=== PATIENT | female | born 1980 | race Caucasian/White ===

== ENCOUNTER 2017-07-17 17:55 | Inpatient (IN) | payer MEDICAID ==
--- NOTE | 2017-07-17 18:50 | EDM.PDOC ---
ED HPI GENERAL MEDICAL PROBLEM - General Chief Complaint: Upper Extremity Injury/Pain Stated Complaint: Swollen hand Time Seen by Provider: 07/17/17 18:35 Source of Information: Reports: Patient, RN Notes Reviewed History Limitations: Reports: No Limitations - History of Present Illness INITIAL COMMENTS - FREE TEXT/NARRATIVE: 37 year old female presents to the ED today with complaints of 1 week history of left arm swelling and pain. The symptoms started in the left antecubital and began to radiate up to her axilla and down to her wrist. She then developed swelling and pain to her wrist. She noticed streaking on the volar aspect of her inner forearm. She has checked her temp several times but denies fever. She denies injury or open skin lesions to the arm. She reports a bump on her axilla. She has a history of cellulitis to the arm. She had Bactrim DS left over at home and started this 4 days ago with no improvement. Left Hand Pain Score (Numeric/FACES): 7 - Related Data Allergies Allergy/AdvReac Type Severity Reaction Status Date / Time acetaminophen Allergy Redness Verified 07/17/17 18:07 amoxicillin Allergy Redness Verified 07/17/17 18:07 Penicillins Allergy Redness Verified 07/17/17 18:07 Home Meds: Home Meds . 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: Musculoskeletal History: Reports: Osteoarthritis Neurological History: Reports: Migraines Psychiatric History: Reports: Anxiety Endocrine/Metabolic History: Reports: Diabetes, Type I, Hypothyroidism Oncologic (Cancer) History: Reports: Cervix - Infectious Disease History Infectious Disease History: Reports: Chicken Pox - Past Surgical History HEENT Surgical History: Reports: Tonsillectomy Cardiovascular Surgical History: Reports: None Respiratory Surgical History: Reports: None Female Surgical History: Reports: Section Endocrine Surgical History: Reports: None Neurological Surgical History: Reports: None Musculoskeletal Surgical History: Reports: None Oncologic Surgical History: Reports: Other (See Below) Other Oncologic Surgeries/Procedures: LEEP Social & Family History - Tobacco Use Smoking Status *Q: Current Every Day Smoker Years of Tobacco use: 15 Packs/Tins Daily: 0.5 Used Tobacco, but Quit: No Second Hand Smoke Exposure: No - Caffeine Use Caffeine Use: Reports: Coffee, Energy Drinks, Soda, Tea - Recreational Drug Use Drug Use in Last 12 Months: Yes Recreational Drug Type: Reports: Marijuana/Hashish Other Recreational Drug Type: claims to have medicinal marijuana Review of Systems - Review of Systems Review Of Systems: See Below Respiratory: Reports: No Symptoms. Denies: Shortness of Breath Cardiovascular: Reports: No Symptoms. Denies: Chest Pain Musculoskeletal: Reports: Arm Pain Skin: Reports: Other (increased warmth and swelling left arm). Denies: Wound Neurological: Denies: Numbness, Tingling, Weakness ED EXAM, GENERAL - Physical Exam Exam: See Below Exam Limited By: No Limitations General Appearance: Alert, WD/WN, No Apparent Distress Respiratory/Chest: No Respiratory Distress, Lungs Clear, Normal Breath Sounds Cardiovascular: Regular Rate, Rhythm Extremities: Normal Capillary Refill, Joint Swelling (left wrist and hand ), Arm Pain, Increased Warmth (left forearm, wrist and hand ), Other ( lymphadenopathy to left axilla ). No: Redness Neurological: Alert, Normal Cognition, No Motor/Sensory Deficits Skin Exam: Warm, Dry, Ecchymosis (left arm ), Increased Warmth (left arm ) Course - Vital Signs Last Recorded V/S: Last Vital Signs Temp 98.2 F 07/17/17 18:03 Pulse 97 07/17/17 18:03 Resp 18 07/17/17 18:03 BP 155/84 H 07/17/17 18:03 Pulse Ox 100 07/17/17 18:03 - Orders/Labs/Meds Orders: Active Orders 24 hr Category Date Time Status CULTURE ANAEROBIC + SMEAR [RM] Stat Lab 07/17/17 21:31 Uncollected Labs: Laboratory Tests 07/17/17 07/17/17 07/17/17 Range/Units 19:15 19:15 19:15 WBC 7.54 (3.98-10.04) K/mm3 RBC 4.90 (3.98-5.22) M/mm3 Hgb 13.5 (11.2-15.7) gm/L Hct 39.1 (34.1-44.9) % MCV 79.8 (79.4-94.8) fl MCH 27.6 (25.6-32.2) pg MCHC 34.5 (32.2-35.5) g/dl RDW Std Deviation 40.7 (36.4-46.3) fL Plt Count 226 (182-369) K/mm3 MPV 10.6 (9.4-12.3) fl Neutrophils % (Manual) 48 (40-60) % Band Neutrophils % 0 (0-10) % Lymphocytes % (Manual) 42 H (20-40) % Atypical Lymphs % 0 % Monocytes % (Manual) 6 (2-10) % Eosinophils % (Manual) 4 (0.7-5.8) % Basophils % (Manual) 0 L (0.1-1.2) Platelet Estimate Adequate RBC Morph Comment Normal ESR 35 H (0-20) mm/hr Sodium 134 L (136-145) mEq/L Potassium 3.9 (3.5-5.1) mEq/L Chloride 98 (98-107) mEq/L Carbon Dioxide 30 (21-32) mEq/L Anion Gap 9.9 (5-15) BUN 7 (7-18) mg/dL Creatinine 0.8 (0.55-1.02) mg/dL Est Cr Clr Drug Dosing 77.63 mL/min Estimated GFR (MDRD) > 60 (>60) mL/min BUN/Creatinine Ratio 8.8 L (14-18) Glucose 224 H (74-106) mg/dL Calcium 9.0 (8.5-10.1) mg/dL Total Bilirubin 0.2 (0.2-1.0) mg/dL AST 19 (15-37) U/L ALT 19 (14-59) U/L Alkaline Phosphatase 83 (46-116) U/L C-Reactive Protein 5.8 H* (<1.0) mg/dL Total Protein 7.5 (6.4-8.2) g/dl Albumin 3.5 (3.4-5.0) g/dl Globulin 4.0 gm/dL Albumin/Globulin Ratio 0.9 L (1-2) Urine HCG, Qual (NEGATIVE) 07/17/17 Range/Units 20:00 WBC (3.98-10.04) K/mm3 RBC (3.98-5.22) M/mm3 Hgb (11.2-15.7) gm/L Hct (34.1-44.9) % MCV (79.4-94.8) fl MCH (25.6-32.2) pg MCHC (32.2-35.5) g/dl RDW Std Deviation (36.4-46.3) fL Plt Count (182-369) K/mm3 MPV (9.4-12.3) fl Neutrophils % (Manual) (40-60) % Band Neutrophils % (0-10) % Lymphocytes % (Manual) (20-40) % Atypical Lymphs % % Monocytes % (Manual) (2-10) % Eosinophils % (Manual) (0.7-5.8) % Basophils % (Manual) (0.1-1.2) Platelet Estimate RBC Morph Comment ESR (0-20) mm/hr Sodium (136-145) mEq/L Potassium (3.5-5.1) mEq/L Chloride (98-107) mEq/L Carbon Dioxide (21-32) mEq/L Anion Gap (5-15) BUN (7-18) mg/dL Creatinine (0.55-1.02) mg/dL Est Cr Clr Drug Dosing mL/min Estimated GFR (MDRD) (>60) mL/min BUN/Creatinine Ratio (14-18) Glucose (74-106) mg/dL Calcium (8.5-10.1) mg/dL Total Bilirubin (0.2-1.0) mg/dL AST (15-37) U/L ALT (14-59) U/L Alkaline Phosphatase (46-116) U/L C-Reactive Protein (<1.0) mg/dL Total Protein (6.4-8.2) g/dl Albumin (3.4-5.0) g/dl Globulin gm/dL Albumin/Globulin Ratio (1-2) Urine HCG, Qual Negative (NEGATIVE) Meds: Medications Discontinued Medications Generic Name Dose Route Start Last Admin Trade Name Freq PRN Reason Stop Dose Admin Hydromorphone HCl 1 mg 07/17/17 20:06 07/17/17 20:10 Dilaudid IM 07/17/17 20:07 1 mg ONETIME ONE Administration Ketorolac Tromethamine 60 mg 07/17/17 20:06 07/17/17 20:10 Toradol IM 07/17/17 20:07 60 mg ONETIME ONE Administration - Re-Assessments/Exams Free Text/Narrative Re-Assessment/Exam: CBC reveals normal WBC and differential. CRP is elevated at 5.8. ESR elevated at 35. CMP normal except for elevated glucose. Hcg negative. Venous doppler of left arm read by Dr. Hernandez. Report as follows "Normal compression is seen. Phasic flow and augmentation is seen within the subcutaneous vein and more distal veins. No intraluminal thrombus is identified. Heterogeneous area is seen within the posterior hand near the wrist measuring approximately 3.9 x 1.5 x 1.1 cm. Please correlate if patient has any infectious symptoms for this to represent phlegmon and early abscess. Findings could also represent liquefying hematoma. Impression: 1. No venous thrombosis is seen within the left upper extremity. 2. Abnormality within the posterior hand near the wrist as described above. 07/17/17 20:[address] Melgar. He will come in and aspirate the joint due to concern for septic joint. 07/17/17 21:33 Dr. Melgar aspirated the joint. Fluid sent for culture. Plan is that Dr. Melgar will admit the patient and consult Hospitalist. Departure - Departure Time of Disposition: 21:34 Disposition: Admitted As Inpatient 68 Condition: Fair Clinical Impression: Abscess, Ecchymosis of wrist - Discharge Information Forms: ED Department Discharge - My Orders Last 24 Hours: My Active Orders 07/17/17 21:31 CULTURE ANAEROBIC + SMEAR [RM] Stat - Assessment/Plan Last 24 Hours: My Active Orders 07/17/17 21:31 CULTURE ANAEROBIC + SMEAR [RM] Stat
[2017-07-17] MEDS ORDERED: HYDROmorphone 1 MG/ML Syringe IM ONE (20:06)
[2017-07-17] MEDS ORDERED: Ketorolac 60 MG/2 ML SDV IM ONE (20:06)
--- NOTE | 2017-07-17 20:30 | US ---
Left upper extremity venous ultrasound: Duplex and color flow imaging was obtained of the left internal jugular, subclavian, axillary, brachial, cephalic, radial, ulnar and basilic veins. Normal compression is seen. Phasic flow and augmentation is seen within the subcutaneous vein and more distal veins. No intraluminal thrombus is identified. Heterogeneous area is seen within the posterior hand near the wrist measuring approximately 3.9 x 1.5 x 1.1 cm. Please correlate if patient has any infectious symptoms for this to represent phlegmon and early abscess. Findings could also represent liquefying hematoma. Impression: 1. No venous thrombosis is seen within the left upper extremity. 2. Abnormality within the posterior hand near the wrist as described above. Diagnostic code #3
[2017-07-17] MEDS ORDERED: oxyCODONE 5 MG Tab PO PRN (21:46)
[2017-07-17] MEDS ORDERED: Ondansetron 4 MG Tab.DIS PO ONE (21:46)
[2017-07-17] MEDS ORDERED: Morphine 10 MG/ML Syringe IVPUSH PRN (21:46)
--- NOTE | 2017-07-17 21:48 | PCM.CONS ---
H&P History of Present Illness - General Date of Service: 07/17/17 Admit Problem/Dx: Upper Distal Extremity Cellulitis with Abscess Source of Information: Patient, Old Records, Provider, RN Notes Reviewed, Significant Other History Limitations: Reports: Physical Impairment - History of Present Illness Initial Comments - Free Text/Narative: This is a 37-year-old white female with past medical history of hypothyroidism, migraines, anxiety, hx/o substance abuse and osteoarthritis, who presents to the emergency department with complaint of one-week history of left arm swelling and pain. Her symptoms started on her elbow and it began to radiate to her axilla and then down to her wrist. Patient noticed a streaking on the underside of her inner forearm. Patient denies any fever or chills. No recent injury or trauma or skin breaks noted on her arm. Patient carries a hx/o type I diabetic currently on Tresiba for insulin regimen. She has had cellulitis in the past. Patient has been treated with Bactrim DS but without any improvements. Her last A1c according to her was 11 a couple of months ago. She doesn't normally check her sugar but reports she runs in the upper 200 range. She has taken her insulin dose (80 units) today. Her initial workup in emergency department shows a fairly unremarkable CBC. ESR is 35 and CRP is 5.8. Her chemistry is remarkable for sodium 134, and glucose of 224. screening is negative. Patient is being admitted for distal upper extremity soft tissue skin infection. Hospital medicine is being consulted for medical management of her diabetes. Left Hand Pain Score (Numeric/FACES): 7 - Related Data Allergies/Adverse Reactions: Allergies Allergy/AdvReac Type Severity Reaction Status Date / Time acetaminophen Allergy Redness Verified 07/17/17 18:07 amoxicillin Allergy Redness Verified 07/17/17 18:07 Penicillins Allergy Redness Verified 07/17/17 18:07 Home Medications: Home Meds Levothyroxine [Synthroid] 100 mcg PO ACBREAKFAST 07/17/17 [History] oxyCODONE HCl [Oxycodone HCl] 20 mg PO QID 07/17/17 [History] ALPRAZolam [Xanax] 0.5 mg PO BID 07/18/17 [History] Tresiba 85 units SQ DAILY 07/18/17 [History] Past Medical History Cardiovascular History: Reports: Heart Murmur Respiratory History: Reports: Bronchitis, Recurrent Genitourinary History: Reports: Other (See Below) Other Genitourinary History: kidney infection in February 2017 [employer]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: Musculoskeletal History: Reports: Osteoarthritis Neurological History: Reports: Migraines Psychiatric History: Reports: Anxiety Endocrine/Metabolic History: Reports: Diabetes, Type I, Hypothyroidism Oncologic (Cancer) History: Reports: Cervix - Infectious Disease History Infectious Disease History: Reports: Chicken Pox - Past Surgical History HEENT Surgical History: Reports: Tonsillectomy Cardiovascular Surgical History: Reports: None Respiratory Surgical History: Reports: None Female Surgical History: Reports: Section Endocrine Surgical History: Reports: None Neurological Surgical History: Reports: None Musculoskeletal Surgical History: Reports: None Oncologic Surgical History: Reports: Other (See Below) Other Oncologic Surgeries/Procedures: LEEP Social & Family History - Tobacco Use Smoking Status *Q: Current Every Day Smoker Years of Tobacco use: 15 Packs/Tins Daily: 0.5 Used Tobacco, but Quit: No Second Hand Smoke Exposure: No - Caffeine Use Caffeine Use: Reports: Coffee, Energy Drinks, Soda, Tea - Recreational Drug Use Drug Use in Last 12 Months: Yes Recreational Drug Type: Reports: Marijuana/Hashish Other Recreational Drug Type: claims to have medicinal marijuana H&P Review of Systems - Review of Systems: Review Of Systems: See Below General: Denies: Fever, Chills, Malaise, Weakness, Fatigue HEENT: Reports: No Symptoms Pulmonary: Denies: Shortness of Breath Cardiovascular: Denies: Chest Pain Gastrointestinal: Denies: Abdominal Pain, Nausea, Vomiting Genitourinary: Reports: No Symptoms Musculoskeletal: Reports: Arm Pain Skin: Reports: Erythema, Other (edema of left wirst) Psychiatric: Denies: Depression, Anxiety, Hallucinations, Hallucinations ( Auditory) Neurological: Denies: Confusion, Difficulty Walking, Weakness, Gait Disturbance Hematologic/Lymphatic: Reports: No Symptoms Immunologic: Reports: No Symptoms Exam - Exam Exam: See Below - Vital Signs Vital Signs: Last Vital Signs Temp 36.8 C 07/17/17 18:03 Pulse 97 07/17/17 18:03 Resp 18 07/17/17 18:03 BP 155/84 H 07/17/17 18:03 Pulse Ox 100 07/17/17 18:03 Weight: 61.235 kg - Exam General: Alert, Oriented, Cooperative. No: Mild Distress HEENT: Conjunctiva Clear, EACs Clear, EOMI, Hearing Intact, Mucosa Moist & [place] , Nares Patent, Normal Nasal Septum, Posterior Pharynx Clear, Pupils Equal, Pupils Reactive Neck: Supple, Trachea Midline, +2 Carotid Pulse wo Bruit, Full Range of Motion Lungs: Clear to Auscultation, Normal Respiratory Effort Cardiovascular: Regular Rate, Regular Rhythm GI/Abdominal Exam: Normal Bowel Sounds, Soft, Non-Tender, No Organomegaly, No Distention, No Abnormal Bruit, No Mass (Female) Exam: Deferred Rectal (Female) Exam: Deferred Back Exam: Normal Inspection, Full Range of Motion Extremities: Normal Inspection, Normal Range of Motion, Non-Tender, No Pedal Edema, Normal Capillary Refill, Arm Pain Peripheral Pulses: 3+: Posterior Tibial (L), Posterior Tibial (R), Dorsalis Pedis (L), Dorsalis Pedis (R) Skin: Warm, Dry, Intact Skin Alteration Location (Drawings Not To Scale): 1 - Infected left foream and wrist; red and warm to the touch; motor skills and sentation are intact Neuro Extensive - Mental Status: Oriented x3, Normal Cognition, Memory Intact Neuro Extensive - Motor, Sensory, Reflexes: CN II-XII Intact, Normal Gait Psychiatric: Alert, Normal Affect, Normal Mood - Patient Data Lab Results Last 24 hrs: Laboratory Results - last 24 hr 07/17/17 07/17/17 07/17/17 Range/Units 19:15 19:15 19:15 WBC 7.54 (3.98-10.04) K/mm3 RBC 4.90 (3.98-5.22) M/mm3 Hgb 13.5 (11.2-15.7) gm/L Hct 39.1 (34.1-44.9) % MCV 79.8 (79.4-94.8) fl MCH 27.6 (25.6-32.2) pg MCHC 34.5 (32.2-35.5) g/dl RDW Std Deviation 40.7 (36.4-46.3) fL Plt Count 226 (182-369) K/mm3 MPV 10.6 (9.4-12.3) fl Neutrophils % (Manual) 48 (40-60) % Band Neutrophils % 0 (0-10) % Lymphocytes % (Manual) 42 H (20-40) % Atypical Lymphs % 0 % Monocytes % (Manual) 6 (2-10) % Eosinophils % (Manual) 4 (0.7-5.8) % Basophils % (Manual) 0 L (0.1-1.2) Platelet Estimate Adequate RBC Morph Comment Normal ESR 35 H (0-20) mm/hr Sodium 134 L (136-145) mEq/L Potassium 3.9 (3.5-5.1) mEq/L Chloride 98 (98-107) mEq/L Carbon Dioxide 30 (21-32) mEq/L Anion Gap 9.9 (5-15) BUN 7 (7-18) mg/dL Creatinine 0.8 (0.55-1.02) mg/dL Est Cr Clr Drug Dosing 77.63 mL/min Estimated GFR (MDRD) > 60 (>60) mL/min BUN/Creatinine Ratio 8.8 L (14-18) Glucose 224 H (74-106) mg/dL Calcium 9.0 (8.5-10.1) mg/dL Total Bilirubin 0.2 (0.2-1.0) mg/dL AST 19 (15-37) U/L ALT 19 (14-59) U/L Alkaline Phosphatase 83 (46-116) U/L C-Reactive Protein 5.8 H* (<1.0) mg/dL Total Protein 7.5 (6.4-8.2) g/dl Albumin 3.5 (3.4-5.0) g/dl Globulin 4.0 gm/dL Albumin/Globulin Ratio 0.9 L (1-2) Urine HCG, Qual (NEGATIVE) 07/17/17 Range/Units 20:00 WBC (3.98-10.04) K/mm3 RBC (3.98-5.22) M/mm3 Hgb (11.2-15.7) gm/L Hct (34.1-44.9) % MCV (79.4-94.8) fl MCH (25.6-32.2) pg MCHC (32.2-35.5) g/dl RDW Std Deviation (36.4-46.3) fL Plt Count (182-369) K/mm3 MPV (9.4-12.3) fl Neutrophils % (Manual) (40-60) % Band Neutrophils % (0-10) % Lymphocytes % (Manual) (20-40) % Atypical Lymphs % % Monocytes % (Manual) (2-10) % Eosinophils % (Manual) (0.7-5.8) % Basophils % (Manual) (0.1-1.2) Platelet Estimate RBC Morph Comment ESR (0-20) mm/hr Sodium (136-145) mEq/L Potassium (3.5-5.1) mEq/L Chloride (98-107) mEq/L Carbon Dioxide (21-32) mEq/L Anion Gap (5-15) BUN (7-18) mg/dL Creatinine (0.55-1.02) mg/dL Est Cr Clr Drug Dosing mL/min Estimated GFR (MDRD) (>60) mL/min BUN/Creatinine Ratio (14-18) Glucose (74-106) mg/dL Calcium (8.5-10.1) mg/dL Total Bilirubin (0.2-1.0) mg/dL AST (15-37) U/L ALT (14-59) U/L Alkaline Phosphatase (46-116) U/L C-Reactive Protein (<1.0) mg/dL Total Protein (6.4-8.2) g/dl Albumin (3.4-5.0) g/dl Globulin gm/dL Albumin/Globulin Ratio (1-2) Urine HCG, Qual Negative (NEGATIVE) Result Diagrams: 07/18/17 06:04 07/18/17 06:04 Consult PN Assessment/Plan POD#: 0 Problem List Initiated/Reviewed/Updated: Yes Plan: Assessment/Plan: Acute: Distal Upper Extremity Cellulitis/SSTI with Abscess - S/p Aspiration by Dr. Melgar - Management per primary team Hyperglycemia with DM - Likely medically non-compliant - Check for A1C, Lipid Panel, UA and Urine Microalbumin - Lantus 13 units SubQ HS and ISS medium dose QIDandHS - Diabetic consult - Lisinopril 10 mg po daily for renal protection - ADA diet once po per primary team Chronic: OA Migraines Hypothyroidism Anxiety Hx/o Substance Abuse Nicotine Dependence, Nicotine Patch daily Plan: She is clinically stable Routine AM labs Start low dose ASA after ID if planned in AM Recommend ADA diet Continue home meds PT/OT consult IS q2 awake Additional order as above Thank you for the opportunity to participate in the management of this patient Requesting Provider: Dr. Melgar Date Consult Requested: 07/17/17 Reason for Consult: Medical Management of Diabetes Patient History Reviewed: Yes Admission H&P Reviewed: Yes Consult Result/Summary:: Uncontrolled Glucose Notified Requestor: Yes
[2017-07-17] MEDS ORDERED: Temazepam 15 MG Cap PO PRN (21:52)
[2017-07-17] MEDS ORDERED: hydrALAZINE 20 MG/ML SDV IVPUSH PRN (21:52)
[2017-07-17] MEDS ORDERED: Polyethylene Glycol 3350 Powder 17 GM Packet PO PRN (21:52)
[2017-07-17] MEDS ORDERED: Docusate Sodium 100 MG Cap PO PRN (21:52)
[2017-07-17] MEDS ORDERED: Bisacodyl 5 MG Tab PO PRN (21:52)
[2017-07-17] MEDS ORDERED: Albuterol/Ipratropium 3.0-0.5 MG/3 ML Neb Soln NEB PRN (21:52)
[2017-07-17] MEDS ORDERED: LORazepam 2 MG/ML MDV IVPUSH PRN (21:52)
[2017-07-17] MEDS ORDERED: Ondansetron 4 MG/2 ML SDV IV PRN (21:52)
[2017-07-17] MEDS ORDERED: Metoprolol Tartrate 5 MG/5 ML SDV IVPUSH PRN (21:52)
[2017-07-17] MEDS ORDERED: Promethazine 12.5 MG in Sodium Chloride 0.9% 50 ML IV PRN (21:52)
[2017-07-17] MEDS ORDERED: 50% Dextrose in Water 50 ML Syringe IVPUSH PRN (21:54)
[2017-07-17] MEDS ORDERED: Insulin Detemir 100 Units/ML 3 ML Pen SUBCUT ONE (21:56)
--- NOTE | 2017-07-17 23:09 | PCM.SN ---
- Free Text/Narrative Note: 07/17/17 [id number] IV started 22 guage right inner wrist times 1 attempt. [email or web address]
[2017-07-17] MEDS ORDERED: HYDROmorphone 0.5 MG/0.5 ML Syringe ONE (23:37)
[2017-07-17] MEDS: HYDROmorphone 0.5 MG/0.5 ML Syringe IVPUSH PRN (23:42)
[2017-07-17] MEDS: LORazepam 2 MG/ML MDV IV PRN (23:57)
[2017-07-18] MEDS: Insulin Aspart 100 Units/ML 3 ML Pen SUBCUT SCH ×5 (00:05→22:02)
[2017-07-18] MEDS: oxyCODONE 5 MG Tab PO PRN ×4 (00:20→23:16)
[2017-07-18] MEDS ORDERED: Insulin Detemir 100 Units/ML 3 ML Pen SUBCUT ONE (00:30)
[2017-07-18] MEDS ORDERED: Pneumococcal Polyvalent-23 Vaccine 0.5 ML SDV IM ONE (03:00)
[2017-07-18] MEDS: HYDROmorphone 0.5 MG/0.5 ML Syringe IVPUSH PRN ×9 (03:57→23:16)
[2017-07-18] MEDS ORDERED: Dextrose 5% in Water 1,000 ML ONE (06:04)
[2017-07-18] MEDS ORDERED: Dextrose 5% in Water 1,000 ML IV SCH (06:15)
[2017-07-18] MEDS ORDERED: Levothyroxine 100 MCG Tab PO SCH (09:15)
--- NOTE | 2017-07-18 09:17 | PCM.CONSN ---
- General Info Date of Service: 07/18/17 Admission Dx/Problem (Free Text): Upper Distal Extremity Cellulitis with Abscess Patient was seen just prior to going to surgery for I&D of left hand. Functional Status: Reports: Ambulating, Urinating. Denies: Tolerating Diet ( NPO since [place]) - Review of Systems General: Denies: Fever HEENT: Reports: No Symptoms Pulmonary: Reports: No Symptoms Cardiovascular: Reports: No Symptoms Gastrointestinal: Denies: Abdominal Pain, Diarrhea, Nausea, Vomiting Genitourinary: Reports: No Symptoms Musculoskeletal: Reports: Arm Pain, Hand Pain Neurological: Reports: No Symptoms Psychiatric: Reports: No Symptoms - Patient Data Vitals - Most Recent: Last Vital Signs Temp 97.2 F 07/18/17 08:28 Pulse 63 07/18/17 08:28 Resp 12 07/18/17 08:28 BP 116/68 07/18/17 08:28 Pulse Ox 100 07/18/17 08:28 Weight - Most Recent: 135 lb 8 oz I&O - Last 24 Hours: Intake & Output 07/17/17 07/18/17 07/18/17 22:59 06:59 14:59 Intake Total 360 Output Total 300 Balance 60 Lab Results Last 24 Hours: Laboratory Results - last 24 hr 07/18/17 07/18/17 07/18/17 Range/Units 00:03 00:30 00:30 WBC (3.98-10.04) K/mm3 RBC (3.98-5.22) M/mm3 Hgb (11.2-15.7) gm/L Hct (34.1-44.9) % MCV (79.4-94.8) fl MCH (25.6-32.2) pg MCHC (32.2-35.5) g/dl RDW Std Deviation (36.4-46.3) fL Plt Count (182-369) K/mm3 MPV (9.4-12.3) fl Neut % (Auto) (34.0-71.1) % Lymph % (Auto) (19.3-51.7) % [place] % (Auto) (4.7-12.5) % Eos % (Auto) (0.7-5.8) Baso % (Auto) (0.1-1.2) % Neut # (Auto) (1.56-6.13) K/mm3 Lymph # (Auto) (1.18-3.74) K/mm3 [place] # (Auto) (0.24-0.36) K/mm3 Eos # (Auto) (0.04-0.36) K/mm3 Baso # (Auto) (0.01-0.08) K/mm3 Sodium (136-145) mEq/L Potassium (3.5-5.1) mEq/L Chloride (98-107) mEq/L Carbon Dioxide (21-32) mEq/L Anion Gap (5-15) BUN (7-18) mg/dL Creatinine (0.55-1.02) mg/dL Est Cr Clr Drug Dosing mL/min Estimated GFR (MDRD) (>60) mL/min BUN/Creatinine Ratio (14-18) Glucose (74-106) mg/dL POC Glucose 112 H (70-105) mg/dL Calcium (8.5-10.1) mg/dL Magnesium (1.8-2.4) mg/dl Triglycerides (<150) mg/dL Cholesterol (<200) mg/dL LDL Cholesterol Direct (<100) mg/dL HDL Cholesterol (40-59) mg/dL Ur Random Creatinine 79.6 (30.0-125.0) mg/dL Ur Random Microalbumin 4.7 5.2 (1.3-20.0) mg/L Microalb/Creat Ratio 6.5 (0-30) mg/g 07/18/17 07/18/17 07/18/17 Range/Units 05:18 06:04 06:04 WBC 6.89 (3.98-10.04) K/mm3 RBC 4.83 (3.98-5.22) M/mm3 Hgb 13.5 (11.2-15.7) gm/L Hct 39.1 (34.1-44.9) % MCV 81.0 (79.4-94.8) fl MCH 28.0 (25.6-32.2) pg MCHC 34.5 (32.2-35.5) g/dl RDW Std Deviation 41.4 (36.4-46.3) fL Plt Count 257 (182-369) K/mm3 MPV 11.1 (9.4-12.3) fl Neut % (Auto) 43.9 (34.0-71.1) % Lymph % (Auto) 38.2 (19.3-51.7) % [place] % (Auto) 12.9 H (4.7-12.5) % Eos % (Auto) 4.6 (0.7-5.8) Baso % (Auto) 0.3 (0.1-1.2) % Neut # (Auto) 3.02 (1.56-6.13) K/mm3 Lymph # (Auto) 2.63 (1.18-3.74) K/mm3 [place] # (Auto) 0.89 H (0.24-0.36) K/mm3 Eos # (Auto) 0.32 (0.04-0.36) K/mm3 Baso # (Auto) 0.02 (0.01-0.08) K/mm3 Sodium (136-145) mEq/L Potassium (3.5-5.1) mEq/L Chloride (98-107) mEq/L Carbon Dioxide (21-32) mEq/L Anion Gap (5-15) BUN (7-18) mg/dL Creatinine (0.55-1.02) mg/dL Est Cr Clr Drug Dosing mL/min Estimated GFR (MDRD) (>60) mL/min BUN/Creatinine Ratio (14-18) Glucose (74-106) mg/dL POC Glucose 65 L (70-105) mg/dL Calcium (8.5-10.1) mg/dL Magnesium (1.8-2.4) mg/dl Triglycerides 95 (<150) mg/dL Cholesterol 157 (<200) mg/dL LDL Cholesterol Direct 95 (<100) mg/dL HDL Cholesterol 53.0 (40-59) mg/dL Ur Random Creatinine (30.0-125.0) mg/dL Ur Random Microalbumin (1.3-20.0) mg/L Microalb/Creat Ratio (0-30) mg/g 07/18/17 07/18/17 07/18/17 Range/Units 06:04 06:41 07:55 WBC (3.98-10.04) K/mm3 RBC (3.98-5.22) M/mm3 Hgb (11.2-15.7) gm/L Hct (34.1-44.9) % MCV (79.4-94.8) fl MCH (25.6-32.2) pg MCHC (32.2-35.5) g/dl RDW Std Deviation (36.4-46.3) fL Plt Count (182-369) K/mm3 MPV (9.4-12.3) fl Neut % (Auto) (34.0-71.1) % Lymph % (Auto) (19.3-51.7) % [place] % (Auto) (4.7-12.5) % Eos % (Auto) (0.7-5.8) Baso % (Auto) (0.1-1.2) % Neut # (Auto) (1.56-6.13) K/mm3 Lymph # (Auto) (1.18-3.74) K/mm3 [place] # (Auto) (0.24-0.36) K/mm3 Eos # (Auto) (0.04-0.36) K/mm3 Baso # (Auto) (0.01-0.08) K/mm3 Sodium 139 (136-145) mEq/L Potassium 3.8 (3.5-5.1) mEq/L Chloride 102 (98-107) mEq/L Carbon Dioxide 27 (21-32) mEq/L Anion Gap 13.8 (5-15) BUN 12 (7-18) mg/dL Creatinine 0.8 (0.55-1.02) mg/dL Est Cr Clr Drug Dosing 77.63 mL/min Estimated GFR (MDRD) > 60 (>60) mL/min BUN/Creatinine Ratio 15.0 (14-18) Glucose 64 L (74-106) mg/dL POC Glucose 82 98 (70-105) mg/dL Calcium 9.2 (8.5-10.1) mg/dL Magnesium 2.0 (1.8-2.4) mg/dl Triglycerides (<150) mg/dL Cholesterol (<200) mg/dL LDL Cholesterol Direct (<100) mg/dL HDL Cholesterol (40-59) mg/dL Ur Random Creatinine (30.0-125.0) mg/dL Ur Random Microalbumin (1.3-20.0) mg/L Microalb/Creat Ratio (0-30) mg/g Med Orders - Current: Current Medications Albuterol/Ipratropium (Duoneb 3.0-0.5 Mg/3 Ml) 3 ml NEB Q4H PRN PRN Reason: Shortness Of Breath/wheezing Bisacodyl (Dulcolax) 5 mg PO DAILY PRN PRN Reason: Constipation Dextrose/Water (Dextrose 50% In Water) 50 ml IVPUSH ASDIRECTED PRN PRN Reason: Hypoglycemia Docusate Sodium (Colace) 100 mg PO BID PRN PRN Reason: Constipation Hydralazine HCl (Apresoline) 20 mg IVPUSH Q4H PRN PRN Reason: Hypertension Hydromorphone HCl (Dilaudid) 0.5 mg IVPUSH Q2H PRN PRN Reason: Pain Last Admin: 07/18/17 06:17 Dose: 0.5 mg Promethazine HCl 12.5 mg/ (Sodium Chloride) 50.5 mls @ 100 mls/hr IV Q6H PRN PRN Reason: Nausea/Vomiting Dextrose/Water (Dextrose 5% In Water) 1,000 mls @ 100 mls/hr IV ASDIRECTED SB Last Admin: 07/18/17 06:11 Dose: 100 mls/hr Insulin Aspart (Novolog) 0 unit SUBCUT QIDACANDBED [facility] PRN Reason: Protocol Last Admin: 07/18/17 08:03 Dose: Not Given Insulin Detemir (Levemir) 13 unit SUBCUT BEDTIME [facility] Levothyroxine Sodium (Levothyroxine) 112 mcg PO ACBREAKFAST [facility] Lisinopril (Prinivil) 10 mg PO DAILY [facility] Lorazepam (Ativan) 2 mg IVPUSH Q4H PRN PRN Reason: Seizures Lorazepam (Ativan) 1 mg IV Q6H PRN PRN Reason: Anxiety Last Admin: 07/17/17 23:57 Dose: 1 mg Magnesium Sulfate (Pharmacy To Dose - Magnesium Replacement) 0 dose .XX ASDIRECTED PRN PRN Reason: RX TO WATCH MAG LEVELS Metoprolol Tartrate (Lopressor) 5 mg IVPUSH Q4H PRN PRN Reason: Tachycardia Ondansetron HCl (Zofran) 4 mg IV Q6H PRN PRN Reason: Nausea/Vomiting Oxycodone HCl (Oxycodone) 5 - 10 mg PO Q4H PRN PRN Reason: Pain Last Admin: 07/18/17 00:20 Dose: 10 mg Polyethylene Glycol (Miralax) 17 gm PO DAILY PRN PRN Reason: Constipation Potassium Chloride (Pharmacy To Dose - Potassium Replacement) 0 dose .XX ASDIRECTED PRN PRN Reason: RX TO WATCH K LEVELS Senna/Docusate Sodium (Senna Plus) 1 tab PO BID PRN PRN Reason: Constipation Temazepam (Restoril) 15 mg PO BEDTIME PRN PRN Reason: Sleep Discontinued Medications Hydromorphone HCl (Dilaudid) 1 mg IM ONETIME ONE Stop: 07/17/17 20:07 Last Admin: 07/17/17 20:10 Dose: 1 mg Hydromorphone HCl (Dilaudid) Confirm Administered Dose 0.5 mg .ROUTE .STK-MED ONE Stop: 07/17/17 23:38 Last Admin: 07/17/17 23:56 Dose: Not Given Vancomycin HCl 1 gm/ Sodium (Chloride) 250 mls @ 100 mls/hr IV BID ONE Stop: 07/18/17 00:15 Last Admin: 07/17/17 23:49 Dose: 100 mls/hr Dextrose/Water (Dextrose 5% In Water) Confirm Administered Dose 1,000 mls @ as directed .ROUTE .STK-MED ONE Stop: 07/18/17 06:05 Last Admin: 07/18/17 08:03 Dose: Not Given Insulin Detemir (Levemir) 15 unit SUBCUT ONETIME ONE Stop: 07/17/17 21:57 Last Admin: 07/18/17 02:54 Dose: Not Given Insulin Detemir (Levemir) 15 unit SUBCUT ONETIME ONE Stop: 07/18/17 00:31 Last Admin: 07/18/17 00:24 Dose: Not Given Ketorolac Tromethamine (Toradol) 60 mg IM ONETIME ONE Stop: 07/17/17 20:07 Last Admin: 07/17/17 20:10 Dose: 60 mg Levothyroxine Sodium (Synthroid) 100 mcg PO ACBREAKFAST [facility] Morphine Sulfate (Morphine) 2 mg IVPUSH Q2H PRN PRN Reason: Pain (moderate 4-6) Ondansetron HCl (Zofran Odt) 4 mg PO Q6H ONE Stop: 07/17/17 21:47 Last Admin: 07/17/17 23:51 Dose: Not Given Oxycodone HCl (Oxycodone) 5 mg PO Q4H PRN PRN Reason: Pain Pneumococcal Polyvalent Vaccine (Pneumovax 23) 0.5 ml IM .ONCE ONE Stop: 07/18/17 03:01 - Exam Quality Assessment: DVT Prophylaxis General: Alert, Oriented, No Acute Distress HEENT: Pupils Equal, EOMI, Mucous Membr. Moist/[place] Neck: Supple Lungs: Clear to Auscultation, Normal Respiratory Effort Cardiovascular: Regular Rate, Regular Rhythm Extremities: Normal Capillary Refill, Other (left hand, dorsal aspect with swelling, erythema and pain to palpation) Peripheral Pulses: 2+: Radial (L), Radial (R) Neurological: No New Focal Deficit Psy/Mental Status: Alert, Normal Affect, Normal Mood Consult PN Assessment/Plan (1) Diabetes SNOMED Code(s): 98899804 Code(s): E11.9 - TYPE 2 DIABETES MELLITUS WITHOUT COMPLICATIONS Priority: High Current Visit: Yes Qualifiers: Diabetes mellitus type: type 2 Diabetes mellitus complication status: with skin complications Diabetes mellitus complication detail: with other skin complication (2) Abscess SNOMED Code(s): 449751464 Code(s): L02.91 - CUTANEOUS ABSCESS, UNSPECIFIED Priority: High Current Visit: Yes (3) Ecchymosis of wrist SNOMED Code(s): 50547526 Code(s): S60.219A - CONTUSION OF UNSPECIFIED WRIST, INITIAL ENCOUNTER Priority: High Current Visit: Yes Problem List Initiated/Reviewed/Updated: Yes My Orders Last 24 Hours: My Active Orders 07/18/17 06:15 Dextrose 5% in Water 1,000 ml IV ASDIRECTED 07/18/17 09:09 DRUG SCREEN, URINE [URCHEM] Stat UA W/MICROSCOPIC [URIN] Stat 07/18/17 09:15 Levothyroxine 112 mcg PO ACBREAKFAST Plan: I/P: Cellulitis with abscess to left hand/wrist -Orthopedics following- I&D today -Cultures pending, cont Vanco BID via PICC-- to be placed today -Pain controlled Diabetes -AC/HS accuchecks with SSI -Lantus -A1C 10.8; noncompliant with medical care/follow up, no PCP that she can identify locally in [place] where she resides -CDE -Maintenance Trainer consult -Lisinopril for renal protection -Lipid panel -Urine microalbumin -Recommend eye exam Hypothyroidism -TSH elevated >30 -Noncompliance with taking medication- admits to this -Levothyroxine daily Medical noncompliance- as above with DM and thyroid disease Other: GI/DVT prophylax CM/SW for assist with DC plan, may need Vibra for bed bug exterminator abx therapy and wound care, pending cultures and need for wound care pending Ortho/primary attending recommendations. Patient is Full Code status.
[2017-07-18] MEDS: Levothyroxine 112 MCG Tab PO SCH (09:29)
[2017-07-18] MEDS: Lisinopril 10 MG Tab PO SCH (09:29)
--- NOTE | 2017-07-18 11:08 | PCM.PREANE ---
Preanesthetic Assessment - Anesthesia/Transfusion/Family Hx Anesthesia History: Prior Anesthesia Without Reaction Family History of Anesthesia Reaction: No Transfusion History: No Prior Transfusion(s) - Review of Systems General: No Symptoms Pulmonary: No Symptoms Cardiovascular: No Symptoms Gastrointestinal: No Symptoms Neurological: Numbness (fingers) Other: Reports: Diabetes, Thyroid Problems (hypo) - Physical Assessment NPO Status Date: 07/18/17 NPO Status Time: 11:00 Pulse: 63 O2 Sat by Pulse Oximetry: 100 Respiratory Rate: 12 Blood Pressure: 121/68 Temperature: 36.2 C Vital Signs: Last Vital Signs Temp 36.2 C 07/18/17 08:28 Pulse 63 07/18/17 08:28 Resp 12 07/18/17 08:28 BP 121/68 07/18/17 09:29 Pulse Ox 100 07/18/17 08:28 Height: 1.57 m Weight: 61.462 kg ASA Class: 2 Airway Class: Mallampati = 1 Dentition: Reports: Normal Dentition, Caries Thyro-Mental Finger Breadths: 3 Mouth Opening Finger Breadths: 3 ROM/Head Extension: Full Lungs: Clear to Auscultation, Normal Respiratory Effort Cardiovascular: Regular Rate, Regular Rhythm - Lab Values: Laboratory Last Values WBC 6.89 K/mm3 (3.98-10.04) 07/18/17 06:04 RBC 4.83 M/mm3 (3.98-5.22) 07/18/17 06:04 Hgb 13.5 gm/L (11.2-15.7) 07/18/17 06:04 Hct 39.1 % (34.1-44.9) 07/18/17 06:04 MCV 81.0 fl (79.4-94.8) 07/18/17 06:04 MCH 28.0 pg (25.6-32.2) 07/18/17 06:04 MCHC 34.5 g/dl (32.2-35.5) 07/18/17 06:04 RDW Std Deviation 41.4 fL (36.4-46.3) 07/18/17 06:04 Plt Count 257 K/mm3 (182-369) 07/18/17 06:04 MPV 11.1 fl (9.4-12.3) 07/18/17 06:04 Neut % (Auto) 43.9 % (34.0-71.1) 07/18/17 06:04 Lymph % (Auto) 38.2 % (19.3-51.7) 07/18/17 06:04 [place] % (Auto) 12.9 % (4.7-12.5) H 07/18/17 06:04 Eos % (Auto) 4.6 (0.7-5.8) 07/18/17 06:04 Baso % (Auto) 0.3 % (0.1-1.2) 07/18/17 06:04 Neut # (Auto) 3.02 K/mm3 (1.56-6.13) 07/18/17 06:04 Lymph # (Auto) 2.63 K/mm3 (1.18-3.74) 07/18/17 06:04 [place] # (Auto) 0.89 K/mm3 (0.24-0.36) H 07/18/17 06:04 Eos # (Auto) 0.32 K/mm3 (0.04-0.36) 07/18/17 06:04 Baso # (Auto) 0.02 K/mm3 (0.01-0.08) 07/18/17 06:04 Neutrophils % (Manual) 48 % (40-60) 07/17/17 19:15 Band Neutrophils % 0 % (0-10) 07/17/17 19:15 Lymphocytes % (Manual) 42 % (20-40) H 07/17/17 19:15 Atypical Lymphs % 0 % 07/17/17 19:15 Monocytes % (Manual) 6 % (2-10) 07/17/17 19:15 Eosinophils % (Manual) 4 % (0.7-5.8) 07/17/17 19:15 Basophils % (Manual) 0 (0.1-1.2) L 07/17/17 19:15 Platelet Estimate Adequate 07/17/17 19:15 RBC Morph Comment Normal 07/17/17 19:15 ESR 35 mm/hr (0-20) H 07/17/17 19:15 Sodium 139 mEq/L (136-145) 07/18/17 06:04 Potassium 3.8 mEq/L (3.5-5.1) 07/18/17 06:04 Chloride 102 mEq/L (98-107) 07/18/17 06:04 Carbon Dioxide 27 mEq/L (21-32) 07/18/17 06:04 Anion Gap 13.8 (5-15) 07/18/17 06:04 BUN 12 mg/dL (7-18) 07/18/17 06:04 Creatinine 0.8 mg/dL (0.55-1.02) 07/18/17 06:04 Est Cr Clr Drug Dosing 77.63 mL/min 07/18/17 06:04 Estimated GFR (MDRD) > 60 mL/min (>60) 07/18/17 06:04 BUN/Creatinine Ratio 15.0 (14-18) 07/18/17 06:04 Glucose 64 mg/dL (74-106) L 07/18/17 06:04 POC Glucose 111 mg/dL (70-105) H 07/18/17 09:33 Hemoglobin A1c 10.80 % (4.50-6.20) H 07/17/17 17:15 Calcium 9.2 mg/dL (8.5-10.1) 07/18/17 06:04 Magnesium 2.0 mg/dl (1.8-2.4) 07/18/17 06:04 Total Bilirubin 0.2 mg/dL (0.2-1.0) 07/17/17 19:15 AST 19 U/L (15-37) 07/17/17 19:15 ALT 19 U/L (14-59) 07/17/17 19:15 Alkaline Phosphatase 83 U/L (46-116) 07/17/17 19:15 C-Reactive Protein 5.8 mg/dL (<1.0) H* 07/17/17 19:15 Total Protein 7.5 g/dl (6.4-8.2) 07/17/17 19:15 Albumin 3.5 g/dl (3.4-5.0) 07/17/17 19:15 Globulin 4.0 gm/dL 07/17/17 19:15 Albumin/Globulin Ratio 0.9 (1-2) L 07/17/17 19:15 Triglycerides 95 mg/dL (<150) 07/18/17 06:04 Cholesterol 157 mg/dL (<200) 07/18/17 06:04 LDL Cholesterol Direct 95 mg/dL (<100) 07/18/17 06:04 HDL Cholesterol 53.0 mg/dL (40-59) 07/18/17 06:04 Free T4 0.69 ng/dL (0.76-1.46) L 07/17/17 17:15 TSH 3rd Generation 39.073 uIU/mL (0.358-3.74) H 07/17/17 17:15 Urine Color Yellow (Yellow) 07/18/17 08:30 Urine Appearance Clear (Clear) 07/18/17 08:30 Urine pH 8.0 (5.0-8.0) 07/18/17 08:30 Ur Specific [place] 1.020 (1.005-1.030) 07/18/17 08:30 Urine Protein Negative (Negative) 07/18/17 08:30 Urine Glucose (UA) Trace (Negative) H 07/18/17 08:30 Urine Ketones Negative (Negative) 07/18/17 08:30 Urine Occult Blood Negative (Negative) 07/18/17 08:30 Urine Nitrite Negative (Negative) 07/18/17 08:30 Urine Bilirubin Negative (Negative) 07/18/17 08:30 Urine Urobilinogen 0.2 (0.2-1.0) 07/18/17 08:30 Ur Leukocyte Esterase Negative (Negative) 07/18/17 08:30 Urine RBC 0-5 /hpf (0-5) 07/18/17 08:30 Urine WBC 0-5 /hpf (0-5) 07/18/17 08:30 Ur Epithelial Cells 0-5 /hpf (0-5) 07/18/17 08:30 Urine Bacteria Few /hpf (FEW) 07/18/17 08:30 Urine Mucus Not seen /hpf (FEW) 07/18/17 08:30 Ur Random Creatinine 79.6 mg/dL (30.0-125.0) 07/18/17 00:30 Ur Random Microalbumin 5.2 mg/L (1.3-20.0) 07/18/17 00:30 Microalb/Creat Ratio 6.5 mg/g (0-30) 07/18/17 00:30 Urine HCG, Qual Negative (NEGATIVE) 07/17/17 20:00 - Allergies Allergies/Adverse Reactions: Allergies Allergy/AdvReac Type Severity Reaction Status Date / Time acetaminophen Allergy Redness Verified 07/17/17 18:07 amoxicillin Allergy Redness Verified 07/17/17 18:07 Penicillins Allergy Redness Verified 07/17/17 18:07 - Anesthesia Plan Pre-Op Medication Ordered: None - Acknowledgements Anesthesia Type Planned: General Anesthesia Pt an Appropriate Candidate for the Planned Anesthesia: Yes Alternatives and Risks of Anesthesia Discussed w Pt/Guardian: Yes Pt/Guardian Understands and Agrees with Anesthesia Plan: Yes PreAnesthesia Questionnaire Cardiovascular History: Reports: Heart Murmur Respiratory History: Reports: Bronchitis, Recurrent Other Respiratory History: chronic bronchitis Genitourinary History: Reports: UTI, Recurrent, Other (See Below) Other Genitourinary History: kidney infection in February 2017 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 Musculoskeletal History: Reports: Osteoarthritis Other Musculoskeletal History: Scoliosis Neurological History: Reports: Migraines Psychiatric History: Reports: Anxiety Endocrine/Metabolic History: Reports: Diabetes, Type I, Hypothyroidism Oncologic (Cancer) History: Reports: Cervix - Infectious Disease History Infectious Disease History: Reports: Chicken Pox - Past Surgical History HEENT Surgical History: Reports: Tonsillectomy Other HEENT Surgeries/Procedures: [place] teeth removal Cardiovascular Surgical History: Reports: None Respiratory Surgical History: Reports: None Female Surgical History: Reports: Section Endocrine Surgical History: Reports: None Neurological Surgical History: Reports: None Musculoskeletal Surgical History: Reports: Other (See Below) Other Musculoskeletal Surgeries/Procedures:: Back surgery - [place] Rods in back to correct scoliosis Oncologic Surgical History: Reports: Other (See Below) Other Oncologic Surgeries/Procedures: LEEP - SUBSTANCE USE Smoking Status *Q: Current Every Day Smoker Tobacco Use Within Last Twelve Months: Cigarettes Second Hand Smoke Exposure: Yes Recreational Drug Use History: Yes Recreational Drug Type: Reports: Marijuana/Hashish - HOME MEDS Home Medications: Home Meds Levothyroxine [Synthroid] 100 mcg PO ACBREAKFAST 07/17/17 [History] oxyCODONE HCl [Oxycodone HCl] 20 mg PO QID 07/17/17 [History] ALPRAZolam [Xanax] 0.5 mg PO BID 07/18/17 [History] Tresiba 85 units SQ DAILY 07/18/17 [History] - CURRENT (IN HOUSE) MEDS Current Meds: Current Medications Albuterol/Ipratropium (Duoneb 3.0-0.5 Mg/3 Ml) 3 ml NEB Q4H PRN PRN Reason: Shortness Of Breath/wheezing Bisacodyl (Dulcolax) 5 mg PO DAILY PRN PRN Reason: Constipation Dextrose/Water (Dextrose 50% In Water) 50 ml IVPUSH ASDIRECTED PRN PRN Reason: Hypoglycemia Docusate Sodium (Colace) 100 mg PO BID PRN PRN Reason: Constipation Hydralazine HCl (Apresoline) 20 mg IVPUSH Q4H PRN PRN Reason: Hypertension Hydromorphone HCl (Dilaudid) 0.5 mg IVPUSH Q2H PRN PRN Reason: Pain Last Admin: 07/18/17 10:03 Dose: 0.5 mg Promethazine HCl 12.5 mg/ (Sodium Chloride) 50.5 mls @ 100 mls/hr IV Q6H PRN PRN Reason: Nausea/Vomiting Dextrose/Water (Dextrose 5% In Water) 1,000 mls @ 100 mls/hr IV ASDIRECTED [facility] Last Admin: 07/18/17 06:11 Dose: 100 mls/hr Vancomycin HCl 1 gm/ Sodium (Chloride) 250 mls @ 250 mls/hr IV Q12H [facility] Last Admin: 07/18/17 10:12 Dose: 250 mls/hr Insulin Aspart (Novolog) 0 unit SUBCUT QIDACANDBED [facility] PRN Reason: Protocol Last Admin: 07/18/17 08:03 Dose: Not Given Insulin Detemir (Levemir) 13 unit SUBCUT BEDTIME [facility] Levothyroxine Sodium (Levothyroxine) 112 mcg PO ACBREAKFAST [facility] Last Admin: 07/18/17 09:29 Dose: 112 mcg Lisinopril (Prinivil) 10 mg PO DAILY [facility] Last Admin: 07/18/17 09:29 Dose: 10 mg Lorazepam (Ativan) 2 mg IVPUSH Q4H PRN PRN Reason: Seizures Lorazepam (Ativan) 1 mg IV Q6H PRN PRN Reason: Anxiety Last Admin: 07/17/17 23:57 Dose: 1 mg Magnesium Sulfate (Pharmacy To Dose - Magnesium Replacement) 0 dose .XX ASDIRECTED PRN PRN Reason: RX TO WATCH MAG LEVELS Metoprolol Tartrate (Lopressor) 5 mg IVPUSH Q4H PRN PRN Reason: Tachycardia Ondansetron HCl (Zofran) 4 mg IV Q6H PRN PRN Reason: Nausea/Vomiting Oxycodone HCl (Oxycodone) 5 - 10 mg PO Q4H PRN PRN Reason: Pain Last Admin: 07/18/17 09:34 Dose: 10 mg Polyethylene Glycol (Miralax) 17 gm PO DAILY PRN PRN Reason: Constipation Potassium Chloride (Pharmacy To Dose - Potassium Replacement) 0 dose .XX ASDIRECTED PRN PRN Reason: RX TO WATCH K LEVELS Senna/Docusate Sodium (Senna Plus) 1 tab PO BID PRN PRN Reason: Constipation Temazepam (Restoril) 15 mg PO BEDTIME PRN PRN Reason: Sleep Discontinued Medications Hydromorphone HCl (Dilaudid) 1 mg IM ONETIME ONE Stop: 07/17/17 20:07 Last Admin: 07/17/17 20:10 Dose: 1 mg Hydromorphone HCl (Dilaudid) Confirm Administered Dose 0.5 mg .ROUTE .STK-MED ONE Stop: 07/17/17 23:38 Last Admin: 07/17/17 23:56 Dose: Not Given Vancomycin HCl 1 gm/ Sodium (Chloride) 250 mls @ 100 mls/hr IV BID ONE Stop: 07/18/17 00:15 Last Admin: 07/17/17 23:49 Dose: 100 mls/hr Dextrose/Water (Dextrose 5% In Water) Confirm Administered Dose 1,000 mls @ as directed .ROUTE .STK-MED ONE Stop: 07/18/17 06:05 Last Admin: 07/18/17 08:03 Dose: Not Given Insulin Detemir (Levemir) 15 unit SUBCUT ONETIME ONE Stop: 07/17/17 21:57 Last Admin: 07/18/17 02:54 Dose: Not Given Insulin Detemir (Levemir) 15 unit SUBCUT ONETIME ONE Stop: 07/18/17 00:31 Last Admin: 07/18/17 00:24 Dose: Not Given Ketorolac Tromethamine (Toradol) 60 mg IM ONETIME ONE Stop: 07/17/17 20:07 Last Admin: 07/17/17 20:10 Dose: 60 mg Levothyroxine Sodium (Synthroid) 100 mcg PO ACBREAKFAST SB Morphine Sulfate (Morphine) 2 mg IVPUSH Q2H PRN PRN Reason: Pain (moderate 4-6) Ondansetron HCl (Zofran Odt) 4 mg PO Q6H ONE Stop: 07/17/17 21:47 Last Admin: 07/17/17 23:51 Dose: Not Given Oxycodone HCl (Oxycodone) 5 mg PO Q4H PRN PRN Reason: Pain Pneumococcal Polyvalent Vaccine (Pneumovax 23) 0.5 ml IM .ONCE ONE Stop: 07/18/17 03:01
[2017-07-18] MEDS ORDERED: Midazolam 1 MG/ML 2 ML SDV ONE (11:54)
[2017-07-18] MEDS ORDERED: fentaNYL 250 MCG/5 ML SDV ONE (11:54)
[2017-07-18] MEDS ORDERED: Propofol 200 MG/20 ML SDV ONE (11:54)
[2017-07-18] MEDS ORDERED: Lidocaine 1% 4 ML ONE (11:55)
[2017-07-18] MEDS ORDERED: Ondansetron 4 MG/2 ML SDV ONE (11:55)
--- NOTE | 2017-07-18 11:57 | PCM.HP ---
H&P History of Present Illness - General Date of Service: 07/17/17 Admit Problem/Dx: Upper Distal Extremity Cellulitis with Abscess Source of Information: Patient, Family - History of Present Illness Initial Comments - Free Text/Narative: This is a 37 year old female who comes in with a one week history of left upper extremity pain and swelling. She states the pain started in her elbow and she has a history of cellulitis and abscess in that elbow but the pain quickly moved to her hand and left wrist. She noticed increasing swelling and pain to the left wrist. She was seen and placed on Bactrim DS and given a rocephin injection and she does state that after that the swelling in her fingers has decreased. She went to the ER and was found to have an abscess near the left wrist as well as an elevated CRP and ESR. Patient denies any puncture wounds or IV drug use. Denies fevers or chills. Painful to move left fingers or wrist. Left Hand Pain Score (Numeric/FACES): 6 - Related Data Allergies/Adverse Reactions: Allergies Allergy/AdvReac Type Severity Reaction Status Date / Time acetaminophen Allergy Redness Verified 07/17/17 18:07 amoxicillin Allergy Redness Verified 07/17/17 18:07 Penicillins Allergy Redness Verified 07/17/17 18:07 Home Medications: Home Meds Levothyroxine [Synthroid] 100 mcg PO ACBREAKFAST 07/17/17 [History] oxyCODONE HCl [Oxycodone HCl] 20 mg PO QID 07/17/17 [History] ALPRAZolam [Xanax] 0.5 mg PO BID 07/18/17 [History] Tresiba 85 units SQ DAILY 07/18/17 [History] Past Medical History Cardiovascular History: Reports: Heart Murmur Respiratory History: Reports: Bronchitis, Recurrent Other Respiratory History: chronic bronchitis Genitourinary History: Reports: UTI, Recurrent, Other (See Below) Other Genitourinary History: kidney infection in February 2017 [employer] IN[employer] History: Reports: Other OB/BYN History: 7 pregnancies, 4 live children. Musculoskeletal History: Reports: Osteoarthritis Other Musculoskeletal History: Scoliosis Neurological History: Reports: Migraines Psychiatric History: Reports: Anxiety Endocrine/Metabolic History: Reports: Diabetes, Type I, Hypothyroidism Oncologic (Cancer) History: Reports: Cervix - Infectious Disease History Infectious Disease History: Reports: Chicken Pox - Past Surgical History HEENT Surgical History: Reports: Tonsillectomy Other HEENT Surgeries/Procedures: Monument teeth removal Cardiovascular Surgical History: Reports: None Respiratory Surgical History: Reports: None Female Surgical History: Reports: Section Endocrine Surgical History: Reports: None Neurological Surgical History: Reports: None Musculoskeletal Surgical History: Reports: Other (See Below) Other Musculoskeletal Surgeries/Procedures:: Back surgery - [place] Rods in back to correct scoliosis Oncologic Surgical History: Reports: Other (See Below) Other Oncologic Surgeries/Procedures: LEEP Social & Family History - Tobacco Use Smoking Status *Q: Current Every Day Smoker Years of Tobacco use: 15 Packs/Tins Daily: 0.5 Used Tobacco, but Quit: No Second Hand Smoke Exposure: Yes - Caffeine Use Caffeine Use: Reports: Coffee, Energy Drinks, Soda, Tea - Recreational Drug Use Recreational Drug Use: Yes Drug Use in Last 12 Months: Yes Recreational Drug Type: Reports: Marijuana/Hashish Other Recreational Drug Type: states it is medicinal marijuana. H&P Review of Systems - Review of Systems: Review Of Systems: ROS reveals no pertinent complaints other than HPI. Exam - Exam Exam: See Below - Vital Signs Vital Signs: Last Vital Signs Temp 36.2 C 07/18/17 11:11 Pulse 63 07/18/17 11:11 Resp 12 07/18/17 11:11 BP 121/68 07/18/17 11:11 Pulse Ox 100 07/18/17 11:11 Weight: 61.462 kg - Exam General: Alert, Oriented, Cooperative Physical Exam Comments:: LUE: palpable lymph nodes in the axilla, streaking noted from left wrist up to the arm, swelling and redness noted to the left wrist and fingers, pain with palpable abscess to the ulnar side of the left wrist with significant pain, can extend the wrist 10 degrees with minimal pain, tender to palpation throughout the left wrist, able to move all fingers, neurovascularly intact. - Patient Data Lab Results Last 24 hrs: Laboratory Results - last 24 hr 07/18/17 07/18/17 07/18/17 Range/Units 00:03 00:30 00:30 WBC (3.98-10.04) K/mm3 RBC (3.98-5.22) M/mm3 Hgb (11.2-15.7) gm/L Hct (34.1-44.9) % MCV (79.4-94.8) fl MCH (25.6-32.2) pg MCHC (32.2-35.5) g/dl RDW Std Deviation (36.4-46.3) fL Plt Count (182-369) K/mm3 MPV (9.4-12.3) fl Neut % (Auto) (34.0-71.1) % Lymph % (Auto) (19.3-51.7) % [place] % (Auto) (4.7-12.5) % Eos % (Auto) (0.7-5.8) Baso % (Auto) (0.1-1.2) % Neut # (Auto) (1.56-6.13) K/mm3 Lymph # (Auto) (1.18-3.74) K/mm3 [place] # (Auto) (0.24-0.36) K/mm3 Eos # (Auto) (0.04-0.36) K/mm3 Baso # (Auto) (0.01-0.08) K/mm3 Sodium (136-145) mEq/L Potassium (3.5-5.1) mEq/L Chloride (98-107) mEq/L Carbon Dioxide (21-32) mEq/L Anion Gap (5-15) BUN (7-18) mg/dL Creatinine (0.55-1.02) mg/dL Est Cr Clr Drug Dosing mL/min Estimated GFR (MDRD) (>60) mL/min BUN/Creatinine Ratio (14-18) Glucose (74-106) mg/dL POC Glucose 112 H (70-105) mg/dL Calcium (8.5-10.1) mg/dL Magnesium (1.8-2.4) mg/dl Triglycerides (<150) mg/dL Cholesterol (<200) mg/dL LDL Cholesterol Direct (<100) mg/dL HDL Cholesterol (40-59) mg/dL Urine Color (Yellow) Urine Appearance (Clear) Urine pH (5.0-8.0) Ur Specific [place] (1.005-1.030) Urine Protein (Negative) Urine Glucose (UA) (Negative) Urine Ketones (Negative) Urine Occult Blood (Negative) Urine Nitrite (Negative) Urine Bilirubin (Negative) Urine Urobilinogen (0.2-1.0) Ur Leukocyte Esterase (Negative) Urine RBC (0-5) /hpf Urine WBC (0-5) /hpf Ur Epithelial Cells (0-5) /hpf Urine Bacteria (FEW) /hpf Urine Mucus (FEW) /hpf Ur Random Creatinine 79.6 (30.0-125.0) mg/dL Ur Random Microalbumin 4.7 5.2 (1.3-20.0) mg/L Microalb/Creat Ratio 6.5 (0-30) mg/g Urine Opiates Screen (NEGATIVE) Ur Buprenorphine Scrn (NEGATIVE) Ur Oxycodone Screen (NEGATIVE) Urine Methadone Screen (NEGATIVE) Ur Propoxyphene Screen (NEGATIVE) Ur Barbiturates Screen (NEGATIVE) Ur Tricyclics Screen (NEGATIVE) Ur Phencyclidine Scrn (NEGATIVE) Ur Amphetamine Screen (NEGATIVE) U Methamphetamines Scrn (NEGATIVE) U Benzodiazepines Scrn (NEGATIVE) U Cocaine Metab Screen (NEGATIVE) U Marijuana (THC) Screen (NEGATIVE) 07/18/17 07/18/17 07/18/17 Range/Units 05:18 06:04 06:04 WBC 6.89 (3.98-10.04) K/mm3 RBC 4.83 (3.98-5.22) M/mm3 Hgb 13.5 (11.2-15.7) gm/L Hct 39.1 (34.1-44.9) % MCV 81.0 (79.4-94.8) fl MCH 28.0 (25.6-32.2) pg MCHC 34.5 (32.2-35.5) g/dl RDW Std Deviation 41.4 (36.4-46.3) fL Plt Count 257 (182-369) K/mm3 MPV 11.1 (9.4-12.3) fl Neut % (Auto) 43.9 (34.0-71.1) % Lymph % (Auto) 38.2 (19.3-51.7) % [place] % (Auto) 12.9 H (4.7-12.5) % Eos % (Auto) 4.6 (0.7-5.8) Baso % (Auto) 0.3 (0.1-1.2) % Neut # (Auto) 3.02 (1.56-6.13) K/mm3 Lymph # (Auto) 2.63 (1.18-3.74) K/mm3 [place] # (Auto) 0.89 H (0.24-0.36) K/mm3 Eos # (Auto) 0.32 (0.04-0.36) K/mm3 Baso # (Auto) 0.02 (0.01-0.08) K/mm3 Sodium (136-145) mEq/L Potassium (3.5-5.1) mEq/L Chloride (98-107) mEq/L Carbon Dioxide (21-32) mEq/L Anion Gap (5-15) BUN (7-18) mg/dL Creatinine (0.55-1.02) mg/dL Est Cr Clr Drug Dosing mL/min Estimated GFR (MDRD) (>60) mL/min BUN/Creatinine Ratio (14-18) Glucose (74-106) mg/dL POC Glucose 65 L (70-105) mg/dL Calcium (8.5-10.1) mg/dL Magnesium (1.8-2.4) mg/dl Triglycerides 95 (<150) mg/dL Cholesterol 157 (<200) mg/dL LDL Cholesterol Direct 95 (<100) mg/dL HDL Cholesterol 53.0 (40-59) mg/dL Urine Color (Yellow) Urine Appearance (Clear) Urine pH (5.0-8.0) Ur Specific [place] (1.005-1.030) Urine Protein (Negative) Urine Glucose (UA) (Negative) Urine Ketones (Negative) Urine Occult Blood (Negative) Urine Nitrite (Negative) Urine Bilirubin (Negative) Urine Urobilinogen (0.2-1.0) Ur Leukocyte Esterase (Negative) Urine RBC (0-5) /hpf Urine WBC (0-5) /hpf Ur Epithelial Cells (0-5) /hpf Urine Bacteria (FEW) /hpf Urine Mucus (FEW) /hpf Ur Random Creatinine (30.0-125.0) mg/dL Ur Random Microalbumin (1.3-20.0) mg/L Microalb/Creat Ratio (0-30) mg/g Urine Opiates Screen (NEGATIVE) Ur Buprenorphine Scrn (NEGATIVE) Ur Oxycodone Screen (NEGATIVE) Urine Methadone Screen (NEGATIVE) Ur Propoxyphene Screen (NEGATIVE) Ur Barbiturates Screen (NEGATIVE) Ur Tricyclics Screen (NEGATIVE) Ur Phencyclidine Scrn (NEGATIVE) Ur Amphetamine Screen (NEGATIVE) U Methamphetamines Scrn (NEGATIVE) U Benzodiazepines Scrn (NEGATIVE) U Cocaine Metab Screen (NEGATIVE) U Marijuana (THC) Screen (NEGATIVE) 07/18/17 07/18/17 07/18/17 Range/Units 06:04 06:41 07:55 WBC (3.98-10.04) K/mm3 RBC (3.98-5.22) M/mm3 Hgb (11.2-15.7) gm/L Hct (34.1-44.9) % MCV (79.4-94.8) fl MCH (25.6-32.2) pg MCHC (32.2-35.5) g/dl RDW Std Deviation (36.4-46.3) fL Plt Count (182-369) K/mm3 MPV (9.4-12.3) fl Neut % (Auto) (34.0-71.1) % Lymph % (Auto) (19.3-51.7) % [place] % (Auto) (4.7-12.5) % Eos % (Auto) (0.7-5.8) Baso % (Auto) (0.1-1.2) % Neut # (Auto) (1.56-6.13) K/mm3 Lymph # (Auto) (1.18-3.74) K/mm3 [place] # (Auto) (0.24-0.36) K/mm3 Eos # (Auto) (0.04-0.36) K/mm3 Baso # (Auto) (0.01-0.08) K/mm3 Sodium 139 (136-145) mEq/L Potassium 3.8 (3.5-5.1) mEq/L Chloride 102 (98-107) mEq/L Carbon Dioxide 27 (21-32) mEq/L Anion Gap 13.8 (5-15) BUN 12 (7-18) mg/dL Creatinine 0.8 (0.55-1.02) mg/dL Est Cr Clr Drug Dosing 77.63 mL/min Estimated GFR (MDRD) > 60 (>60) mL/min BUN/Creatinine Ratio 15.0 (14-18) Glucose 64 L (74-106) mg/dL POC Glucose 82 98 (70-105) mg/dL Calcium 9.2 (8.5-10.1) mg/dL Magnesium 2.0 (1.8-2.4) mg/dl Triglycerides (<150) mg/dL Cholesterol (<200) mg/dL LDL Cholesterol Direct (<100) mg/dL HDL Cholesterol (40-59) mg/dL Urine Color (Yellow) Urine Appearance (Clear) Urine pH (5.0-8.0) Ur Specific [place] (1.005-1.030) Urine Protein (Negative) Urine Glucose (UA) (Negative) Urine Ketones (Negative) Urine Occult Blood (Negative) Urine Nitrite (Negative) Urine Bilirubin (Negative) Urine Urobilinogen (0.2-1.0) Ur Leukocyte Esterase (Negative) Urine RBC (0-5) /hpf Urine WBC (0-5) /hpf Ur Epithelial Cells (0-5) /hpf Urine Bacteria (FEW) /hpf Urine Mucus (FEW) /hpf Ur Random Creatinine (30.0-125.0) mg/dL Ur Random Microalbumin (1.3-20.0) mg/L Microalb/Creat Ratio (0-30) mg/g Urine Opiates Screen (NEGATIVE) Ur Buprenorphine Scrn (NEGATIVE) Ur Oxycodone Screen (NEGATIVE) Urine Methadone Screen (NEGATIVE) Ur Propoxyphene Screen (NEGATIVE) Ur Barbiturates Screen (NEGATIVE) Ur Tricyclics Screen (NEGATIVE) Ur Phencyclidine Scrn (NEGATIVE) Ur Amphetamine Screen (NEGATIVE) U Methamphetamines Scrn (NEGATIVE) U Benzodiazepines Scrn (NEGATIVE) U Cocaine Metab Screen (NEGATIVE) U Marijuana (THC) Screen (NEGATIVE) 07/18/17 07/18/17 07/18/17 Range/Units 08:30 09:33 11:03 WBC (3.98-10.04) K/mm3 RBC (3.98-5.22) M/mm3 Hgb (11.2-15.7) gm/L Hct (34.1-44.9) % MCV (79.4-94.8) fl MCH (25.6-32.2) pg MCHC (32.2-35.5) g/dl RDW Std Deviation (36.4-46.3) fL Plt Count (182-369) K/mm3 MPV (9.4-12.3) fl Neut % (Auto) (34.0-71.1) % Lymph % (Auto) (19.3-51.7) % [place] % (Auto) (4.7-12.5) % Eos % (Auto) (0.7-5.8) Baso % (Auto) (0.1-1.2) % Neut # (Auto) (1.56-6.13) K/mm3 Lymph # (Auto) (1.18-3.74) K/mm3 [place] # (Auto) (0.24-0.36) K/mm3 Eos # (Auto) (0.04-0.36) K/mm3 Baso # (Auto) (0.01-0.08) K/mm3 Sodium (136-145) mEq/L Potassium (3.5-5.1) mEq/L Chloride (98-107) mEq/L Carbon Dioxide (21-32) mEq/L Anion Gap (5-15) BUN (7-18) mg/dL Creatinine (0.55-1.02) mg/dL Est Cr Clr Drug Dosing mL/min Estimated GFR (MDRD) (>60) mL/min BUN/Creatinine Ratio (14-18) Glucose (74-106) mg/dL POC Glucose 111 H (70-105) mg/dL Calcium (8.5-10.1) mg/dL Magnesium (1.8-2.4) mg/dl Triglycerides (<150) mg/dL Cholesterol (<200) mg/dL LDL Cholesterol Direct (<100) mg/dL HDL Cholesterol (40-59) mg/dL Urine Color Yellow (Yellow) Urine Appearance Clear (Clear) Urine pH 8.0 (5.0-8.0) Ur Specific [place] 1.020 (1.005-1.030) Urine Protein Negative (Negative) Urine Glucose (UA) Trace H (Negative) Urine Ketones Negative (Negative) Urine Occult Blood Negative (Negative) Urine Nitrite Negative (Negative) Urine Bilirubin Negative (Negative) Urine Urobilinogen 0.2 (0.2-1.0) Ur Leukocyte Esterase Negative (Negative) Urine RBC 0-5 (0-5) /hpf Urine WBC 0-5 (0-5) /hpf Ur Epithelial Cells 0-5 (0-5) /hpf Urine Bacteria Few (FEW) /hpf Urine Mucus Not seen (FEW) /hpf Ur Random Creatinine (30.0-125.0) mg/dL Ur Random Microalbumin (1.3-20.0) mg/L Microalb/Creat Ratio (0-30) mg/g Urine Opiates Screen Presumptive positive H (NEGATIVE) Ur Buprenorphine Scrn Negative (NEGATIVE) Ur Oxycodone Screen Negative (NEGATIVE) Urine Methadone Screen Negative (NEGATIVE) Ur Propoxyphene Screen Negative (NEGATIVE) Ur Barbiturates Screen Presumptive positive H (NEGATIVE) Ur Tricyclics Screen Negative (NEGATIVE) Ur Phencyclidine Scrn Negative (NEGATIVE) Ur Amphetamine Screen Negative (NEGATIVE) U Methamphetamines Scrn Negative (NEGATIVE) U Benzodiazepines Scrn Presumptive positive H (NEGATIVE) U Cocaine Metab Screen Negative (NEGATIVE) U Marijuana (THC) Screen Presumptive positive H (NEGATIVE) Result Diagrams: 07/18/17 06:04 07/18/17 06:04 *Q Meaningful Use (ADM) - VTE *Q VTE Criteria *Q: - Stroke *Q Stroke Criteria *Q: - AMI *Q AMI Criteria *Q: Problem List Initiated/Reviewed/Updated: Yes Orders Last 24hrs: Active Orders 24 hr Category Date Time Status Accu Check [Blood Glucose Check, Bedside] [RC] Q2HR Care 07/18/17 11:00 Active Antiembolic Devices [RC] PER UNIT ROUTINE Care 07/18/17 09:14 Active Communication Order [RC] ASDIRECTED Care 07/18/17 09:54 Active Up ad Kae [RC] ASDIRECTED Care 07/18/17 09:18 Active Verify Patient Consent Obtain [RC] ASDIRECTED Care 07/18/17 09:53 Active Clear Liquid Diet [DIET] Diet 07/18/17 Breakfast Active OR PCXR-No Charge-PICC/Central [CR] Routine Exams 07/18/17 09:54 Ordered METH-RESIST S.AUR,MRSA BY PCR [MOLEC] Routine Lab 07/18/17 09:52 Uncollected Dextrose 5% in Water 1,000 ml Med 07/18/17 06:15 Active IV ASDIRECTED HYDROmorphone [Dilaudid] Med 07/17/17 23:18 Active 0.5 mg IVPUSH Q2H PRN Levothyroxine Med 07/18/17 09:15 Active 112 mcg PO ACBREAKFAST Vancomycin [Vancocin] 1 gm Med 07/18/17 09:00 Active Sodium Chloride 0.9% [Normal Saline] 250 ml IV Q12H oxyCODONE Med 07/17/17 23:23 Active 5 - 10 mg PO Q4H PRN SCD [Sequential Compression Device] [OM.PC] Routine Oth 07/18/17 09:13 Ordered Medication Orders Albuterol/Ipratropium (Duoneb 3.0-0.5 Mg/3 Ml) 3 ml NEB Q4H PRN PRN Reason: Shortness Of Breath/wheezing Bisacodyl (Dulcolax) 5 mg PO DAILY PRN PRN Reason: Constipation Dextrose/Water (Dextrose 50% In Water) 50 ml IVPUSH ASDIRECTED PRN PRN Reason: Hypoglycemia Docusate Sodium (Colace) 100 mg PO BID PRN PRN Reason: Constipation Hydralazine HCl (Apresoline) 20 mg IVPUSH Q4H PRN PRN Reason: Hypertension Hydromorphone HCl (Dilaudid) 0.5 mg IVPUSH Q2H PRN PRN Reason: Pain Last Admin: 07/18/17 10:03 Dose: 0.5 mg Admin: 07/18/17 06:17 Dose: 0.5 mg Admin: 07/18/17 03:57 Dose: 0.5 mg Admin: 07/17/17 23:42 Dose: 0.5 mg Promethazine HCl 12.5 mg/ (Sodium Chloride) 50.5 mls @ 100 mls/hr IV Q6H PRN PRN Reason: Nausea/Vomiting Dextrose/Water (Dextrose 5% In Water) 1,000 mls @ 100 mls/hr IV ASDIRECTED [facility] Last Admin: 07/18/17 06:11 Dose: 100 mls/hr Vancomycin HCl 1 gm/ Sodium (Chloride) 250 mls @ 250 mls/hr IV Q12H [facility] Last Admin: 07/18/17 10:12 Dose: 250 mls/hr Insulin Aspart (Novolog) 0 unit SUBCUT QIDACANDBED [facility] PRN Reason: Protocol Last Admin: 07/18/17 08:03 Dose: Not Given Admin: 07/18/17 00:05 Dose: Not Given Insulin Detemir (Levemir) 13 unit SUBCUT BEDTIME [facility] Levothyroxine Sodium (Levothyroxine) 112 mcg PO ACBREAKFAST [facility] Last Admin: 07/18/17 09:29 Dose: 112 mcg Lisinopril (Prinivil) 10 mg PO DAILY SB Last Admin: 07/18/17 09:29 Dose: 10 mg Lorazepam (Ativan) 2 mg IVPUSH Q4H PRN PRN Reason: Seizures Lorazepam (Ativan) 1 mg IV Q6H PRN PRN Reason: Anxiety Last Admin: 07/17/17 23:57 Dose: 1 mg Magnesium Sulfate (Pharmacy To Dose - Magnesium Replacement) 0 dose .XX ASDIRECTED PRN PRN Reason: RX TO WATCH MAG LEVELS Metoprolol Tartrate (Lopressor) 5 mg IVPUSH Q4H PRN PRN Reason: Tachycardia Ondansetron HCl (Zofran) 4 mg IV Q6H PRN PRN Reason: Nausea/Vomiting Oxycodone HCl (Oxycodone) 5 - 10 mg PO Q4H PRN PRN Reason: Pain Last Admin: 07/18/17 09:34 Dose: 10 mg Admin: 07/18/17 00:20 Dose: 10 mg Polyethylene Glycol (Miralax) 17 gm PO DAILY PRN PRN Reason: Constipation Potassium Chloride (Pharmacy To Dose - Potassium Replacement) 0 dose .XX ASDIRECTED PRN PRN Reason: RX TO WATCH K LEVELS Senna/Docusate Sodium (Senna Plus) 1 tab PO BID PRN PRN Reason: Constipation Temazepam (Restoril) 15 mg PO BEDTIME PRN PRN Reason: Sleep Assessment/Plan Comment:: A: left wrist abscess with cellulitis P: AT this time I discussed that we should try to drain the abscess and get a culture and make sure its superficial only. risks, benefits, complications, and alternatives were discussed and this was performed. The patient will be admitted and begin IV vancomycin at this time. We will reevaluate in the morning and will see if it improves but will plan on a formal irrigation and debridement if no significant improvement. Medicine will be consulted for all medical management.
[2017-07-18] MEDS ORDERED: Succinylcholine 200 MG/10 ML MDV ONE (12:17)
[2017-07-18] MEDS ORDERED: ceFAZolin 1 GM Vial ONE (13:10)
[2017-07-18] MEDS ORDERED: Lactated Ringers 1,000 ML ONE (14:02)
--- NOTE | 2017-07-18 14:15 | PCM.POSTAN ---
POST ANESTHESIA ASSESSMENT - MENTAL STATUS Mental Status: Alert, Oriented - VITAL SIGNS Pulse Rate: 92 SaO2: 99 Resp Rate: 20 Blood Pressure: 128/80 Temperature: 36.8 C - RESPIRATORY Respiratory Status: Respiratory Rate WNL, Airway Patent, O2 Saturation Stable, Supplemental Oxygen - CARDIOVASCULAR CV Status: Pulse Rate WNL, Blood Pressure Stable - GASTROINTESTINAL GI Status: No Symptoms - PAIN Pain Score: 0 - POST OP HYDRATION Hydration Status: Adequate & Stable
[2017-07-18] MEDS ORDERED: Meperidine PF 50 MG/ML Syringe IVPUSH PRN (14:22)
[2017-07-18] MEDS ORDERED: Ondansetron 4 MG/2 ML SDV IVPUSH PRN (14:22)
[2017-07-18] MEDS: fentaNYL 100 MCG/2 ML SDV IVPUSH PRN ×2 (14:33→14:51)
--- NOTE | 2017-07-18 15:33 | CR ---
Chest: Frontal view of the chest was obtained centered to the left side. Study obtained at time 1:38 PM Comparison: No previous study. Right-sided PICC line is seen which is ascending off the superior edge of the film into the jugular vein. Scoliosis rods are seen. Endotracheal tube is seen with tip lying at the level of the clavicles. Visualized lungs are clear. Impression: 1. Right-sided PICC line ascending into the right jugular vein. 2. Other incidental findings. Diagnostic code #3
--- NOTE | 2017-07-18 15:35 | CR ---
Chest: Frontal view of the chest was obtained at time 1:41 PM Comparison: Previous study performed on the same day (1:38 PM) Right-sided PICC line is seen. Tip has been repositioned and now lies within the brachiocephalic vein. Lung are clear. Tip of endotracheal tube is stable at the clavicle level. Spinal fixation rods are seen. Impression: 1. Repositioning of PICC line from prior exam. Tip lies within the brachiocephalic vein on the right side. 2. Stable position of endotracheal tube. Diagnostic code #2
--- NOTE | 2017-07-18 15:36 | CR ---
Chest: Frontal view of the chest was obtained at time 1:42 PM Comparison: Previous chest x-ray performed on the same day (1:41 PM) PICC line has been advanced and now lies within the right atrium. Lungs are clear. Scoliosis rods are noted. Endotracheal tube is stable in position at the level of the clavicles. Impression: 1. Tip of PICC line advanced into the right atria. 2. Other portions of the chest are stable. Diagnostic code #3
--- NOTE | 2017-07-18 15:48 | CR ---
Chest: Frontal view of the chest was obtained at time 1:45 PM Comparison: Previous chest x-ray performed on the same day (1:44 PM) Tip of PICC line continues to be withdrawn. Tip now lies within the right brachiocephalic and superior vena cava junction. Lungs are clear. Scoliosis rods are noted. Tip of endotracheal tube remains at the level of the clavicles. Impression: 1. Tip of PICC line now lies at the right brachiocephalic and superior vena cava junction. 2. Other portions of the chest are stable. Diagnostic code #2
--- NOTE | 2017-07-18 15:48 | CR ---
Chest: Frontal view of the chest was obtained at time 1:44 PM Comparison: Previous chest x-ray performed earlier on the same day (1:42 PM) Tip of PICC line as been withdrawn. Tip now lies at the right atrial and superior vena cava junction. Endotracheal tube remains stable with tip at the level of the clavicles. Heart size and mediastinum are normal. Scoliosis rods are again seen. Impression: 1. Tip of PICC line now at the right atrium and superior vena cava junction. 2. Other portions of the chest remain stable. Diagnostic code #2
--- NOTE | 2017-07-18 15:48 | CR ---
Addendum: The description of location of PICC line has the word radial which occurs within the body of the report and is a voice recognition error. This should be replaced by the word "right". --- Addendum1 above dictated on [08/20/2017 12:46] by [Chevy Hernandez Hilton J.] --- --- Addendum1 above signed on [08/20/2017 12:47] by [Chevy Hernandez Hilton J.] --- --- Original report below dictated on [07/18/2017 15:46] by [Chevy Hernandez Hilton J.] --- --- Original report below signed on [07/18/2017 15:46] by [Chevy Hernandez, Ascencion Martinez] --- Chest: Frontal view of the chest was obtained. Study obtained at time 1:46 PM Comparison: Previous study performed earlier on same day (1:45 PM) Tip of PICC line is been advanced. Tip now lies at the radial atrial and superior vena cava junction. Lungs are clear. Heart size and mediastinum are stable. Tip of endotracheal tube remains at the level of the clavicles. Scoliosis rods are stable. Impression: 1. Tip of PICC line at the right atrial and superior vena cava junction. 2. Other stable findings as described above. Diagnostic code #2 --- Addendum1 signed ---
[2017-07-18] MEDS: LORazepam 2 MG/ML MDV IV PRN ×2 (18:00→23:59)
[2017-07-18] MEDS: Insulin Detemir 100 Units/ML 3 ML Pen SUBCUT SCH (21:30)
[2017-07-19] MEDS: HYDROmorphone 0.5 MG/0.5 ML Syringe IVPUSH PRN ×9 (02:02→22:03)
[2017-07-19] MEDS: oxyCODONE 5 MG Tab PO PRN ×4 (03:04→19:38)
[2017-07-19] MEDS: Ibuprofen 600 MG Tab PO PRN (03:05)
[2017-07-19] MEDS: Levothyroxine 112 MCG Tab PO SCH (05:28)
[2017-07-19] MEDS: Insulin Aspart 100 Units/ML 3 ML Pen SUBCUT SCH ×4 (06:54→22:05)
--- NOTE | 2017-07-19 08:57 | CR ---
Left wrist: Two views of the left wrist were obtained. Soft tissue swelling is identified. No fracture, dislocation or other bony abnormality is seen. Impression: 1. Diffuse soft tissue swelling. 2. No bony abnormality is identified on two-view left wrist exam. Diagnostic code #2
[2017-07-19] MEDS: Lisinopril 10 MG Tab PO SCH (09:35)
--- NOTE | 2017-07-19 09:53 | PCM.PN ---
- General Info Date of Service: 07/19/17 Admission Dx/Problem (Free Text): Upper Distal Extremity Cellulitis with Abscess S/P I&D of Lt hand yesterday with Dr. Melgar. States that pain is not under good control and in fact is "out of control", however during our discussion today she is lethargic, unable to keep her eyes open for our discussion. Continuous pulse ox monitor is on with sats 99-98% on RA. She tells team today on rounding she is "with pain management" and she is "getting less here than I am with pain management, isn't there something else or more I can get", Hospitalist team was not aware she was with pain management. When asked who she is seeing for pain management she states "Ana Cristina someone in [place], I don't know her last name", whom "I only saw her once". When asked if she also follows with Ana Cristina for her diabetes and thyroid disease she states she did not see her for that and that her "other doctor retired" who was previously "Dr. Toro in [place]". She was found in the bathroom last night per nursing taking pills from her purse , reportedly stated they were "xanax" and "vagifem". Stated her is in prison. Other family members are not supportive as "they all use drugs". Children are with her mother and safe. Glucose improved today, sugars 100-200, labs stable. VSS. Cultures pending. She does admit today that she has not taken her thyroid medication regularly x 1 month. Functional Status: Reports: Pain Controlled, Tolerating Diet, Ambulating, Urinating - Review of Systems General: Reports: Fever (low grade this am) HEENT: Reports: No Symptoms Pulmonary: Reports: No Symptoms Cardiovascular: Reports: No Symptoms Gastrointestinal: Reports: No Symptoms Genitourinary: Reports: No Symptoms Musculoskeletal: Reports: Arm Pain, Hand Pain Skin: Reports: No Symptoms Neurological: Reports: No Symptoms Psychiatric: Reports: No Symptoms, Anxiety - Patient Data Vitals - Most Recent: Last Vital Signs Temp 99.5 F 07/19/17 07:47 Pulse 95 07/19/17 07:47 Resp 14 07/19/17 07:47 BP 125/67 07/19/17 09:35 Pulse Ox 96 07/19/17 07:47 Weight - Most Recent: 138 lb 3.2 oz I&O - Last 24 Hours: Intake & Output 07/18/17 07/19/17 07/19/17 22:59 06:59 14:59 Intake Total 1650 850 Output Total 300 600 Balance 1350 250 Lab Results Last 24 Hours: Laboratory Results - last 24 hr 07/18/17 07/18/17 07/18/17 Range/Units 11:03 11:29 11:51 WBC (3.98-10.04) K/mm3 RBC (3.98-5.22) M/mm3 Hgb (11.2-15.7) gm/L Hct (34.1-44.9) % MCV (79.4-94.8) fl MCH (25.6-32.2) pg MCHC (32.2-35.5) g/dl RDW Std Deviation (36.4-46.3) fL Plt Count (182-369) K/mm3 MPV (9.4-12.3) fl Neut % (Auto) (34.0-71.1) % Lymph % (Auto) (19.3-51.7) % Miller % (Auto) (4.7-12.5) % Eos % (Auto) (0.7-5.8) Baso % (Auto) (0.1-1.2) % Neut # (Auto) (1.56-6.13) K/mm3 Lymph # (Auto) (1.18-3.74) K/mm3 Miller # (Auto) (0.24-0.36) K/mm3 Eos # (Auto) (0.04-0.36) K/mm3 Baso # (Auto) (0.01-0.08) K/mm3 Sodium (136-145) mEq/L Potassium (3.5-5.1) mEq/L Chloride (98-107) mEq/L Carbon Dioxide (21-32) mEq/L Anion Gap (5-15) BUN (7-18) mg/dL Creatinine (0.55-1.02) mg/dL Est Cr Clr Drug Dosing mL/min Estimated GFR (MDRD) (>60) mL/min BUN/Creatinine Ratio (14-18) Glucose (74-106) mg/dL POC Glucose 167 H (70-105) mg/dL Calcium (8.5-10.1) mg/dL Magnesium (1.8-2.4) mg/dl C-Reactive Protein (<1.0) mg/dL Urine Opiates Screen Presumptive positive H (NEGATIVE) Ur Buprenorphine Scrn Negative (NEGATIVE) Ur Oxycodone Screen Negative (NEGATIVE) Urine Methadone Screen Negative (NEGATIVE) Ur Propoxyphene Screen Negative (NEGATIVE) Ur Barbiturates Screen Presumptive positive H (NEGATIVE) Ur Tricyclics Screen Negative (NEGATIVE) Ur Phencyclidine Scrn Negative (NEGATIVE) Ur Amphetamine Screen Negative (NEGATIVE) U Methamphetamines Scrn Negative (NEGATIVE) U Benzodiazepines Scrn Presumptive positive H (NEGATIVE) U Cocaine Metab Screen Negative (NEGATIVE) U Marijuana (THC) Screen Presumptive positive H (NEGATIVE) MRSA (PCR) Negative 07/18/17 07/18/17 07/18/17 Range/Units 14:16 18:15 20:37 WBC (3.98-10.04) K/mm3 RBC (3.98-5.22) M/mm3 Hgb (11.2-15.7) gm/L Hct (34.1-44.9) % MCV (79.4-94.8) fl MCH (25.6-32.2) pg MCHC (32.2-35.5) g/dl RDW Std Deviation (36.4-46.3) fL Plt Count (182-369) K/mm3 MPV (9.4-12.3) fl Neut % (Auto) (34.0-71.1) % Lymph % (Auto) (19.3-51.7) % Miller % (Auto) (4.7-12.5) % Eos % (Auto) (0.7-5.8) Baso % (Auto) (0.1-1.2) % Neut # (Auto) (1.56-6.13) K/mm3 Lymph # (Auto) (1.18-3.74) K/mm3 Miller # (Auto) (0.24-0.36) K/mm3 Eos # (Auto) (0.04-0.36) K/mm3 Baso # (Auto) (0.01-0.08) K/mm3 Sodium (136-145) mEq/L Potassium (3.5-5.1) mEq/L Chloride (98-107) mEq/L Carbon Dioxide (21-32) mEq/L Anion Gap (5-15) BUN (7-18) mg/dL Creatinine (0.55-1.02) mg/dL Est Cr Clr Drug Dosing mL/min Estimated GFR (MDRD) (>60) mL/min BUN/Creatinine Ratio (14-18) Glucose (74-106) mg/dL POC Glucose 116 H 152 H 131 H (70-105) mg/dL Calcium (8.5-10.1) mg/dL Magnesium (1.8-2.4) mg/dl C-Reactive Protein (<1.0) mg/dL Urine Opiates Screen (NEGATIVE) Ur Buprenorphine Scrn (NEGATIVE) Ur Oxycodone Screen (NEGATIVE) Urine Methadone Screen (NEGATIVE) Ur Propoxyphene Screen (NEGATIVE) Ur Barbiturates Screen (NEGATIVE) Ur Tricyclics Screen (NEGATIVE) Ur Phencyclidine Scrn (NEGATIVE) Ur Amphetamine Screen (NEGATIVE) U Methamphetamines Scrn (NEGATIVE) U Benzodiazepines Scrn (NEGATIVE) U Cocaine Metab Screen (NEGATIVE) U Marijuana (THC) Screen (NEGATIVE) MRSA (PCR) 07/19/17 07/19/17 07/19/17 Range/Units 05:25 05:25 06:44 WBC 6.48 (3.98-10.04) K/mm3 RBC 4.58 (3.98-5.22) M/mm3 Hgb 12.6 (11.2-15.7) gm/L Hct 37.8 (34.1-44.9) % MCV 82.5 (79.4-94.8) fl MCH 27.5 (25.6-32.2) pg MCHC 33.3 (32.2-35.5) g/dl RDW Std Deviation 41.7 (36.4-46.3) fL Plt Count 252 (182-369) K/mm3 MPV 10.6 (9.4-12.3) fl Neut % (Auto) 54.5 (34.0-71.1) % Lymph % (Auto) 29.0 (19.3-51.7) % Miller % (Auto) 12.5 (4.7-12.5) % Eos % (Auto) 3.5 (0.7-5.8) Baso % (Auto) 0.3 (0.1-1.2) % Neut # (Auto) 3.53 (1.56-6.13) K/mm3 Lymph # (Auto) 1.88 (1.18-3.74) K/mm3 Miller # (Auto) 0.81 H (0.24-0.36) K/mm3 Eos # (Auto) 0.23 (0.04-0.36) K/mm3 Baso # (Auto) 0.02 (0.01-0.08) K/mm3 Sodium 139 (136-145) mEq/L Potassium 3.8 (3.5-5.1) mEq/L Chloride 104 (98-107) mEq/L Carbon Dioxide 29 (21-32) mEq/L Anion Gap 9.8 (5-15) BUN 7 (7-18) mg/dL Creatinine 0.6 (0.55-1.02) mg/dL Est Cr Clr Drug Dosing 103.50 mL/min Estimated GFR (MDRD) > 60 (>60) mL/min BUN/Creatinine Ratio 11.7 L (14-18) Glucose 108 H (74-106) mg/dL POC Glucose 205 H (70-105) mg/dL Calcium 8.3 L (8.5-10.1) mg/dL Magnesium 1.8 (1.8-2.4) mg/dl C-Reactive Protein 4.5 H* (<1.0) mg/dL Urine Opiates Screen (NEGATIVE) Ur Buprenorphine Scrn (NEGATIVE) Ur Oxycodone Screen (NEGATIVE) Urine Methadone Screen (NEGATIVE) Ur Propoxyphene Screen (NEGATIVE) Ur Barbiturates Screen (NEGATIVE) Ur Tricyclics Screen (NEGATIVE) Ur Phencyclidine Scrn (NEGATIVE) Ur Amphetamine Screen (NEGATIVE) U Methamphetamines Scrn (NEGATIVE) U Benzodiazepines Scrn (NEGATIVE) U Cocaine Metab Screen (NEGATIVE) U Marijuana (THC) Screen (NEGATIVE) MRSA (PCR) Vince Results Last 24 Hours: Microbiology 07/18/17 13:00 Gram Stain - Final Wrist, Left Med Orders - Current: Current Medications Albuterol/Ipratropium (Duoneb 3.0-0.5 Mg/3 Ml) 3 ml NEB Q4H PRN PRN Reason: Shortness Of Breath/wheezing Bisacodyl (Dulcolax) 5 mg PO DAILY PRN PRN Reason: Constipation Dextrose/Water (Dextrose 50% In Water) 50 ml IVPUSH ASDIRECTED PRN PRN Reason: Hypoglycemia Diphenhydramine HCl (Benadryl) 25 mg IVPUSH Q6H PRN PRN Reason: Pruritis Docusate Sodium (Colace) 100 mg PO BID PRN PRN Reason: Constipation Hydralazine HCl (Apresoline) 20 mg IVPUSH Q4H PRN PRN Reason: Hypertension Hydromorphone HCl (Dilaudid) 0.5 mg IVPUSH Q2H PRN PRN Reason: Pain Last Admin: 07/19/17 09:40 Dose: 0.5 mg Promethazine HCl 12.5 mg/ (Sodium Chloride) 50.5 mls @ 100 mls/hr IV Q6H PRN PRN Reason: Nausea/Vomiting Vancomycin HCl 1 gm/ Sodium (Chloride) 250 mls @ 250 mls/hr IV Q12H [facility] Last Admin: 07/19/17 09:38 Dose: 250 mls/hr Ibuprofen (Motrin) 600 mg PO Q6H PRN PRN Reason: Pain Last Admin: 07/19/17 03:05 Dose: 600 mg Insulin Aspart (Novolog) 0 unit SUBCUT QIDACANDBED [facility] PRN Reason: Protocol Last Admin: 07/19/17 06:54 Dose: 4 units Insulin Detemir (Levemir) 13 unit SUBCUT BEDTIME [facility] Last Admin: 07/18/17 21:30 Dose: 13 units Levothyroxine Sodium (Levothyroxine) 112 mcg PO ACBREAKFAST [facility] Last Admin: 07/19/17 05:28 Dose: 112 mcg Lisinopril (Prinivil) 10 mg PO DAILY [facility] Last Admin: 07/19/17 09:35 Dose: 10 mg Lorazepam (Ativan) 2 mg IVPUSH Q4H PRN PRN Reason: Seizures Lorazepam (Ativan) 1 mg IV Q6H PRN PRN Reason: Anxiety Last Admin: 07/18/17 23:59 Dose: 1 mg Magnesium Sulfate (Pharmacy To Dose - Magnesium Replacement) 0 dose .XX ASDIRECTED PRN PRN Reason: RX TO WATCH MAG LEVELS Metoprolol Tartrate (Lopressor) 5 mg IVPUSH Q4H PRN PRN Reason: Tachycardia Ondansetron HCl (Zofran) 4 mg IV Q6H PRN PRN Reason: Nausea/Vomiting Oxycodone HCl (Oxycodone) 5 - 10 mg PO Q4H PRN PRN Reason: Pain Last Admin: 07/19/17 07:04 Dose: 10 mg Polyethylene Glycol (Miralax) 17 gm PO DAILY PRN PRN Reason: Constipation Potassium Chloride (Pharmacy To Dose - Potassium Replacement) 0 dose .XX ASDIRECTED PRN PRN Reason: RX TO WATCH K LEVELS Senna/Docusate Sodium (Senna Plus) 1 tab PO BID PRN PRN Reason: Constipation Temazepam (Restoril) 15 mg PO BEDTIME PRN PRN Reason: Sleep Last Admin: 07/19/17 02:02 Dose: 15 mg Discontinued Medications Cefazolin Sodium (Ancef) Confirm Administered Dose 2 gm .ROUTE .STK-MED ONE Stop: 07/18/17 13:11 Fentanyl (Sublimaze) Confirm Administered Dose 250 mcg .ROUTE .STK-MED ONE Stop: 07/18/17 11:55 Fentanyl (Sublimaze) 50 mcg IVPUSH Q5M PRN PRN Reason: Pain Stop: 07/18/17 14:38 Last Admin: 07/18/17 14:51 Dose: 50 mcg Hydromorphone HCl (Dilaudid) 1 mg IM ONETIME ONE Stop: 07/17/17 20:07 Last Admin: 07/17/17 20:10 Dose: 1 mg Hydromorphone HCl (Dilaudid) Confirm Administered Dose 0.5 mg .ROUTE .STK-MED ONE Stop: 07/17/17 23:38 Last Admin: 07/17/17 23:56 Dose: Not Given Hydromorphone HCl (Dilaudid) 0.5 mg IVPUSH Q15M PRN PRN Reason: Pain (severe 7-10) Stop: 07/18/17 14:38 Last Admin: 07/18/17 14:55 Dose: 0.5 mg Vancomycin HCl 1 gm/ Sodium (Chloride) 250 mls @ 100 mls/hr IV BID ONE Stop: 07/18/17 00:15 Last Admin: 07/17/17 23:49 Dose: 100 mls/hr Dextrose/Water (Dextrose 5% In Water) 1,000 mls @ 100 mls/hr IV ASDIRECTED [facility] Last Admin: 07/18/17 06:11 Dose: 100 mls/hr Dextrose/Water (Dextrose 5% In Water) Confirm Administered Dose 1,000 mls @ as directed .ROUTE .STK-MED ONE Stop: 07/18/17 06:05 Last Admin: 07/18/17 08:03 Dose: Not Given Lidocaine HCl (Xylocaine-Mpf 1%) Confirm Administered Dose 4 mls @ as directed .ROUTE .STK-MED ONE Stop: 07/18/17 11:56 Lactated Ringer's (Ringers, Lactated) Confirm Administered Dose 1,000 mls @ as directed .ROUTE .STK-MED ONE Stop: 07/18/17 14:03 Insulin Detemir (Levemir) 15 unit SUBCUT ONETIME ONE Stop: 07/17/17 21:57 Last Admin: 07/18/17 02:54 Dose: Not Given Insulin Detemir (Levemir) 15 unit SUBCUT ONETIME ONE Stop: 07/18/17 00:31 Last Admin: 07/18/17 00:24 Dose: Not Given Ketorolac Tromethamine (Toradol) 60 mg IM ONETIME ONE Stop: 07/17/17 20:07 Last Admin: 07/17/17 20:10 Dose: 60 mg Levothyroxine Sodium (Synthroid) 100 mcg PO ACBREAKFAST [facility] Meperidine HCl (Demerol) 12.5 mg IVPUSH ONETIME PRN PRN Reason: Shivering Stop: 07/18/17 16:00 Midazolam HCl (Versed 1 Mg/Ml) Confirm Administered Dose 2 mg .ROUTE .STK-MED ONE Stop: 07/18/17 11:55 Morphine Sulfate (Morphine) 2 mg IVPUSH Q2H PRN PRN Reason: Pain (moderate 4-6) Ondansetron HCl (Zofran Odt) 4 mg PO Q6H ONE Stop: 07/17/17 21:47 Last Admin: 07/17/17 23:51 Dose: Not Given Ondansetron HCl (Zofran) Confirm Administered Dose 4 mg .ROUTE .STK-MED ONE Stop: 07/18/17 11:56 Ondansetron HCl (Zofran) 4 mg IVPUSH ONETIME PRN PRN Reason: Nausea/Vomiting Stop: 07/18/17 16:00 Oxycodone HCl (Oxycodone) 5 mg PO Q4H PRN PRN Reason: Pain Pneumococcal Polyvalent Vaccine (Pneumovax 23) 0.5 ml IM .ONCE ONE Stop: 07/18/17 03:01 Propofol (Diprivan 20 Ml) Confirm Administered Dose 200 mg .ROUTE .STK-MED ONE Stop: 07/18/17 11:55 Succinylcholine Chloride (Quelicin) Confirm Administered Dose 200 mg .ROUTE .STK -MED ONE Stop: 07/18/17 12:18 - Exam Quality Assessment: DVT Prophylaxis General: Alert, Oriented, No Acute Distress HEENT: Pupils Equal, EOMI, Mucous Membr. Moist/[place] Neck: Supple Lungs: Clear to Auscultation, Normal Respiratory Effort, Decreased Breath Sounds (bases) Cardiovascular: Regular Rate, Regular Rhythm GI/Abdominal Exam: Normal Bowel Sounds, Soft, Non-Tender, Other (round abdomen) (Female) Exam: Deferred Extremities: Normal Capillary Refill, Other (dressing CDI to lt arm/hand; CMS intact distally to lt hand) Wound/Incisions: Dressing Dry and Intact Neurological: No New Focal Deficit Psy/Mental Status: Alert, Normal Affect, Normal Mood, Anxious - Problem List & Annotations (1) Diabetes SNOMED Code(s): 92969459 Code(s): E11.9 - TYPE 2 DIABETES MELLITUS WITHOUT COMPLICATIONS Status: Chronic Priority: High Current Visit: Yes Qualifiers: Diabetes mellitus type: type 2 Diabetes mellitus complication status: with skin complications Diabetes mellitus complication detail: with other skin complication (2) Abscess SNOMED Code(s): 421992735 Code(s): L02.91 - CUTANEOUS ABSCESS, UNSPECIFIED Status: Acute Priority: High Current Visit: Yes (3) Ecchymosis of wrist SNOMED Code(s): 33572795 Code(s): S60.219A - CONTUSION OF UNSPECIFIED WRIST, INITIAL ENCOUNTER Status: Acute Priority: High Current Visit: Yes - Problem List Review Problem List Initiated/Reviewed/Updated: Yes - My Orders Last 24 Hours: My Active Orders 07/18/17 09:15 Levothyroxine 112 mcg PO ACBREAKFAST 07/18/17 11:00 Accu Check [Blood Glucose Check, Bedside] [RC] QIDACANDBED 07/20/17 05:00 BASIC METABOLIC PANEL,BMP [CHEM] DAILY C-REACTIVE PROTEIN [CHEM] DAILY CBC WITH AUTO DIFF [HEME] DAILY 07/21/17 05:00 BASIC METABOLIC PANEL,BMP [CHEM] DAILY C-REACTIVE PROTEIN [CHEM] DAILY CBC WITH AUTO DIFF [HEME] DAILY 07/22/17 05:00 BASIC METABOLIC PANEL,BMP [CHEM] DAILY C-REACTIVE PROTEIN [CHEM] DAILY CBC WITH AUTO DIFF [HEME] DAILY 07/23/17 05:00 BASIC METABOLIC PANEL,BMP [CHEM] DAILY C-REACTIVE PROTEIN [CHEM] DAILY CBC WITH AUTO DIFF [HEME] DAILY - Plan Plan:: I/P: Cellulitis with abscess to left hand/wrist- s/p I&D POD #1 -Orthopedics following -Cultures pending, cont Vanco BID via PICC -Dressing CDI, CMS + distally -Pain controlled Diabetes -Blood sugar is improved -AC/HS accuchecks with SSI -Lantus -A1C 10.8; noncompliant with medical care/follow up, no PCP that she can identify locally in [place] where she resides -CDE to visit with her today -Homogenizer Operator consult -Lisinopril for renal protection -Lipid panel -Urine microalbumin -Recommend eye exam Hypothyroidism -TSH elevated >30 -Noncompliance with taking medication- admits to this -Levothyroxine daily Medical noncompliance- as above with DM and thyroid disease Other: GI/DVT prophylax CM/SW for assist with DC plan, may need Vibra for usp abx therapy and wound care, pending cultures and need for wound care pending Ortho/primary attending recommendations. Patient is Full Code status.
[2017-07-19] MEDS ORDERED: Magnesium Sulfate/Water 2 GM in Premix Bag 1 BAG IV ONE (11:30)
[2017-07-19] MEDS ORDERED: LORazepam 2 MG/ML MDV IVPUSH PRN (19:22)
[2017-07-19] MEDS: Topiramate 25 MG Tab PO SCH (20:39)
--- NOTE | 2017-07-19 21:13 | PCM.SURGPN ---
- General Info Date of Service: 07/19/17 POD#: 1 Functional Status: Reports: Other (The pt's pain has been controlled this afternoon.) - Review of Systems General: Denies: Fever, Chills Musculoskeletal: Reports: Other (The pt states she has noted less finger swelling this afternoon.) - Patient Data Vitals - Most Recent: Last Vital Signs Temp 99.0 F 07/19/17 16:22 Pulse 80 07/19/17 16:22 Resp 16 07/19/17 16:22 BP 144/86 H 07/19/17 16:22 Pulse Ox 95 07/19/17 16:22 Weight - Most Recent: 135 lb 8 oz I&O - Last 24 Hours: Intake & Output 07/19/17 07/19/17 07/19/17 06:59 14:59 22:59 Intake Total 850 240 840 Output Total 600 1800 Balance 250 240 -960 Lab Results Last 24 Hrs: Laboratory Results - last 24 hr 07/19/17 07/19/17 07/19/17 Range/Units 05:25 05:25 06:44 WBC 6.48 (3.98-10.04) K/mm3 RBC 4.58 (3.98-5.22) M/mm3 Hgb 12.6 (11.2-15.7) gm/L Hct 37.8 (34.1-44.9) % MCV 82.5 (79.4-94.8) fl MCH 27.5 (25.6-32.2) pg MCHC 33.3 (32.2-35.5) g/dl RDW Std Deviation 41.7 (36.4-46.3) fL Plt Count 252 (182-369) K/mm3 MPV 10.6 (9.4-12.3) fl Neut % (Auto) 54.5 (34.0-71.1) % Lymph % (Auto) 29.0 (19.3-51.7) % Pine % (Auto) 12.5 (4.7-12.5) % Eos % (Auto) 3.5 (0.7-5.8) Baso % (Auto) 0.3 (0.1-1.2) % Neut # (Auto) 3.53 (1.56-6.13) K/mm3 Lymph # (Auto) 1.88 (1.18-3.74) K/mm3 Pine # (Auto) 0.81 H (0.24-0.36) K/mm3 Eos # (Auto) 0.23 (0.04-0.36) K/mm3 Baso # (Auto) 0.02 (0.01-0.08) K/mm3 Sodium 139 (136-145) mEq/L Potassium 3.8 (3.5-5.1) mEq/L Chloride 104 (98-107) mEq/L Carbon Dioxide 29 (21-32) mEq/L Anion Gap 9.8 (5-15) BUN 7 (7-18) mg/dL Creatinine 0.6 (0.55-1.02) mg/dL Est Cr Clr Drug Dosing 103.50 mL/min Estimated GFR (MDRD) > 60 (>60) mL/min BUN/Creatinine Ratio 11.7 L (14-18) Glucose 108 H (74-106) mg/dL POC Glucose 205 H (70-105) mg/dL Calcium 8.3 L (8.5-10.1) mg/dL Magnesium 1.8 (1.8-2.4) mg/dl C-Reactive Protein 4.5 H* (<1.0) mg/dL 07/19/17 07/19/17 Range/Units 11:51 16:20 WBC (3.98-10.04) K/mm3 RBC (3.98-5.22) M/mm3 Hgb (11.2-15.7) gm/L Hct (34.1-44.9) % MCV (79.4-94.8) fl MCH (25.6-32.2) pg MCHC (32.2-35.5) g/dl RDW Std Deviation (36.4-46.3) fL Plt Count (182-369) K/mm3 MPV (9.4-12.3) fl Neut % (Auto) (34.0-71.1) % Lymph % (Auto) (19.3-51.7) % Pine % (Auto) (4.7-12.5) % Eos % (Auto) (0.7-5.8) Baso % (Auto) (0.1-1.2) % Neut # (Auto) (1.56-6.13) K/mm3 Lymph # (Auto) (1.18-3.74) K/mm3 Pine # (Auto) (0.24-0.36) K/mm3 Eos # (Auto) (0.04-0.36) K/mm3 Baso # (Auto) (0.01-0.08) K/mm3 Sodium (136-145) mEq/L Potassium (3.5-5.1) mEq/L Chloride (98-107) mEq/L Carbon Dioxide (21-32) mEq/L Anion Gap (5-15) BUN (7-18) mg/dL Creatinine (0.55-1.02) mg/dL Est Cr Clr Drug Dosing mL/min Estimated GFR (MDRD) (>60) mL/min BUN/Creatinine Ratio (14-18) Glucose (74-106) mg/dL POC Glucose 173 H 195 H (70-105) mg/dL Calcium (8.5-10.1) mg/dL Magnesium (1.8-2.4) mg/dl C-Reactive Protein (<1.0) mg/dL Vince Results Last 24 Hrs: Microbiology 07/18/17 13:00 Gram Stain - Final Wrist, Left Anaerobic Culture - Preliminary Gram Positive Cocci Med Orders - Current: Current Medications Albuterol/Ipratropium (Duoneb 3.0-0.5 Mg/3 Ml) 3 ml NEB Q4H PRN PRN Reason: Shortness Of Breath/wheezing Bisacodyl (Dulcolax) 5 mg PO DAILY PRN PRN Reason: Constipation Dextrose/Water (Dextrose 50% In Water) 50 ml IVPUSH ASDIRECTED PRN PRN Reason: Hypoglycemia Diphenhydramine HCl (Benadryl) 25 mg IVPUSH Q6H PRN PRN Reason: Pruritis Docusate Sodium (Colace) 100 mg PO BID PRN PRN Reason: Constipation Hydralazine HCl (Apresoline) 20 mg IVPUSH Q4H PRN PRN Reason: Hypertension Hydromorphone HCl (Dilaudid) 0.5 mg IVPUSH Q2H PRN PRN Reason: Pain Last Admin: 07/19/17 19:39 Dose: 0.5 mg Promethazine HCl 12.5 mg/ (Sodium Chloride) 50.5 mls @ 100 mls/hr IV Q6H PRN PRN Reason: Nausea/Vomiting Vancomycin HCl 1 gm/ Sodium (Chloride) 250 mls @ 250 mls/hr IV Q12H [facility] Last Admin: 07/19/17 20:38 Dose: 250 mls/hr Ibuprofen (Motrin) 600 mg PO Q6H PRN PRN Reason: Pain Last Admin: 07/19/17 03:05 Dose: 600 mg Insulin Aspart (Novolog) 0 unit SUBCUT QIDACANDBED [facility] PRN Reason: Protocol Last Admin: 07/19/17 18:10 Dose: 2 units Insulin Detemir (Levemir) 13 unit SUBCUT BEDTIME [facility] Last Admin: 07/18/17 21:30 Dose: 13 units Levothyroxine Sodium (Levothyroxine) 112 mcg PO ACBREAKFAST [facility] Last Admin: 07/19/17 05:28 Dose: 112 mcg Lisinopril (Prinivil) 10 mg PO DAILY [facility] Last Admin: 07/19/17 09:35 Dose: 10 mg Lorazepam (Ativan) 2 mg IVPUSH Q4H PRN PRN Reason: Seizures Lorazepam (Ativan) 1 mg IVPUSH Q12HR PRN PRN Reason: Anxiety Magnesium Sulfate (Pharmacy To Dose - Magnesium Replacement) 0 dose .XX ASDIRECTED PRN PRN Reason: RX TO WATCH MAG LEVELS Metoprolol Tartrate (Lopressor) 5 mg IVPUSH Q4H PRN PRN Reason: Tachycardia Ondansetron HCl (Zofran) 4 mg IV Q6H PRN PRN Reason: Nausea/Vomiting Oxycodone HCl (Oxycodone) 5 - 10 mg PO Q4H PRN PRN Reason: Pain Last Admin: 07/19/17 19:38 Dose: 10 mg Polyethylene Glycol (Miralax) 17 gm PO DAILY PRN PRN Reason: Constipation Potassium Chloride (Pharmacy To Dose - Potassium Replacement) 0 dose .XX ASDIRECTED PRN PRN Reason: RX TO WATCH K LEVELS Senna/Docusate Sodium (Senna Plus) 1 tab PO BID PRN PRN Reason: Constipation Temazepam (Restoril) 15 mg PO BEDTIME PRN PRN Reason: Sleep Last Admin: 07/19/17 02:02 Dose: 15 mg Topiramate (Topamax) 25 mg PO BID [facility] Last Admin: 07/19/17 20:39 Dose: 25 mg Discontinued Medications Cefazolin Sodium (Ancef) Confirm Administered Dose 2 gm .ROUTE .STK-MED ONE Stop: 07/18/17 13:11 Fentanyl (Sublimaze) Confirm Administered Dose 250 mcg .ROUTE .STK-MED ONE Stop: 07/18/17 11:55 Fentanyl (Sublimaze) 50 mcg IVPUSH Q5M PRN PRN Reason: Pain Stop: 07/18/17 14:38 Last Admin: 07/18/17 14:51 Dose: 50 mcg Hydromorphone HCl (Dilaudid) 1 mg IM ONETIME ONE Stop: 07/17/17 20:07 Last Admin: 07/17/17 20:10 Dose: 1 mg Hydromorphone HCl (Dilaudid) Confirm Administered Dose 0.5 mg .ROUTE .STK-MED ONE Stop: 07/17/17 23:38 Last Admin: 07/17/17 23:56 Dose: Not Given Hydromorphone HCl (Dilaudid) 0.5 mg IVPUSH Q15M PRN PRN Reason: Pain (severe 7-10) Stop: 07/18/17 14:38 Last Admin: 07/18/17 14:55 Dose: 0.5 mg Vancomycin HCl 1 gm/ Sodium (Chloride) 250 mls @ 100 mls/hr IV BID ONE Stop: 07/18/17 00:15 Last Admin: 07/17/17 23:49 Dose: 100 mls/hr Dextrose/Water (Dextrose 5% In Water) 1,000 mls @ 100 mls/hr IV ASDIRECTED [facility] Last Admin: 07/18/17 06:11 Dose: 100 mls/hr Dextrose/Water (Dextrose 5% In Water) Confirm Administered Dose 1,000 mls @ as directed .ROUTE .STK-MED ONE Stop: 07/18/17 06:05 Last Admin: 07/18/17 08:03 Dose: Not Given Lidocaine HCl (Xylocaine-Mpf 1%) Confirm Administered Dose 4 mls @ as directed .ROUTE .STK-MED ONE Stop: 07/18/17 11:56 Lactated Ringer's (Ringers, Lactated) Confirm Administered Dose 1,000 mls @ as directed .ROUTE .STK-MED ONE Stop: 07/18/17 14:03 Magnesium Sulfate 2 gm/ Premix 50 mls @ 25 mls/hr IV ONETIME ONE Stop: 07/19/17 13:29 Last Admin: 07/19/17 12:12 Dose: 25 mls/hr Insulin Detemir (Levemir) 15 unit SUBCUT ONETIME ONE Stop: 07/17/17 21:57 Last Admin: 07/18/17 02:54 Dose: Not Given Insulin Detemir (Levemir) 15 unit SUBCUT ONETIME ONE Stop: 07/18/17 00:31 Last Admin: 07/18/17 00:24 Dose: Not Given Ketorolac Tromethamine (Toradol) 60 mg IM ONETIME ONE Stop: 07/17/17 20:07 Last Admin: 07/17/17 20:10 Dose: 60 mg Levothyroxine Sodium (Synthroid) 100 mcg PO ACBREAKFAST [facility] Lorazepam (Ativan) 1 mg IV Q6H PRN PRN Reason: Anxiety Last Admin: 07/18/17 23:59 Dose: 1 mg Meperidine HCl (Demerol) 12.5 mg IVPUSH ONETIME PRN PRN Reason: Shivering Stop: 07/18/17 16:00 Midazolam HCl (Versed 1 Mg/Ml) Confirm Administered Dose 2 mg .ROUTE .STK-MED ONE Stop: 07/18/17 11:55 Morphine Sulfate (Morphine) 2 mg IVPUSH Q2H PRN PRN Reason: Pain (moderate 4-6) Ondansetron HCl (Zofran Odt) 4 mg PO Q6H ONE Stop: 07/17/17 21:47 Last Admin: 07/17/17 23:51 Dose: Not Given Ondansetron HCl (Zofran) Confirm Administered Dose 4 mg .ROUTE .STK-MED ONE Stop: 07/18/17 11:56 Ondansetron HCl (Zofran) 4 mg IVPUSH ONETIME PRN PRN Reason: Nausea/Vomiting Stop: 07/18/17 16:00 Oxycodone HCl (Oxycodone) 5 mg PO Q4H PRN PRN Reason: Pain Pneumococcal Polyvalent Vaccine (Pneumovax 23) 0.5 ml IM .ONCE ONE Stop: 07/18/17 03:01 Propofol (Diprivan 20 Ml) Confirm Administered Dose 200 mg .ROUTE .STK-MED ONE Stop: 07/18/17 11:55 Succinylcholine Chloride (Quelicin) Confirm Administered Dose 200 mg .ROUTE .STK -MED ONE Stop: 07/18/17 12:18 - Exam Wound/Incisions: Dressing Dry and Intact General: Cooperative Lungs: Normal Respiratory Effort Extremities: Other (The pt was able to flex and extend all fingers of left hand. NVS intact for LUE.) - Problem List Review Problem List Initiated/Reviewed/Updated: Yes - My Orders Last 24 Hours: Active Orders 24 hr Category Date Time Status CIWAA Assessment [RC] ASDIRECTED Care 07/19/17 21:06 Ordered Notify Provider Consults [RC] ASDIRECTED Care 07/19/17 13:09 Active Consult to Marzipan Maker [CONS] Routine Cons 07/19/17 13:09 Active Consult to Physician [CONS] Routine Cons 07/19/17 13:08 Active BASIC METABOLIC PANEL,BMP [CHEM] DAILY Lab 07/20/17 05:00 Ordered BASIC METABOLIC PANEL,BMP [CHEM] DAILY Lab 07/21/17 05:00 Ordered BASIC METABOLIC PANEL,BMP [CHEM] DAILY Lab 07/22/17 05:00 Ordered BASIC METABOLIC PANEL,BMP [CHEM] DAILY Lab 07/23/17 05:00 Ordered C-REACTIVE PROTEIN [CHEM] DAILY Lab 07/20/17 05:00 Ordered C-REACTIVE PROTEIN [CHEM] DAILY Lab 07/21/17 05:00 Ordered C-REACTIVE PROTEIN [CHEM] DAILY Lab 07/22/17 05:00 Ordered C-REACTIVE PROTEIN [CHEM] DAILY Lab 07/23/17 05:00 Ordered CBC WITH AUTO DIFF [HEME] DAILY Lab 07/20/17 05:00 Ordered CBC WITH AUTO DIFF [HEME] DAILY Lab 07/21/17 05:00 Ordered CBC WITH AUTO DIFF [HEME] DAILY Lab 07/22/17 05:00 Ordered CBC WITH AUTO DIFF [HEME] DAILY Lab 07/23/17 05:00 Ordered MISC TEST Routine Lab 07/19/17 11:03 Received Ibuprofen [Motrin] Med 07/19/17 02:36 Active 600 mg PO Q6H PRN LORazepam [Ativan] Med 07/19/17 19:22 Active 1 mg IVPUSH Q12HR PRN Topiramate [Topamax] Med 07/19/17 21:00 Active 25 mg PO BID Pulse Oximetry Continuous Monitoring [OM.PC] Routine Ot 07/18/17 20:17 Active Medication Orders Albuterol/Ipratropium (Duoneb 3.0-0.5 Mg/3 Ml) 3 ml NEB Q4H PRN PRN Reason: Shortness Of Breath/wheezing Bisacodyl (Dulcolax) 5 mg PO DAILY PRN PRN Reason: Constipation Dextrose/Water (Dextrose 50% In Water) 50 ml IVPUSH ASDIRECTED PRN PRN Reason: Hypoglycemia Diphenhydramine HCl (Benadryl) 25 mg IVPUSH Q6H PRN PRN Reason: Pruritis Docusate Sodium (Colace) 100 mg PO BID PRN PRN Reason: Constipation Hydralazine HCl (Apresoline) 20 mg IVPUSH Q4H PRN PRN Reason: Hypertension Hydromorphone HCl (Dilaudid) 0.5 mg IVPUSH Q2H PRN PRN Reason: Pain Last Admin: 07/19/17 19:39 Dose: 0.5 mg Admin: 07/19/17 17:32 Dose: 0.5 mg Admin: 07/19/17 14:46 Dose: 0.5 mg Admin: 07/19/17 12:23 Dose: 0.5 mg Admin: 07/19/17 09:40 Dose: 0.5 mg Admin: 07/19/17 07:37 Dose: 0.5 mg Admin: 07/19/17 05:28 Dose: 0.5 mg Admin: 07/19/17 02:02 Dose: 0.5 mg Admin: 07/18/17 23:16 Dose: 0.5 mg Admin: 07/18/17 21:15 Dose: 0.5 mg Admin: 07/18/17 18:22 Dose: 0.5 mg Admin: 07/18/17 16:20 Dose: 0.5 mg Admin: 07/18/17 10:03 Dose: 0.5 mg Admin: 07/18/17 06:17 Dose: 0.5 mg Admin: 07/18/17 03:57 Dose: 0.5 mg Admin: 07/17/17 23:42 Dose: 0.5 mg Promethazine HCl 12.5 mg/ (Sodium Chloride) 50.5 mls @ 100 mls/hr IV Q6H PRN PRN Reason: Nausea/Vomiting Vancomycin HCl 1 gm/ Sodium (Chloride) 250 mls @ 250 mls/hr IV Q12H [facility] Last Admin: 07/19/17 20:38 Dose: 250 mls/hr Infusion: 07/19/17 10:38 Dose: 250 mls/hr Admin: 07/19/17 09:38 Dose: 250 mls/hr Infusion: 07/18/17 22:15 Dose: 250 mls/hr Admin: 07/18/17 21:15 Dose: 250 mls/hr Infusion: 07/18/17 11:12 Dose: 250 mls/hr Admin: 07/18/17 10:12 Dose: 250 mls/hr Ibuprofen (Motrin) 600 mg PO Q6H PRN PRN Reason: Pain Last Admin: 07/19/17 03:05 Dose: 600 mg Insulin Aspart (Novolog) 0 unit SUBCUT QIDACANDBED [facility] PRN Reason: Protocol Last Admin: 07/19/17 18:10 Dose: 2 units Admin: 07/19/17 12:13 Dose: 2 units Admin: 07/19/17 06:54 Dose: 4 units Admin: 07/18/17 22:02 Dose: Not Given Admin: 07/18/17 17:30 Dose: 2 units Admin: 07/18/17 15:21 Dose: Not Given Admin: 07/18/17 08:03 Dose: Not Given Admin: 07/18/17 00:05 Dose: Not Given Insulin Detemir (Levemir) 13 unit SUBCUT BEDTIME [facility] Last Admin: 07/18/17 21:30 Dose: 13 units Levothyroxine Sodium (Levothyroxine) 112 mcg PO ACBREAKFAST [facility] Last Admin: 07/19/17 05:28 Dose: 112 mcg Admin: 07/18/17 09:29 Dose: 112 mcg Lisinopril (Prinivil) 10 mg PO DAILY [facility] Last Admin: 07/19/17 09:35 Dose: 10 mg Admin: 07/18/17 09:29 Dose: 10 mg Lorazepam (Ativan) 2 mg IVPUSH Q4H PRN PRN Reason: Seizures Lorazepam (Ativan) 1 mg IVPUSH Q12HR PRN PRN Reason: Anxiety Magnesium Sulfate (Pharmacy To Dose - Magnesium Replacement) 0 dose .XX ASDIRECTED PRN PRN Reason: RX TO WATCH MAG LEVELS Metoprolol Tartrate (Lopressor) 5 mg IVPUSH Q4H PRN PRN Reason: Tachycardia Ondansetron HCl (Zofran) 4 mg IV Q6H PRN PRN Reason: Nausea/Vomiting Oxycodone HCl (Oxycodone) 5 - 10 mg PO Q4H PRN PRN Reason: Pain Last Admin: 07/19/17 19:38 Dose: 10 mg Admin: 07/19/17 14:45 Dose: 10 mg Admin: 07/19/17 07:04 Dose: 10 mg Admin: 07/19/17 03:04 Dose: 10 mg Admin: 07/18/17 23:16 Dose: 10 mg Admin: 07/18/17 18:00 Dose: 10 mg Admin: 07/18/17 09:34 Dose: 10 mg Admin: 07/18/17 00:20 Dose: 10 mg Polyethylene Glycol (Miralax) 17 gm PO DAILY PRN PRN Reason: Constipation Potassium Chloride (Pharmacy To Dose - Potassium Replacement) 0 dose .XX ASDIRECTED PRN PRN Reason: RX TO WATCH K LEVELS Senna/Docusate Sodium (Senna Plus) 1 tab PO BID PRN PRN Reason: Constipation Temazepam (Restoril) 15 mg PO BEDTIME PRN PRN Reason: Sleep Last Admin: 07/19/17 02:02 Dose: 15 mg Topiramate (Topamax) 25 mg PO BID SB Last Admin: 07/19/17 20:39 Dose: 25 mg - Assessment Assessment (Free Text/Narrative):: POD#1 - s/p I&D left wrist - Plan Plan (Free Text/Narrative):: 1. Medical management per Hospitalist service. The pt's blood sugars are being monitored and CIWAA protocol has been ordered due to hx positive urine drug screen. 2. Continue with vanc via PICC and dosed by Pharmacy. 3. Thus far, gram positive cocci - strep anginosus noted with culture. Sensitivities pending. 4. Suspect discharge to half-way acute center or intermediate for continued IV antibiotic therapy and monitoring. The pt's case has been discussed with Dr. Melgar.
[2017-07-19] MEDS: Insulin Detemir 100 Units/ML 3 ML Pen SUBCUT SCH (22:04)
[2017-07-20] MEDS: HYDROmorphone 0.5 MG/0.5 ML Syringe IVPUSH PRN ×7 (00:26→23:06)
[2017-07-20] MEDS: oxyCODONE 5 MG Tab PO PRN ×4 (00:26→20:05)
[2017-07-20] MEDS: Topiramate 25 MG Tab PO SCH ×2 (09:10→20:05)
[2017-07-20] MEDS: Lisinopril 10 MG Tab PO SCH (09:10)
--- NOTE | 2017-07-20 09:18 | PCM.CONSN ---
- General Info Date of Service: 07/20/17 Admission Dx/Problem (Free Text): Upper Distal Extremity Cellulitis with Abscess Patient was seen just prior to going to surgery for I&D of left hand. Subjective Update: Follow-up Hyperglycemia Functional Status: Reports: Pain Controlled, Tolerating Diet, Ambulating, Urinating. Denies: New Symptoms Pain Score: 5 - Review of Systems General: Denies: Fever, Weakness, Fatigue, Malaise HEENT: Reports: No Symptoms Pulmonary: Denies: Shortness of Breath Cardiovascular: Denies: Chest Pain Gastrointestinal: Denies: Abdominal Pain, Nausea, Vomiting Genitourinary: Reports: No Symptoms Musculoskeletal: Reports: Arm Pain Skin: Denies: Cyanosis, Mottled, Pallor, Pruritis, Rash Neurological: Denies: Confusion, Difficulty Walking, Weakness, Gait Disturbance Psychiatric: Denies: Depression, Mood Lability, Anxiety, Agitation, Cravings, Hallucinations, Suicidal Ideation Systems Review Comment:: No significant overnight or acute issues. She looks relatively okay. Her sugar is in the 200s. She is afebrile w/o leukocytosis. - Patient Data Vitals - Most Recent: Last Vital Signs Temp 36.8 C 07/20/17 07:31 Pulse 72 07/20/17 07:31 Resp 12 07/20/17 07:31 BP 129/86 07/20/17 07:31 Pulse Ox 96 07/20/17 07:31 Weight - Most Recent: 63.14 kg I&O - Last 24 Hours: Intake & Output 07/19/17 07/20/17 07/20/17 22:59 06:59 14:59 Intake Total 840 620 Output Total 1800 1000 Balance -960 -380 Lab Results Last 24 Hours: Laboratory Results - last 24 hr 07/19/17 07/19/17 07/19/17 Range/Units 11:51 16:20 21:57 WBC (3.98-10.04) K/mm3 RBC (3.98-5.22) M/mm3 Hgb (11.2-15.7) gm/L Hct (34.1-44.9) % MCV (79.4-94.8) fl MCH (25.6-32.2) pg MCHC (32.2-35.5) g/dl RDW Std Deviation (36.4-46.3) fL Plt Count (182-369) K/mm3 MPV (9.4-12.3) fl Neut % (Auto) (34.0-71.1) % Lymph % (Auto) (19.3-51.7) % Store[place] % (Auto) (4.7-12.5) % Eos % (Auto) (0.7-5.8) Baso % (Auto) (0.1-1.2) % Neut # (Auto) (1.56-6.13) K/mm3 Lymph # (Auto) (1.18-3.74) K/mm3 [place] # (Auto) (0.24-0.36) K/mm3 Eos # (Auto) (0.04-0.36) K/mm3 Baso # (Auto) (0.01-0.08) K/mm3 Sodium (136-145) mEq/L Potassium (3.5-5.1) mEq/L Chloride (98-107) mEq/L Carbon Dioxide (21-32) mEq/L Anion Gap (5-15) BUN (7-18) mg/dL Creatinine (0.55-1.02) mg/dL Est Cr Clr Drug Dosing mL/min Estimated GFR (MDRD) (>60) mL/min BUN/Creatinine Ratio (14-18) Glucose (74-106) mg/dL POC Glucose 173 H 195 H 357 H (70-105) mg/dL Calcium (8.5-10.1) mg/dL C-Reactive Protein (<1.0) mg/dL 07/20/17 07/20/17 07/20/17 Range/Units 05:25 05:25 05:43 WBC 5.76 (3.98-10.04) K/mm3 RBC 4.20 (3.98-5.22) M/mm3 Hgb 11.5 (11.2-15.7) gm/L Hct 35.1 (34.1-44.9) % MCV 83.6 (79.4-94.8) fl MCH 27.4 (25.6-32.2) pg MCHC 32.8 (32.2-35.5) g/dl RDW Std Deviation 42.0 (36.4-46.3) fL Plt Count 231 (182-369) K/mm3 MPV 10.5 (9.4-12.3) fl Neut % (Auto) 61.6 (34.0-71.1) % Lymph % (Auto) 24.0 (19.3-51.7) % Storey % (Auto) 10.1 (4.7-12.5) % Eos % (Auto) 3.5 (0.7-5.8) Baso % (Auto) 0.5 (0.1-1.2) % Neut # (Auto) 3.55 (1.56-6.13) K/mm3 Lymph # (Auto) 1.38 (1.18-3.74) K/mm3 [place]y # (Auto) 0.58 H (0.24-0.36) K/mm3 Eos # (Auto) 0.20 (0.04-0.36) K/mm3 Baso # (Auto) 0.03 (0.01-0.08) K/mm3 Sodium 138 (136-145) mEq/L Potassium 4.0 (3.5-5.1) mEq/L Chloride 102 (98-107) mEq/L Carbon Dioxide 28 (21-32) mEq/L Anion Gap 12.0 (5-15) BUN 12 (7-18) mg/dL Creatinine 0.6 (0.55-1.02) mg/dL Est Cr Clr Drug Dosing 103.50 mL/min Estimated GFR (MDRD) > 60 (>60) mL/min BUN/Creatinine Ratio 20.0 H (14-18) Glucose 71 L (74-106) mg/dL POC Glucose 75 (70-105) mg/dL Calcium 8.5 (8.5-10.1) mg/dL C-Reactive Protein 4.3 H* (<1.0) mg/dL 07/20/17 Range/Units 06:34 WBC (3.98-10.04) K/mm3 RBC (3.98-5.22) M/mm3 Hgb (11.2-15.7) gm/L Hct (34.1-44.9) % MCV (79.4-94.8) fl MCH (25.6-32.2) pg MCHC (32.2-35.5) g/dl RDW Std Deviation (36.4-46.3) fL Plt Count (182-369) K/mm3 MPV (9.4-12.3) fl Neut % (Auto) (34.0-71.1) % Lymph % (Auto) (19.3-51.7) % [place] % (Auto) (4.7-12.5) % Eos % (Auto) (0.7-5.8) Baso % (Auto) (0.1-1.2) % Neut # (Auto) (1.56-6.13) K/mm3 Lymph # (Auto) (1.18-3.74) K/mm3 [place] # (Auto) (0.24-0.36) K/mm3 Eos # (Auto) (0.04-0.36) K/mm3 Baso # (Auto) (0.01-0.08) K/mm3 Sodium (136-145) mEq/L Potassium (3.5-5.1) mEq/L Chloride (98-107) mEq/L Carbon Dioxide (21-32) mEq/L Anion Gap (5-15) BUN (7-18) mg/dL Creatinine (0.55-1.02) mg/dL Est Cr Clr Drug Dosing mL/min Estimated GFR (MDRD) (>60) mL/min BUN/Creatinine Ratio (14-18) Glucose (74-106) mg/dL POC Glucose 101 (70-105) mg/dL Calcium (8.5-10.1) mg/dL C-Reactive Protein (<1.0) mg/dL Vince Results Last 24 Hours: Microbiology 07/18/17 13:00 Gram Stain - Final Wrist, Left Anaerobic Culture - Preliminary Gram Positive Cocci Med Orders - Current: Current Medications Albuterol/Ipratropium (Duoneb 3.0-0.5 Mg/3 Ml) 3 ml NEB Q4H PRN PRN Reason: Shortness Of Breath/wheezing Bisacodyl (Dulcolax) 5 mg PO DAILY PRN PRN Reason: Constipation Dextrose/Water (Dextrose 50% In Water) 50 ml IVPUSH ASDIRECTED PRN PRN Reason: Hypoglycemia Diphenhydramine HCl (Benadryl) 25 mg IVPUSH Q6H PRN PRN Reason: Pruritis Docusate Sodium (Colace) 100 mg PO BID PRN PRN Reason: Constipation Hydralazine HCl (Apresoline) 20 mg IVPUSH Q4H PRN PRN Reason: Hypertension Hydromorphone HCl (Dilaudid) 0.5 mg IVPUSH Q2H PRN PRN Reason: Pain Last Admin: 07/20/17 00:26 Dose: 0.5 mg Promethazine HCl 12.5 mg/ (Sodium Chloride) 50.5 mls @ 100 mls/hr IV Q6H PRN PRN Reason: Nausea/Vomiting Vancomycin HCl 1 gm/ Sodium (Chloride) 250 mls @ 250 mls/hr IV Q12H [facility] Last Admin: 07/19/17 20:38 Dose: 250 mls/hr Ibuprofen (Motrin) 600 mg PO Q6H PRN PRN Reason: Pain Last Admin: 07/19/17 03:05 Dose: 600 mg Insulin Aspart (Novolog) 0 unit SUBCUT QIDACANDBED [facility] PRN Reason: Protocol Last Admin: 07/19/17 22:05 Dose: 10 units Insulin Detemir (Levemir) 13 unit SUBCUT BEDTIME [facility] Last Admin: 07/19/17 22:04 Dose: 13 units Levothyroxine Sodium (Levothyroxine) 112 mcg PO ACBREAKFAST [facility] Last Admin: 07/19/17 05:28 Dose: 112 mcg Lisinopril (Prinivil) 10 mg PO DAILY [facility] Last Admin: 07/19/17 09:35 Dose: 10 mg Lorazepam (Ativan) 2 mg IVPUSH Q4H PRN PRN Reason: Seizures Lorazepam (Ativan) 1 mg IVPUSH Q12HR PRN PRN Reason: Anxiety Magnesium Sulfate (Pharmacy To Dose - Magnesium Replacement) 0 dose .XX ASDIRECTED PRN PRN Reason: RX TO WATCH MAG LEVELS Metoprolol Tartrate (Lopressor) 5 mg IVPUSH Q4H PRN PRN Reason: Tachycardia Ondansetron HCl (Zofran) 4 mg IV Q6H PRN PRN Reason: Nausea/Vomiting Oxycodone HCl (Oxycodone) 5 - 10 mg PO Q4H PRN PRN Reason: Pain Last Admin: 07/20/17 00:26 Dose: 10 mg Polyethylene Glycol (Miralax) 17 gm PO DAILY PRN PRN Reason: Constipation Potassium Chloride (Pharmacy To Dose - Potassium Replacement) 0 dose .XX ASDIRECTED PRN PRN Reason: RX TO WATCH K LEVELS Senna/Docusate Sodium (Senna Plus) 1 tab PO BID PRN PRN Reason: Constipation Temazepam (Restoril) 15 mg PO BEDTIME PRN PRN Reason: Sleep Last Admin: 07/19/17 02:02 Dose: 15 mg Topiramate (Topamax) 25 mg PO BID [facility] Last Admin: 07/19/17 20:39 Dose: 25 mg Discontinued Medications Cefazolin Sodium (Ancef) Confirm Administered Dose 2 gm .ROUTE .STK-MED ONE Stop: 07/18/17 13:11 Fentanyl (Sublimaze) Confirm Administered Dose 250 mcg .ROUTE .STK-MED ONE Stop: 07/18/17 11:55 Fentanyl (Sublimaze) 50 mcg IVPUSH Q5M PRN PRN Reason: Pain Stop: 07/18/17 14:38 Last Admin: 07/18/17 14:51 Dose: 50 mcg Hydromorphone HCl (Dilaudid) 1 mg IM ONETIME ONE Stop: 07/17/17 20:07 Last Admin: 07/17/17 20:10 Dose: 1 mg Hydromorphone HCl (Dilaudid) Confirm Administered Dose 0.5 mg .ROUTE .STK-MED ONE Stop: 07/17/17 23:38 Last Admin: 07/17/17 23:56 Dose: Not Given Hydromorphone HCl (Dilaudid) 0.5 mg IVPUSH Q15M PRN PRN Reason: Pain (severe 7-10) Stop: 07/18/17 14:38 Last Admin: 07/18/17 14:55 Dose: 0.5 mg Vancomycin HCl 1 gm/ Sodium (Chloride) 250 mls @ 100 mls/hr IV BID ONE Stop: 07/18/17 00:15 Last Admin: 07/17/17 23:49 Dose: 100 mls/hr Dextrose/Water (Dextrose 5% In Water) 1,000 mls @ 100 mls/hr IV ASDIRECTED [facility] Last Admin: 07/18/17 06:11 Dose: 100 mls/hr Dextrose/Water (Dextrose 5% In Water) Confirm Administered Dose 1,000 mls @ as directed .ROUTE .STK-MED ONE Stop: 07/18/17 06:05 Last Admin: 07/18/17 08:03 Dose: Not Given Lidocaine HCl (Xylocaine-Mpf 1%) Confirm Administered Dose 4 mls @ as directed .ROUTE .STK-MED ONE Stop: 07/18/17 11:56 Lactated Ringer's (Ringers, Lactated) Confirm Administered Dose 1,000 mls @ as directed .ROUTE .STK-MED ONE Stop: 07/18/17 14:03 Magnesium Sulfate 2 gm/ Premix 50 mls @ 25 mls/hr IV ONETIME ONE Stop: 07/19/17 13:29 Last Admin: 07/19/17 12:12 Dose: 25 mls/hr Insulin Detemir (Levemir) 15 unit SUBCUT ONETIME ONE Stop: 07/17/17 21:57 Last Admin: 07/18/17 02:54 Dose: Not Given Insulin Detemir (Levemir) 15 unit SUBCUT ONETIME ONE Stop: 07/18/17 00:31 Last Admin: 07/18/17 00:24 Dose: Not Given Ketorolac Tromethamine (Toradol) 60 mg IM ONETIME ONE Stop: 07/17/17 20:07 Last Admin: 07/17/17 20:10 Dose: 60 mg Levothyroxine Sodium (Synthroid) 100 mcg PO ACBREAKFAST SB Lorazepam (Ativan) 1 mg IV Q6H PRN PRN Reason: Anxiety Last Admin: 07/18/17 23:59 Dose: 1 mg Meperidine HCl (Demerol) 12.5 mg IVPUSH ONETIME PRN PRN Reason: Shivering Stop: 07/18/17 16:00 Midazolam HCl (Versed 1 Mg/Ml) Confirm Administered Dose 2 mg .ROUTE .STK-MED ONE Stop: 07/18/17 11:55 Morphine Sulfate (Morphine) 2 mg IVPUSH Q2H PRN PRN Reason: Pain (moderate 4-6) Ondansetron HCl (Zofran Odt) 4 mg PO Q6H ONE Stop: 07/17/17 21:47 Last Admin: 07/17/17 23:51 Dose: Not Given Ondansetron HCl (Zofran) Confirm Administered Dose 4 mg .ROUTE .STK-MED ONE Stop: 07/18/17 11:56 Ondansetron HCl (Zofran) 4 mg IVPUSH ONETIME PRN PRN Reason: Nausea/Vomiting Stop: 07/18/17 16:00 Oxycodone HCl (Oxycodone) 5 mg PO Q4H PRN PRN Reason: Pain Pneumococcal Polyvalent Vaccine (Pneumovax 23) 0.5 ml IM .ONCE ONE Stop: 07/18/17 03:01 Propofol (Diprivan 20 Ml) Confirm Administered Dose 200 mg .ROUTE .STK-MED ONE Stop: 07/18/17 11:55 Succinylcholine Chloride (Quelicin) Confirm Administered Dose 200 mg .ROUTE .STK -MED ONE Stop: 07/18/17 12:18 - Exam General: Alert, Oriented, Cooperative, No Acute Distress HEENT: Pupils Equal, Pupils Reactive, EOMI, Mucous Membr. Moist/[place] Neck: Supple, Trachea Midline, No JVD, No Thyromegaly Lungs: Clear to Auscultation, Normal Respiratory Effort Cardiovascular: Regular Rate, Regular Rhythm GI/Abdominal Exam: Normal Bowel Sounds, Soft, Non-Tender, No Organomegaly, No Distention, No Abnormal Bruit, No Mass (Female) Exam: Deferred Back Exam: Normal Inspection, Decreased Range of Motion Extremities: Normal Inspection, Normal Range of Motion, Non-Tender, No Pedal Edema, Normal Capillary Refill Peripheral Pulses: 3+: Posterior Tibial (L), Posterior Tibial (R), Dorsalis Pedis (L), Dorsalis Pedis (R) Skin: Warm, Dry, Intact Wound/Incisions: Healing Well, Dressing Dry and Intact, No Drainage, Erythema Improving Neurological: Strength Equal Bilateral Psy/Mental Status: Alert, Normal Affect, Normal Mood Consult PN Assessment/Plan POD#: 2 Problem List Initiated/Reviewed/Updated: Yes Plan: Assessment/Plan: Acute: Distal Upper Extremity Cellulitis/SSTI with Abscess - S/p I&D POD#2 - S/p Aspiration by Dr. Melgar - Management per primary team Hyperglycemia with DM - Likely medically non-compliant - Check for A1C: 10.8 noncompliant with medical care/follow up, no PCP that she can identify locally in [place] where she resides - Lipid Panel, UA and Urine Microalbumin - all normal - Would like sugar < 200 - Change Lantus 13 to 15 units SubQ HS and ISS medium to high dose QIDandHS - Diabetic consulted - Lisinopril 10 mg po daily for renal protection - Continue ADA diet Hypothyroidism - TSH elevated >30 - Noncompliance with taking medication- admits to this - Levothyroxine 112 mcg po daily Medical noncompliance- as above with DM and thyroid disease Chronic: OA Migraines Anxiety Hx/o Substance Abuse Nicotine Dependence, Nicotine Patch daily Plan: She remains clinically stable Continue current treatment Routine AM labs Patient already on ASA Continue PT/OT IS q2 awake Encourage patient to ambulate as tolerated Additional order as above
[2017-07-20] MEDS: Insulin Aspart 100 Units/ML 3 ML Pen SUBCUT SCH ×4 (11:20→22:59)
[2017-07-20] MEDS: Levothyroxine 112 MCG Tab PO SCH (11:20)
[2017-07-20] MEDS: Aspirin 325 MG Tab.EC PO SCH ×2 (11:28→20:05)
--- NOTE | 2017-07-20 12:24 | CONS ---
CONSULTING PHYSICIAN: Cordell Giraldo MD DATE OF CONSULTATION: 07/19/2017 This is a 60-minute inpatient clinical event. IDENTIFICATION: The patient is a 37-year-old female is admitted to the Inpatient Medical Unit, [facility] [place] in [place], [place] on 07/17/2017. She is seen for psychiatric evaluation. CHIEF COMPLAINT: "Infection." HISTORY OF PRESENT ILLNESS: The patient is a 37-year-old female, who is admitted to [facility] on 07/17/2017 after presenting to the [facility] with complaints of wrist infection. She was subsequently transferred to the [facility] [place] in [place], [place], admitted for treatment of cellulitis and abscess in left wrist. The patient evidently had a positive UA for marijuana and barbiturates. She is currently being treated with IV antibiotics and request was made for psychiatric consultation. The patient is stating that she is treated with Xanax for anxiety on an outpatient basis. She states her regular family practice doctor has provided this medication. She has also been tried on Wellbutrin in the past without much success for depression. The patient states that she is "a little depressed" at this point in time, but she notes that this is largely situational stating "I am in the hospital. My is gone." Evidently her boyfriend of 11 years is currently in half-way and she is having to take care of their kids largely by herself and with the help of her mother. She denies that she is suicidal or homicidal. She denies any psychotic, delusional, or paranoid symptoms. She does report racing thoughts and ruminations and some checking behaviors. She also reports that she has some irritability and is easily annoyed, although she does not know if she is really having significant mood swings. She states she sleeps poorly only about 4 hours of sleep for 24-hour period, but the Xanax does help her. When she takes the Xanax, she can get longer amounts of sleep up to 6 or 7 hours. She states her issue is mainly poor sleep initiation. She states "I do not feel like I am depressed" in the medical setting, but she does acknowledge she is having difficulty dealing with. Her current situation has been going on and "been sort of tough" over the past 6 weeks or so. Again, she is denying any illicit substance use or excessive alcohol use complicating the clinical picture. Denying any suicidal or homicidal ideation or any psychotic, delusional, or paranoid symptoms. MEDICATIONS: 1. At the time of presentation prior to admission, Xanax 0.5 mg b.i.d. Since admission, the patient has been getting; 1. IV antibiotics. 2. Xanax 1 mg q.6 hours p.r.n. IV. ALLERGIES: 1. Amoxicillin. 2. Penicillin. 3. Acetylsalicylic acid. PAST MEDICAL HISTORY: 1. Abscess in left wrist. 2. Type 1 diabetes. 3. History of scoliosis. 4. History of hypothyroidism. 5. History of migraines. REVIEW OF SYSTEMS: Aside from musculoskeletal, endocrine and neuro, all other major organ systems are negative at this point in time for acute difficulties or complications. FAMILY PSYCHIATRIC AND CD HISTORY: Father was an alcoholic and patient states she has a brother and sister who also struggle with chemical dependency issues. PAST PSYCHIATRIC AND CD HISTORY: The patient denies any previous psychiatric hospitalizations or chemical dependency treatments. Denies any previous suicide attempts or self-injurious behaviors. She is a 1/2-pack per day smoker for the past 20 years. Denies any eating disorder history or any abuse issues. She states that she had 3 tattoos in the past. PAST PSYCHIATRIC MEDICATION HISTORY: Wellbutrin and Xanax. Xanax, she is currently taking on an outpatient basis. PAST PSYCHIATRIC DIAGNOSIS: Includes anxiety and depression. PRIMARY CARE PROVIDER: [facility] at [place], [place]. SOCIAL HISTORY: The patient is born in [place], [place]. Raised in [place], [place]. She is the 4th of 5 siblings, having 3 brothers and 1 sister. The patient's parents when patient was 6 years of age. She stayed with her mother. Father was an RN. Mother was a assembly adjuster. The patient's highest level of education is a GED. The patient was x1 for 7 years and for about 10 years. Been in current relationship for about 10-11 years. Her boyfriend works in the [employer] field. The patient has 4 children. One from her marriage, a 15-year-old living with her father and 3 children from her current relationship 9, 7 and 2- 1/2 years of age are currently with her mother in [place]. The patient lives in [place], [place], when she is not in the hospital. Denies any prior service or current legal difficulties. She is raised Zoroastrianism. She enjoys sports, outdoors activity, painting and crafting. MENTAL STATUS EXAM: The patient is a 37-year-old white female in no apparent distress. Speech is of regular rate and rhythm. The patient is cognitively oriented. Psychomotor activities within normal limits. There are no abnormal motor movements or tics observed. Gait and station are not observed. This patient is sitting in bed for the entirety of the inpatient consult. Mood is anxious and depressed. Affect is somewhat guarded, but cooperative overall for the purposes of the inpatient consult. There is no behavioral or stated evidence of acute suicidal or homicidal ideation or acute psychotic, delusional, or paranoid symptoms. Thought processes are significant for some racing thoughts and ruminations. There are no acute manic symptoms or loose associations evident. Judgment and insight appear poor to possible nature of prescription drug abuse versus dependence. Motivation for help also appears fair to poor. VITAL SIGNS: 144/86, 80, 16, 99 degrees. IMPRESSION: [place] I: 1. Depression, not otherwise specified, F32.9. 2. Anxiety disorder, not otherwise specified F41.9. 3. Rule out prescription drug abuse versus dependence. 4. Rule out cannabis abuse versus dependence. 5. Rule out bipolar affective disease, mixed type. 6. Rule out major depressive disorder. 7. Rule out obsessive-compulsive disorder. [place] II: None. [place] III: 1. Abscess on left wrist, currently being treated with IV antibiotics. 2. Type 1 diabetes. 3. History of hypothyroidism. 4. History of migraines. 5. History of scoliosis. [place] IV: Severe. [place] V: 60. PLAN: 1. Begin trial of Topamax 25 mg b.i.d. for mood stability and anxiety reduction. 2. Continue Xanax, but decrease Xanax from 1 mg q.6 hours p.r.n. to 1 mg b.i.d. p.r.n. 3. We would also consider an antidepressant going forward if need be if the patient's depression symptoms continue. 4. Other medications as dosed by patient's primary medical inpatient treatment team. 5. Chemical dependency for the patient while she remains on the unit to further evaluate possible abuse versus dependency issues given patient's positive UA and concerns of nursing staff, the patient may be surreptitiously taking all medications that she brought in on her own to the hospital despite being told that she is not allowed to do that. 6. Sobriety. 7. migratory worker to obtain collateral information regarding circumstances on patient's admission. 8. We will continue to follow up with the patient on as needed basis going forward while she remains on the inpatient medical unit. 9. We will follow up with the patient sooner if any complications in the interim. 10.Crisis plan is in place. ISAIAH /[id number]
--- NOTE | 2017-07-20 17:42 | PCM.SURGPN ---
- General Info Date of Service: 07/20/17 POD#: 2 Functional Status: Reports: Pain Controlled, Tolerating Diet, Ambulating, Urinating, Other (The pt states she was active in her room and walked in the halls today. She stated she "wacked the arm really hard" on an object when she was up and moving around today.) - Patient Data Vitals - Most Recent: Last Vital Signs Temp 98.8 F 07/20/17 16:00 Pulse 80 07/20/17 16:00 Resp 14 07/20/17 16:00 BP 142/71 H 07/20/17 16:00 Pulse Ox 98 07/20/17 16:00 Weight - Most Recent: 139 lb 3.2 oz I&O - Last 24 Hours: Intake & Output 07/20/17 07/20/17 07/20/17 06:59 14:59 22:59 Intake Total 620 180 750 Output Total 1000 750 Balance -380 180 0 Lab Results Last 24 Hrs: Laboratory Results - last 24 hr 07/19/17 07/20/17 07/20/17 Range/Units 21:57 05:25 05:25 WBC 5.76 (3.98-10.04) K/mm3 RBC 4.20 (3.98-5.22) M/mm3 Hgb 11.5 (11.2-15.7) gm/L Hct 35.1 (34.1-44.9) % MCV 83.6 (79.4-94.8) fl MCH 27.4 (25.6-32.2) pg MCHC 32.8 (32.2-35.5) g/dl RDW Std Deviation 42.0 (36.4-46.3) fL Plt Count 231 (182-369) K/mm3 MPV 10.5 (9.4-12.3) fl Neut % (Auto) 61.6 (34.0-71.1) % Lymph % (Auto) 24.0 (19.3-51.7) % Graham % (Auto) 10.1 (4.7-12.5) % Eos % (Auto) 3.5 (0.7-5.8) Baso % (Auto) 0.5 (0.1-1.2) % Neut # (Auto) 3.55 (1.56-6.13) K/mm3 Lymph # (Auto) 1.38 (1.18-3.74) K/mm3 Graham # (Auto) 0.58 H (0.24-0.36) K/mm3 Eos # (Auto) 0.20 (0.04-0.36) K/mm3 Baso # (Auto) 0.03 (0.01-0.08) K/mm3 Sodium 138 (136-145) mEq/L Potassium 4.0 (3.5-5.1) mEq/L Chloride 102 (98-107) mEq/L Carbon Dioxide 28 (21-32) mEq/L Anion Gap 12.0 (5-15) BUN 12 (7-18) mg/dL Creatinine 0.6 (0.55-1.02) mg/dL Est Cr Clr Drug Dosing 103.50 mL/min Estimated GFR (MDRD) > 60 (>60) mL/min BUN/Creatinine Ratio 20.0 H (14-18) Glucose 71 L (74-106) mg/dL POC Glucose 357 H (70-105) mg/dL Calcium 8.5 (8.5-10.1) mg/dL C-Reactive Protein 4.3 H* (<1.0) mg/dL 07/20/17 07/20/17 07/20/17 Range/Units 05:43 06:34 11:27 WBC (3.98-10.04) K/mm3 RBC (3.98-5.22) M/mm3 Hgb (11.2-15.7) gm/L Hct (34.1-44.9) % MCV (79.4-94.8) fl MCH (25.6-32.2) pg MCHC (32.2-35.5) g/dl RDW Std Deviation (36.4-46.3) fL Plt Count (182-369) K/mm3 MPV (9.4-12.3) fl Neut % (Auto) (34.0-71.1) % Lymph % (Auto) (19.3-51.7) % Graham % (Auto) (4.7-12.5) % Eos % (Auto) (0.7-5.8) Baso % (Auto) (0.1-1.2) % Neut # (Auto) (1.56-6.13) K/mm3 Lymph # (Auto) (1.18-3.74) K/mm3 Graham # (Auto) (0.24-0.36) K/mm3 Eos # (Auto) (0.04-0.36) K/mm3 Baso # (Auto) (0.01-0.08) K/mm3 Sodium (136-145) mEq/L Potassium (3.5-5.1) mEq/L Chloride (98-107) mEq/L Carbon Dioxide (21-32) mEq/L Anion Gap (5-15) BUN (7-18) mg/dL Creatinine (0.55-1.02) mg/dL Est Cr Clr Drug Dosing mL/min Estimated GFR (MDRD) (>60) mL/min BUN/Creatinine Ratio (14-18) Glucose (74-106) mg/dL POC Glucose 75 101 224 H (70-105) mg/dL Calcium (8.5-10.1) mg/dL C-Reactive Protein (<1.0) mg/dL 07/20/17 Range/Units 17:21 WBC (3.98-10.04) K/mm3 RBC (3.98-5.22) M/mm3 Hgb (11.2-15.7) gm/L Hct (34.1-44.9) % MCV (79.4-94.8) fl MCH (25.6-32.2) pg MCHC (32.2-35.5) g/dl RDW Std Deviation (36.4-46.3) fL Plt Count (182-369) K/mm3 MPV (9.4-12.3) fl Neut % (Auto) (34.0-71.1) % Lymph % (Auto) (19.3-51.7) % Graham % (Auto) (4.7-12.5) % Eos % (Auto) (0.7-5.8) Baso % (Auto) (0.1-1.2) % Neut # (Auto) (1.56-6.13) K/mm3 Lymph # (Auto) (1.18-3.74) K/mm3 Graham # (Auto) (0.24-0.36) K/mm3 Eos # (Auto) (0.04-0.36) K/mm3 Baso # (Auto) (0.01-0.08) K/mm3 Sodium (136-145) mEq/L Potassium (3.5-5.1) mEq/L Chloride (98-107) mEq/L Carbon Dioxide (21-32) mEq/L Anion Gap (5-15) BUN (7-18) mg/dL Creatinine (0.55-1.02) mg/dL Est Cr Clr Drug Dosing mL/min Estimated GFR (MDRD) (>60) mL/min BUN/Creatinine Ratio (14-18) Glucose (74-106) mg/dL POC Glucose 266 H (70-105) mg/dL Calcium (8.5-10.1) mg/dL C-Reactive Protein (<1.0) mg/dL Vince Results Last 24 Hrs: Microbiology 07/18/17 13:00 Gram Stain - Final Wrist, Left Anaerobic Culture - Preliminary Viridans Group Streptococci Med Orders - Current: Current Medications Albuterol/Ipratropium (Duoneb 3.0-0.5 Mg/3 Ml) 3 ml NEB Q4H PRN PRN Reason: Shortness Of Breath/wheezing Aspirin (Ecotrin) 325 mg PO BID [facility] Last Admin: 07/20/17 11:28 Dose: 325 mg Bisacodyl (Dulcolax) 5 mg PO DAILY PRN PRN Reason: Constipation Dextrose/Water (Dextrose 50% In Water) 50 ml IVPUSH ASDIRECTED PRN PRN Reason: Hypoglycemia Diphenhydramine HCl (Benadryl) 25 mg IVPUSH Q6H PRN PRN Reason: Pruritis Docusate Sodium (Colace) 100 mg PO BID PRN PRN Reason: Constipation Hydralazine HCl (Apresoline) 20 mg IVPUSH Q4H PRN PRN Reason: Hypertension Hydromorphone HCl (Dilaudid) 0.5 mg IVPUSH Q2H PRN PRN Reason: Pain Last Admin: 07/20/17 15:11 Dose: 0.5 mg Promethazine HCl 12.5 mg/ (Sodium Chloride) 50.5 mls @ 100 mls/hr IV Q6H PRN PRN Reason: Nausea/Vomiting Vancomycin HCl 1 gm/ Sodium (Chloride) 250 mls @ 250 mls/hr IV Q12H SB Last Admin: 07/20/17 09:11 Dose: 250 mls/hr Ibuprofen (Motrin) 600 mg PO Q6H PRN PRN Reason: Pain Last Admin: 07/19/17 03:05 Dose: 600 mg Insulin Aspart (Novolog) 0 unit SUBCUT QIDACANDBED [facility] PRN Reason: Protocol Last Admin: 07/20/17 12:46 Dose: 4 units Insulin Detemir (Levemir) 13 unit SUBCUT BEDTIME [facility] Last Admin: 07/19/17 22:04 Dose: 13 units Levothyroxine Sodium (Levothyroxine) 112 mcg PO ACBREAKFAST [facility] Last Admin: 07/20/17 11:20 Dose: Not Given Lisinopril (Prinivil) 10 mg PO DAILY [facility] Last Admin: 07/20/17 09:10 Dose: 10 mg Lorazepam (Ativan) 2 mg IVPUSH Q4H PRN PRN Reason: Seizures Lorazepam (Ativan) 1 mg IVPUSH Q12HR PRN PRN Reason: Anxiety Magnesium Sulfate (Pharmacy To Dose - Magnesium Replacement) 0 dose .XX ASDIRECTED PRN PRN Reason: RX TO WATCH MAG LEVELS Metoprolol Tartrate (Lopressor) 5 mg IVPUSH Q4H PRN PRN Reason: Tachycardia Ondansetron HCl (Zofran) 4 mg IV Q6H PRN PRN Reason: Nausea/Vomiting Oxycodone HCl (Oxycodone) 5 - 10 mg PO Q4H PRN PRN Reason: Pain Last Admin: 07/20/17 14:56 Dose: 10 mg Polyethylene Glycol (Miralax) 17 gm PO DAILY PRN PRN Reason: Constipation Potassium Chloride (Pharmacy To Dose - Potassium Replacement) 0 dose .XX ASDIRECTED PRN PRN Reason: RX TO WATCH K LEVELS Senna/Docusate Sodium (Senna Plus) 1 tab PO BID PRN PRN Reason: Constipation Temazepam (Restoril) 15 mg PO BEDTIME PRN PRN Reason: Sleep Last Admin: 07/19/17 02:02 Dose: 15 mg Topiramate (Topamax) 25 mg PO BID [facility] Last Admin: 07/20/17 09:10 Dose: 25 mg Vancomycin HCl (Pharmacy To Dose - Vancomycin) 0 dose .XX ASDIRECTED PRN PRN Reason: RX TO DOSE VANCOMYCIN Discontinued Medications Cefazolin Sodium (Ancef) Confirm Administered Dose 2 gm .ROUTE .STK-MED ONE Stop: 07/18/17 13:11 Fentanyl (Sublimaze) Confirm Administered Dose 250 mcg .ROUTE .STK-MED ONE Stop: 07/18/17 11:55 Fentanyl (Sublimaze) 50 mcg IVPUSH Q5M PRN PRN Reason: Pain Stop: 07/18/17 14:38 Last Admin: 07/18/17 14:51 Dose: 50 mcg Hydromorphone HCl (Dilaudid) 1 mg IM ONETIME ONE Stop: 07/17/17 20:07 Last Admin: 07/17/17 20:10 Dose: 1 mg Hydromorphone HCl (Dilaudid) Confirm Administered Dose 0.5 mg .ROUTE .STK-MED ONE Stop: 07/17/17 23:38 Last Admin: 07/17/17 23:56 Dose: Not Given Hydromorphone HCl (Dilaudid) 0.5 mg IVPUSH Q15M PRN PRN Reason: Pain (severe 7-10) Stop: 07/18/17 14:38 Last Admin: 07/18/17 14:55 Dose: 0.5 mg Vancomycin HCl 1 gm/ Sodium (Chloride) 250 mls @ 100 mls/hr IV BID ONE Stop: 07/18/17 00:15 Last Admin: 07/17/17 23:49 Dose: 100 mls/hr Dextrose/Water (Dextrose 5% In Water) 1,000 mls @ 100 mls/hr IV ASDIRECTED [facility] Last Admin: 07/18/17 06:11 Dose: 100 mls/hr Dextrose/Water (Dextrose 5% In Water) Confirm Administered Dose 1,000 mls @ as directed .ROUTE .STK-MED ONE Stop: 07/18/17 06:05 Last Admin: 07/18/17 08:03 Dose: Not Given Lidocaine HCl (Xylocaine-Mpf 1%) Confirm Administered Dose 4 mls @ as directed .ROUTE .STK-MED ONE Stop: 07/18/17 11:56 Lactated Ringer's (Ringers, Lactated) Confirm Administered Dose 1,000 mls @ as directed .ROUTE .STK-MED ONE Stop: 07/18/17 14:03 Magnesium Sulfate 2 gm/ Premix 50 mls @ 25 mls/hr IV ONETIME ONE Stop: 07/19/17 13:29 Last Admin: 07/19/17 12:12 Dose: 25 mls/hr Insulin Detemir (Levemir) 15 unit SUBCUT ONETIME ONE Stop: 07/17/17 21:57 Last Admin: 07/18/17 02:54 Dose: Not Given Insulin Detemir (Levemir) 15 unit SUBCUT ONETIME ONE Stop: 07/18/17 00:31 Last Admin: 07/18/17 00:24 Dose: Not Given Ketorolac Tromethamine (Toradol) 60 mg IM ONETIME ONE Stop: 07/17/17 20:07 Last Admin: 07/17/17 20:10 Dose: 60 mg Levothyroxine Sodium (Synthroid) 100 mcg PO ACBREAKFAST [facility] Lorazepam (Ativan) 1 mg IV Q6H PRN PRN Reason: Anxiety Last Admin: 07/18/17 23:59 Dose: 1 mg Meperidine HCl (Demerol) 12.5 mg IVPUSH ONETIME PRN PRN Reason: Shivering Stop: 07/18/17 16:00 Midazolam HCl (Versed 1 Mg/Ml) Confirm Administered Dose 2 mg .ROUTE .STK-MED ONE Stop: 07/18/17 11:55 Morphine Sulfate (Morphine) 2 mg IVPUSH Q2H PRN PRN Reason: Pain (moderate 4-6) Ondansetron HCl (Zofran Odt) 4 mg PO Q6H ONE Stop: 07/17/17 21:47 Last Admin: 07/17/17 23:51 Dose: Not Given Ondansetron HCl (Zofran) Confirm Administered Dose 4 mg .ROUTE .STK-MED ONE Stop: 07/18/17 11:56 Ondansetron HCl (Zofran) 4 mg IVPUSH ONETIME PRN PRN Reason: Nausea/Vomiting Stop: 07/18/17 16:00 Oxycodone HCl (Oxycodone) 5 mg PO Q4H PRN PRN Reason: Pain Pneumococcal Polyvalent Vaccine (Pneumovax 23) 0.5 ml IM .ONCE ONE Stop: 07/18/17 03:01 Propofol (Diprivan 20 Ml) Confirm Administered Dose 200 mg .ROUTE .STK-MED ONE Stop: 07/18/17 11:55 Succinylcholine Chloride (Quelicin) Confirm Administered Dose 200 mg .ROUTE .STK -MED ONE Stop: 07/18/17 12:18 - Exam Wound/Incisions: Dressing Dry and Intact General: Alert, Cooperative, No Acute Distress Lungs: Normal Respiratory Effort Extremities: Other (NVS intact for LUE. The pt was able to flex and extend all joints of left hand. Left elbow ROM without concern.) - Problem List Review Problem List Initiated/Reviewed/Updated: Yes - My Orders Last 24 Hours: Active Orders 24 hr Category Date Time Status Ambulate [RC] PER UNIT ROUTINE Care 07/19/17 21:20 Active CIWAA Assessment [RC] Q4HR Care 07/19/17 21:06 Active Consult for Substance Abuse [CONS] Routine Cons 07/20/17 17:35 Active BASIC METABOLIC PANEL,BMP [CHEM] DAILY Lab 07/21/17 05:00 Ordered BASIC METABOLIC PANEL,BMP [CHEM] DAILY Lab 07/22/17 05:00 Ordered BASIC METABOLIC PANEL,BMP [CHEM] DAILY Lab 07/23/17 05:00 Ordered C-REACTIVE PROTEIN [CHEM] DAILY Lab 07/21/17 05:00 Ordered C-REACTIVE PROTEIN [CHEM] DAILY Lab 07/22/17 05:00 Ordered C-REACTIVE PROTEIN [CHEM] DAILY Lab 07/23/17 05:00 Ordered CBC WITH AUTO DIFF [HEME] DAILY Lab 07/21/17 05:00 Ordered CBC WITH AUTO DIFF [HEME] DAILY Lab 07/22/17 05:00 Ordered CBC WITH AUTO DIFF [HEME] DAILY Lab 07/23/17 05:00 Ordered VANCOMYCIN TROUGH [CHEM] Routine Lab 07/20/17 20:30 Ordered Aspirin [Ecotrin] Med 07/20/17 10:45 Active 325 mg PO BID LORazepam [Ativan] Med 07/19/17 19:22 Active 1 mg IVPUSH Q12HR PRN Topiramate [Topamax] Med 07/19/17 21:00 Active 25 mg PO BID Vancomycin Pharmacy to Dose [Pharmacy to Dose - Med 07/20/17 10:40 Active Vancomycin] 0 dose .XX ASDIRECTED PRN Medication Orders Albuterol/Ipratropium (Duoneb 3.0-0.5 Mg/3 Ml) 3 ml NEB Q4H PRN PRN Reason: Shortness Of Breath/wheezing Aspirin (Ecotrin) 325 mg PO BID SB Last Admin: 07/20/17 11:28 Dose: 325 mg Bisacodyl (Dulcolax) 5 mg PO DAILY PRN PRN Reason: Constipation Dextrose/Water (Dextrose 50% In Water) 50 ml IVPUSH ASDIRECTED PRN PRN Reason: Hypoglycemia Diphenhydramine HCl (Benadryl) 25 mg IVPUSH Q6H PRN PRN Reason: Pruritis Docusate Sodium (Colace) 100 mg PO BID PRN PRN Reason: Constipation Hydralazine HCl (Apresoline) 20 mg IVPUSH Q4H PRN PRN Reason: Hypertension Hydromorphone HCl (Dilaudid) 0.5 mg IVPUSH Q2H PRN PRN Reason: Pain Last Admin: 07/20/17 15:11 Dose: 0.5 mg Admin: 07/20/17 12:58 Dose: 0.5 mg Admin: 07/20/17 09:11 Dose: 0.5 mg Admin: 07/20/17 00:26 Dose: 0.5 mg Admin: 07/19/17 22:03 Dose: 0.5 mg Admin: 07/19/17 19:39 Dose: 0.5 mg Admin: 07/19/17 17:32 Dose: 0.5 mg Admin: 07/19/17 14:46 Dose: 0.5 mg Admin: 07/19/17 12:23 Dose: 0.5 mg Admin: 07/19/17 09:40 Dose: 0.5 mg Admin: 07/19/17 07:37 Dose: 0.5 mg Admin: 07/19/17 05:28 Dose: 0.5 mg Admin: 07/19/17 02:02 Dose: 0.5 mg Admin: 07/18/17 23:16 Dose: 0.5 mg Admin: 07/18/17 21:15 Dose: 0.5 mg Admin: 07/18/17 18:22 Dose: 0.5 mg Admin: 07/18/17 16:20 Dose: 0.5 mg Admin: 07/18/17 10:03 Dose: 0.5 mg Admin: 07/18/17 06:17 Dose: 0.5 mg Admin: 07/18/17 03:57 Dose: 0.5 mg Admin: 07/17/17 23:42 Dose: 0.5 mg Promethazine HCl 12.5 mg/ (Sodium Chloride) 50.5 mls @ 100 mls/hr IV Q6H PRN PRN Reason: Nausea/Vomiting Vancomycin HCl 1 gm/ Sodium (Chloride) 250 mls @ 250 mls/hr IV Q12H [facility] Last Admin: 07/20/17 09:11 Dose: 250 mls/hr Infusion: 07/19/17 21:38 Dose: 250 mls/hr Admin: 07/19/17 20:38 Dose: 250 mls/hr Infusion: 07/19/17 10:38 Dose: 250 mls/hr Admin: 07/19/17 09:38 Dose: 250 mls/hr Infusion: 07/18/17 22:15 Dose: 250 mls/hr Admin: 07/18/17 21:15 Dose: 250 mls/hr Infusion: 07/18/17 11:12 Dose: 250 mls/hr Admin: 07/18/17 10:12 Dose: 250 mls/hr Ibuprofen (Motrin) 600 mg PO Q6H PRN PRN Reason: Pain Last Admin: 07/19/17 03:05 Dose: 600 mg Insulin Aspart (Novolog) 0 unit SUBCUT QIDACANDBED [facility] PRN Reason: Protocol Last Admin: 07/20/17 12:46 Dose: 4 units Admin: 07/20/17 11:20 Dose: Not Given Admin: 07/19/17 22:05 Dose: 10 units Admin: 07/19/17 18:10 Dose: 2 units Admin: 07/19/17 12:13 Dose: 2 units Admin: 07/19/17 06:54 Dose: 4 units Admin: 07/18/17 22:02 Dose: Not Given Admin: 07/18/17 17:30 Dose: 2 units Admin: 07/18/17 15:21 Dose: Not Given Admin: 07/18/17 08:03 Dose: Not Given Admin: 07/18/17 00:05 Dose: Not Given Insulin Detemir (Levemir) 13 unit SUBCUT BEDTIME [facility] Last Admin: 07/19/17 22:04 Dose: 13 units Admin: 07/18/17 21:30 Dose: 13 units Levothyroxine Sodium (Levothyroxine) 112 mcg PO ACBREAKFAST [facility] Last Admin: 07/20/17 11:20 Dose: Admin: 07/19/17 05:28 Dose: 112 mcg Admin: 07/18/17 09:29 Dose: 112 mcg Lisinopril (Prinivil) 10 mg PO DAILY [facility] Last Admin: 07/20/17 09:10 Dose: 10 mg Admin: 07/19/17 09:35 Dose: 10 mg Admin: 07/18/17 09:29 Dose: 10 mg Lorazepam (Ativan) 2 mg IVPUSH Q4H PRN PRN Reason: Seizures Lorazepam (Ativan) 1 mg IVPUSH Q12HR PRN PRN Reason: Anxiety Magnesium Sulfate (Pharmacy To Dose - Magnesium Replacement) 0 dose .XX ASDIRECTED PRN PRN Reason: RX TO WATCH MAG LEVELS Metoprolol Tartrate (Lopressor) 5 mg IVPUSH Q4H PRN PRN Reason: Tachycardia Ondansetron HCl (Zofran) 4 mg IV Q6H PRN PRN Reason: Nausea/Vomiting Oxycodone HCl (Oxycodone) 5 - 10 mg PO Q4H PRN PRN Reason: Pain Last Admin: 07/20/17 14:56 Dose: 10 mg Admin: 07/20/17 09:43 Dose: 10 mg Admin: 07/20/17 00:26 Dose: 10 mg Admin: 07/19/17 19:38 Dose: 10 mg Admin: 07/19/17 14:45 Dose: 10 mg Admin: 07/19/17 07:04 Dose: 10 mg Admin: 07/19/17 03:04 Dose: 10 mg Admin: 07/18/17 23:16 Dose: 10 mg Admin: 07/18/17 18:00 Dose: 10 mg Admin: 07/18/17 09:34 Dose: 10 mg Admin: 07/18/17 00:20 Dose: 10 mg Polyethylene Glycol (Miralax) 17 gm PO DAILY PRN PRN Reason: Constipation Potassium Chloride (Pharmacy To Dose - Potassium Replacement) 0 dose .XX ASDIRECTED PRN PRN Reason: RX TO WATCH K LEVELS Senna/Docusate Sodium (Senna Plus) 1 tab PO BID PRN PRN Reason: Constipation Temazepam (Restoril) 15 mg PO BEDTIME PRN PRN Reason: Sleep Last Admin: 07/19/17 02:02 Dose: 15 mg Topiramate (Topamax) 25 mg PO BID [facility] Last Admin: 07/20/17 09:10 Dose: 25 mg Admin: 07/19/17 20:39 Dose: 25 mg Vancomycin HCl (Pharmacy To Dose - Vancomycin) 0 dose .XX ASDIRECTED PRN PRN Reason: RX TO DOSE VANCOMYCIN - Assessment Assessment (Free Text/Narrative):: POD#2 - left wrist I&D - Plan Plan (Free Text/Narrative):: 1. Continue with IV antibiotic per PICC. Strep species noted with culture and sensitive to vanc. 2. Discharge to a facility in [place] for continued IV antibiotic x 2 wks total and then will likely be able to transition to PO medication. 3. Medical management per Hospitalist service. 4. Chemical dependency eval has been suggested by Dr. Giraldo with psychiatry services and this has been ordered. 5. SCDs, TEDs, frequent mobility and 325mg ASA BID for VTE prophylaxis. The pt's case was discussed with Dr. Melgar.
[2017-07-20] MEDS ORDERED: Insulin Detemir 100 Units/ML 3 ML Pen SUBCUT SCH (19:10)
[2017-07-20] MEDS: diphenhydrAMINE 50 MG/ML SDV IVPUSH PRN (20:04)
[2017-07-21] MEDS: oxyCODONE 5 MG Tab PO PRN ×5 (00:16→20:20)
[2017-07-21] MEDS: HYDROmorphone 0.5 MG/0.5 ML Syringe IVPUSH PRN ×10 (02:18→22:28)
[2017-07-21] MEDS: diphenhydrAMINE 50 MG/ML SDV IVPUSH PRN (02:23)
[2017-07-21] MEDS: Levothyroxine 112 MCG Tab PO SCH (06:40)
[2017-07-21] MEDS: Insulin Aspart 100 Units/ML 3 ML Pen SUBCUT SCH ×5 (06:40→22:37)
--- NOTE | 2017-07-21 07:01 | PCM.CONSN ---
- General Info Date of Service: 07/21/17 Admission Dx/Problem (Free Text): Upper Distal Extremity Cellulitis with Abscess Patient seen this morning, resting in bed. Left arm elevated on pillows with ice in place, dressing CDI. Continues to complain of "severe pain". Pain continues to be a concern for patient and I continue to have concerns that patient is drug seeking as pain seems to be out of proportion to expected course of illness/procedure. Functional Status: Reports: Tolerating Diet, Ambulating, Urinating - Review of Systems General: Denies: Fever HEENT: Reports: No Symptoms Pulmonary: Reports: No Symptoms Cardiovascular: Reports: No Symptoms Gastrointestinal: Reports: No Symptoms Genitourinary: Reports: No Symptoms Musculoskeletal: Reports: Arm Pain, Hand Pain Skin: Reports: Other (dressing ) Neurological: Reports: No Symptoms Psychiatric: Reports: Mood Lability, Anxiety - Patient Data Vitals - Most Recent: Last Vital Signs Temp 98.2 F 07/21/17 00:15 Pulse 69 07/21/17 00:15 Resp 14 07/21/17 00:15 BP 120/70 07/21/17 00:16 Pulse Ox 97 07/21/17 00:15 Weight - Most Recent: 139 lb 6.4 oz I&O - Last 24 Hours: Intake & Output 07/20/17 07/21/17 07/21/17 22:59 06:59 14:59 Intake Total 750 930 Output Total 750 1800 Balance 0 -870 Lab Results Last 24 Hours: Laboratory Results - last 24 hr 07/20/17 07/20/17 07/20/17 Range/Units 05:25 05:25 11:27 WBC 5.76 (3.98-10.04) K/mm3 RBC 4.20 (3.98-5.22) M/mm3 Hgb 11.5 (11.2-15.7) gm/L Hct 35.1 (34.1-44.9) % MCV 83.6 (79.4-94.8) fl MCH 27.4 (25.6-32.2) pg MCHC 32.8 (32.2-35.5) g/dl RDW Std Deviation 42.0 (36.4-46.3) fL Plt Count 231 (182-369) K/mm3 MPV 10.5 (9.4-12.3) fl Neut % (Auto) 61.6 (34.0-71.1) % Lymph % (Auto) 24.0 (19.3-51.7) % [place] % (Auto) 10.1 (4.7-12.5) % Eos % (Auto) 3.5 (0.7-5.8) Baso % (Auto) 0.5 (0.1-1.2) % Neut # (Auto) 3.55 (1.56-6.13) K/mm3 Lymph # (Auto) 1.38 (1.18-3.74) K/mm3 [place] # (Auto) 0.58 H (0.24-0.36) K/mm3 Eos # (Auto) 0.20 (0.04-0.36) K/mm3 Baso # (Auto) 0.03 (0.01-0.08) K/mm3 Sodium 138 (136-145) mEq/L Potassium 4.0 (3.5-5.1) mEq/L Chloride 102 (98-107) mEq/L Carbon Dioxide 28 (21-32) mEq/L Anion Gap 12.0 (5-15) BUN 12 (7-18) mg/dL Creatinine 0.6 (0.55-1.02) mg/dL Est Cr Clr Drug Dosing 103.50 mL/min Estimated GFR (MDRD) > 60 (>60) mL/min BUN/Creatinine Ratio 20.0 H (14-18) Glucose 71 L (74-106) mg/dL POC Glucose 224 H (70-105) mg/dL Calcium 8.5 (8.5-10.1) mg/dL C-Reactive Protein 4.3 H* (<1.0) mg/dL Vancomycin Trough (10.0-20.0) 07/20/17 07/20/17 07/20/17 Range/Units 17:21 20:30 21:26 WBC (3.98-10.04) K/mm3 RBC (3.98-5.22) M/mm3 Hgb (11.2-15.7) gm/L Hct (34.1-44.9) % MCV (79.4-94.8) fl MCH (25.6-32.2) pg MCHC (32.2-35.5) g/dl RDW Std Deviation (36.4-46.3) fL Plt Count (182-369) K/mm3 MPV (9.4-12.3) fl Neut % (Auto) (34.0-71.1) % Lymph % (Auto) (19.3-51.7) % [place] % (Auto) (4.7-12.5) % Eos % (Auto) (0.7-5.8) Baso % (Auto) (0.1-1.2) % Neut # (Auto) (1.56-6.13) K/mm3 Lymph # (Auto) (1.18-3.74) K/mm3 [place] # (Auto) (0.24-0.36) K/mm3 Eos # (Auto) (0.04-0.36) K/mm3 Baso # (Auto) (0.01-0.08) K/mm3 Sodium (136-145) mEq/L Potassium (3.5-5.1) mEq/L Chloride (98-107) mEq/L Carbon Dioxide (21-32) mEq/L Anion Gap (5-15) BUN (7-18) mg/dL Creatinine (0.55-1.02) mg/dL Est Cr Clr Drug Dosing mL/min Estimated GFR (MDRD) (>60) mL/min BUN/Creatinine Ratio (14-18) Glucose (74-106) mg/dL POC Glucose 266 H 297 H (70-105) mg/dL Calcium (8.5-10.1) mg/dL C-Reactive Protein (<1.0) mg/dL Vancomycin Trough 5.7 L (10.0-20.0) 07/21/17 07/21/17 Range/Units 05:57 06:06 WBC 4.86 (3.98-10.04) K/mm3 RBC 4.20 (3.98-5.22) M/mm3 Hgb 11.4 (11.2-15.7) gm/L Hct 34.8 (34.1-44.9) % MCV 82.9 (79.4-94.8) fl MCH 27.1 (25.6-32.2) pg MCHC 32.8 (32.2-35.5) g/dl RDW Std Deviation 40.9 (36.4-46.3) fL Plt Count 235 (182-369) K/mm3 MPV 10.3 (9.4-12.3) fl Neut % (Auto) 38.6 (34.0-71.1) % Lymph % (Auto) 41.2 (19.3-51.7) % [place] % (Auto) 12.8 H (4.7-12.5) % Eos % (Auto) 6.2 H (0.7-5.8) Baso % (Auto) 0.8 (0.1-1.2) % Neut # (Auto) 1.88 (1.56-6.13) K/mm3 Lymph # (Auto) 2.00 (1.18-3.74) K/mm3 [place] # (Auto) 0.62 H (0.24-0.36) K/mm3 Eos # (Auto) 0.30 (0.04-0.36) K/mm3 Baso # (Auto) 0.04 (0.01-0.08) K/mm3 Sodium (136-145) mEq/L Potassium (3.5-5.1) mEq/L Chloride (98-107) mEq/L Carbon Dioxide (21-32) mEq/L Anion Gap (5-15) BUN (7-18) mg/dL Creatinine (0.55-1.02) mg/dL Est Cr Clr Drug Dosing mL/min Estimated GFR (MDRD) (>60) mL/min BUN/Creatinine Ratio (14-18) Glucose (74-106) mg/dL POC Glucose 324 H (70-105) mg/dL Calcium (8.5-10.1) mg/dL C-Reactive Protein (<1.0) mg/dL Vancomycin Trough (10.0-20.0) Vince Results Last 24 Hours: Microbiology 07/18/17 13:00 Gram Stain - Final Wrist, Left Anaerobic Culture - Preliminary Viridans Group Streptococci Med Orders - Current: Current Medications Albuterol/Ipratropium (Duoneb 3.0-0.5 Mg/3 Ml) 3 ml NEB Q4H PRN PRN Reason: Shortness Of Breath/wheezing Aspirin (Ecotrin) 325 mg PO BID SB Last Admin: 07/20/17 20:05 Dose: 325 mg Bisacodyl (Dulcolax) 5 mg PO DAILY PRN PRN Reason: Constipation Dextrose/Water (Dextrose 50% In Water) 50 ml IVPUSH ASDIRECTED PRN PRN Reason: Hypoglycemia Diphenhydramine HCl (Benadryl) 25 mg IVPUSH Q6H PRN PRN Reason: Pruritis Last Admin: 07/21/17 02:23 Dose: 25 mg Docusate Sodium (Colace) 100 mg PO BID PRN PRN Reason: Constipation Hydralazine HCl (Apresoline) 20 mg IVPUSH Q4H PRN PRN Reason: Hypertension Hydromorphone HCl (Dilaudid) 0.5 mg IVPUSH Q2H PRN PRN Reason: Pain Last Admin: 07/21/17 05:02 Dose: 0.5 mg Promethazine HCl 12.5 mg/ (Sodium Chloride) 50.5 mls @ 100 mls/hr IV Q6H PRN PRN Reason: Nausea/Vomiting Vancomycin HCl 1 gm/ Sodium (Chloride) 250 mls @ 250 mls/hr IV Q8H [facility] Last Admin: 07/21/17 06:40 Dose: 250 mls/hr Ibuprofen (Motrin) 600 mg PO Q6H PRN PRN Reason: Pain Last Admin: 07/19/17 03:05 Dose: 600 mg Insulin Aspart (Novolog) 0 unit SUBCUT QIDACANDBED [facility] PRN Reason: Protocol Last Admin: 07/21/17 06:40 Dose: 12 units Insulin Detemir (Levemir) 15 unit SUBCUT BEDTIME [facility] Last Admin: 07/20/17 20:05 Dose: 15 units Levothyroxine Sodium (Levothyroxine) 112 mcg PO ACBREAKFAST [facility] Last Admin: 07/21/17 06:40 Dose: 112 mcg Lisinopril (Prinivil) 10 mg PO DAILY [facility] Last Admin: 07/20/17 09:10 Dose: 10 mg Lorazepam (Ativan) 2 mg IVPUSH Q4H PRN PRN Reason: Seizures Lorazepam (Ativan) 1 mg IVPUSH Q12HR PRN PRN Reason: Anxiety Magnesium Sulfate (Pharmacy To Dose - Magnesium Replacement) 0 dose .XX ASDIRECTED PRN PRN Reason: RX TO WATCH MAG LEVELS Metoprolol Tartrate (Lopressor) 5 mg IVPUSH Q4H PRN PRN Reason: Tachycardia Ondansetron HCl (Zofran) 4 mg IV Q6H PRN PRN Reason: Nausea/Vomiting Oxycodone HCl (Oxycodone) 5 - 10 mg PO Q4H PRN PRN Reason: Pain Last Admin: 07/21/17 04:54 Dose: 10 mg Polyethylene Glycol (Miralax) 17 gm PO DAILY PRN PRN Reason: Constipation Potassium Chloride (Pharmacy To Dose - Potassium Replacement) 0 dose .XX ASDIRECTED PRN PRN Reason: RX TO WATCH K LEVELS Senna/Docusate Sodium (Senna Plus) 1 tab PO BID PRN PRN Reason: Constipation Temazepam (Restoril) 15 mg PO BEDTIME PRN PRN Reason: Sleep Last Admin: 07/19/17 02:02 Dose: 15 mg Topiramate (Topamax) 25 mg PO BID SB Last Admin: 07/20/17 20:05 Dose: 25 mg Vancomycin HCl (Pharmacy To Dose - Vancomycin) 0 dose .XX ASDIRECTED PRN PRN Reason: RX TO DOSE VANCOMYCIN Discontinued Medications Cefazolin Sodium (Ancef) Confirm Administered Dose 2 gm .ROUTE .STK-MED ONE Stop: 07/18/17 13:11 Fentanyl (Sublimaze) Confirm Administered Dose 250 mcg .ROUTE .STK-MED ONE Stop: 07/18/17 11:55 Fentanyl (Sublimaze) 50 mcg IVPUSH Q5M PRN PRN Reason: Pain Stop: 07/18/17 14:38 Last Admin: 07/18/17 14:51 Dose: 50 mcg Hydromorphone HCl (Dilaudid) 1 mg IM ONETIME ONE Stop: 07/17/17 20:07 Last Admin: 07/17/17 20:10 Dose: 1 mg Hydromorphone HCl (Dilaudid) Confirm Administered Dose 0.5 mg .ROUTE .STK-MED ONE Stop: 07/17/17 23:38 Last Admin: 07/17/17 23:56 Dose: Not Given Hydromorphone HCl (Dilaudid) 0.5 mg IVPUSH Q15M PRN PRN Reason: Pain (severe 7-10) Stop: 07/18/17 14:38 Last Admin: 07/18/17 14:55 Dose: 0.5 mg Vancomycin HCl 1 gm/ Sodium (Chloride) 250 mls @ 100 mls/hr IV BID ONE Stop: 07/18/17 00:15 Last Admin: 07/17/17 23:49 Dose: 100 mls/hr Dextrose/Water (Dextrose 5% In Water) 1,000 mls @ 100 mls/hr IV ASDIRECTED [facility] Last Admin: 07/18/17 06:11 Dose: 100 mls/hr Dextrose/Water (Dextrose 5% In Water) Confirm Administered Dose 1,000 mls @ as directed .ROUTE .STK-MED ONE Stop: 07/18/17 06:05 Last Admin: 07/18/17 08:03 Dose: Not Given Vancomycin HCl 1 gm/ Sodium (Chloride) 250 mls @ 250 mls/hr IV Q12H [facility] Last Admin: 07/21/17 00:06 Dose: Not Given Lidocaine HCl (Xylocaine-Mpf 1%) Confirm Administered Dose 4 mls @ as directed .ROUTE .STK-MED ONE Stop: 07/18/17 11:56 Lactated Ringer's (Ringers, Lactated) Confirm Administered Dose 1,000 mls @ as directed .ROUTE .STK-MED ONE Stop: 07/18/17 14:03 Magnesium Sulfate 2 gm/ Premix 50 mls @ 25 mls/hr IV ONETIME ONE Stop: 07/19/17 13:29 Last Admin: 07/19/17 12:12 Dose: 25 mls/hr Insulin Detemir (Levemir) 13 unit SUBCUT BEDTIME [facility] Last Admin: 07/19/17 22:04 Dose: 13 units Insulin Detemir (Levemir) 15 unit SUBCUT ONETIME ONE Stop: 07/17/17 21:57 Last Admin: 07/18/17 02:54 Dose: Not Given Insulin Detemir (Levemir) 15 unit SUBCUT ONETIME ONE Stop: 07/18/17 00:31 Last Admin: 07/18/17 00:24 Dose: Not Given Ketorolac Tromethamine (Toradol) 60 mg IM ONETIME ONE Stop: 07/17/17 20:07 Last Admin: 07/17/17 20:10 Dose: 60 mg Levothyroxine Sodium (Synthroid) 100 mcg PO ACBREAKFAST [facility] Lorazepam (Ativan) 1 mg IV Q6H PRN PRN Reason: Anxiety Last Admin: 07/18/17 23:59 Dose: 1 mg Meperidine HCl (Demerol) 12.5 mg IVPUSH ONETIME PRN PRN Reason: Shivering Stop: 07/18/17 16:00 Midazolam HCl (Versed 1 Mg/Ml) Confirm Administered Dose 2 mg .ROUTE .STK-MED ONE Stop: 07/18/17 11:55 Morphine Sulfate (Morphine) 2 mg IVPUSH Q2H PRN PRN Reason: Pain (moderate 4-6) Ondansetron HCl (Zofran Odt) 4 mg PO Q6H ONE Stop: 07/17/17 21:47 Last Admin: 07/17/17 23:51 Dose: Not Given Ondansetron HCl (Zofran) Confirm Administered Dose 4 mg .ROUTE .STK-MED ONE Stop: 07/18/17 11:56 Ondansetron HCl (Zofran) 4 mg IVPUSH ONETIME PRN PRN Reason: Nausea/Vomiting Stop: 07/18/17 16:00 Oxycodone HCl (Oxycodone) 5 mg PO Q4H PRN PRN Reason: Pain Pneumococcal Polyvalent Vaccine (Pneumovax 23) 0.5 ml IM .ONCE ONE Stop: 07/18/17 03:01 Propofol (Diprivan 20 Ml) Confirm Administered Dose 200 mg .ROUTE .STK-MED ONE Stop: 07/18/17 11:55 Succinylcholine Chloride (Quelicin) Confirm Administered Dose 200 mg .ROUTE .STK -MED ONE Stop: 07/18/17 12:18 - Exam Quality Assessment: Central Line/PICC, DVT Prophylaxis General: Alert, Oriented, No Acute Distress HEENT: Pupils Equal, Pupils Reactive, EOMI, Mucous Membr. Moist/[place] Neck: Supple Lungs: Clear to Auscultation, Normal Respiratory Effort, Decreased Breath Sounds (bases) Cardiovascular: Regular Rate, Regular Rhythm GI/Abdominal Exam: Normal Bowel Sounds, Soft, Non-Tender (Female) Exam: Deferred Extremities: Normal Capillary Refill, Other (dressing CDI to lt arm/hand, swelling improved to fingers) Wound/Incisions: Dressing Dry and Intact Neurological: No New Focal Deficit Psy/Mental Status: Alert, Anxious Consult PN Assessment/Plan POD#: 3 (1) Diabetes SNOMED Code(s): 57779065 Code(s): E11.9 - TYPE 2 DIABETES MELLITUS WITHOUT COMPLICATIONS Priority: High Current Visit: Yes Qualifiers: Diabetes mellitus type: type 2 Diabetes mellitus complication status: with skin complications Diabetes mellitus complication detail: with other skin complication (2) Abscess SNOMED Code(s): 524988082 Code(s): L02.91 - CUTANEOUS ABSCESS, UNSPECIFIED Priority: High Current Visit: Yes (3) Ecchymosis of wrist SNOMED Code(s): 88176941 Code(s): S60.219A - CONTUSION OF UNSPECIFIED WRIST, INITIAL ENCOUNTER Priority: High Current Visit: Yes Problem List Initiated/Reviewed/Updated: Yes My Orders Last 24 Hours: My Active Orders 07/21/17 05:57 BASIC METABOLIC PANEL,BMP [CHEM] DAILY C-REACTIVE PROTEIN [CHEM] DAILY 07/22/17 05:00 BASIC METABOLIC PANEL,BMP [CHEM] DAILY C-REACTIVE PROTEIN [CHEM] DAILY CBC WITH AUTO DIFF [HEME] DAILY 07/23/17 05:00 BASIC METABOLIC PANEL,BMP [CHEM] DAILY C-REACTIVE PROTEIN [CHEM] DAILY CBC WITH AUTO DIFF [HEME] DAILY Plan: I/P: Cellulitis with abscess to left hand/wrist -Orthopedics following- I&D -Cultures returned- strep viridians -Pain is out of proportion to what is expected; strongly suspect drug seeking behavior Diabetes -AC/HS accuchecks with SSI -Lantus--sugars increasing, 300's this am, will increase lantus dose -A1C 10.8; noncompliant with medical care/follow up, no PCP that she can identify locally in [place] where she resides -CDE -Eligibility Consultant consult -Lisinopril for renal protection -Lipid panel -Urine microalbumin -Recommend eye exam Hypothyroidism -TSH elevated >30 -Noncompliance with taking medication- admits to this -Levothyroxine daily Medical noncompliance- as above with DM and thyroid disease Other: GI/DVT prophylax CM/SW for assist with DC plan, may need Vibra for mcfp abx therapy and wound care, pending cultures and need for wound care pending Ortho/primary attending recommendations. Patient is Full Code status.
[2017-07-21] MEDS: Aspirin 325 MG Tab.EC PO SCH ×2 (09:32→20:20)
[2017-07-21] MEDS: Lisinopril 10 MG Tab PO SCH (09:32)
[2017-07-21] MEDS: Topiramate 25 MG Tab PO SCH ×2 (09:33→20:21)
[2017-07-21] MEDS: Ibuprofen 600 MG Tab PO PRN (20:20)
[2017-07-21] MEDS ORDERED: Insulin Detemir 100 Units/ML 3 ML Pen SUBCUT SCH (21:00)
[2017-07-22] MEDS: HYDROmorphone 0.5 MG/0.5 ML Syringe IVPUSH PRN ×5 (01:25→11:55)
[2017-07-22] MEDS: diphenhydrAMINE 50 MG/ML SDV IVPUSH PRN (01:29)
[2017-07-22] MEDS: oxyCODONE 5 MG Tab PO PRN ×3 (01:33→09:53)
--- NOTE | 2017-07-22 02:52 | CONS ---
CONSULTING PHYSICIAN: Rick Hill LAC DATE OF CONSULTATION: 07/22/2017 TIME: 01:30 a.m. The patient is a 37-year-old female, who was admitted to [facility] ICU on 07/17/2017 and alcohol and drug evaluation was requested by her medical treatment team. SOURCE OF INFORMATION: Hospital records, self report, background research, and prescription drug monitoring report. HISTORY OF PRESENT ILLNESS: The patient presents to [facility] from [facility] with upper distal extremity cellulitis with abscess. She states that the pain and swelling suddenly started in her elbow and radiated down to her wrist. Her lab reports indicate that she was also positive for THC and barbiturates. The patient reports that she has a medical marijuana card for chronic pain and does not know why barbiturate showed up in her lab reports. She could only explain that she takes Xanax; however, Xanax is a benzodiazepine and would not show up as a barbiturate. She is denying IV drug use as well. SOCIAL HISTORY: The patient was raised in [place], [place] primarily by her mother. Her parents were when she was 6 years old. She has 3 brothers and 1 sister and she is the 4th child. The patient did not graduate from high school, but got her GED. She was 1st at approximately 21 years old and the marriage lasted 10 years. She had 1 child as a result of that union and the child lives with the father. She has been in another relationship for the past approximately 10 years. However, he is currently in shelter on a methamphetamine charge. According to the patient, he will be released soon and she is anticipating that they have 3 children together who are currently living with the patient's mother. It seems that there may be some social service involvement; however, it is unclear from self report and the patient becomes agitated in speaking about her children. The patient is currently living in [place] and is unemployed. SUBSTANCE ABUSE HISTORY: The patient is reluctant to provide self report, refused to sign a consent to speak to any family member, and refused to provide the name of her primary care physician. However, she did offer minimal self report. Tobacco, the patient reports that she started smoking at age 17 and currently smokes half pack a day. Alcohol, the patient reports that her mother and father are both alcoholics and she rarely drinks. Cannabis, the patient reports that the members of her family smoked cannabis and she has a current medical marijuana card for chronic pain that began after she was diagnosed with scoliosis at age 20. She states she has 2 metal rods in her back and that she is in constant pain. She does not provide information regarding her prescribing physician, method of administration, dosage in frequencies. The patient does report that she began smoking pot while in high school and her siblings smoke cannabis. Opiates, the patient reports that at age 20, she had back surgery and was prescribed Percocet for approximately a month and then she was put on a low-dose oxycodone for several months. She states she quit because her brother was an opiate addict and she did not want to be like him. She does admit that she in fact is like her brother currently. She states that she did not take opiates until age 31 when she started to have severe pain again. Then, she began maladaptive use of opiates, again primarily oxycodone. She used until she was 4 months with her last child in 2013, when she was put on Subutex to avoid opiate addiction in her baby. Her child was born with an opiate addiction and went through withdrawals. The state intervened when the child demonstrated a failure to thrive. She states that she was not getting the pain relief from Subutex that she needed, so her doctor prescribed her oxycodone 15 mg 6 per day. She states her dosage kept increasing to 20 mg and then to 30 mg 6 times a day as she has a very high tolerance. When asked if she used opiates through her pregnancies, she denied that in her 1st 3 children with the exception of beginning to use after the child was born. She reports that recently she and her doctor were "having differences"and she found a new doctor who put her on oxycodone 30s 4 times a day and then weaned her down to oxycodone 20s 4 times a day. She states that is her current usage. She has been augmenting her pain killers with medical marijuana as well as Xanax and Klonopin. She states she is currently prescribed 0.5 mg of Xanax 2 times daily and 2 mg of Klonopin daily. Methamphetamine, the patient reports that she has used methamphetamine with her in the past, but she states that she quit when he went to shelter on a meth charge. She does not deny the continued use, once her is out of shelter may be an option for her. She is not forthcoming on frequency or amounts of use. She does admit that she has been in substance abuse treatment several times in the past. DSM 5 CRITERIA: The patient meets DSM-5 criteria for the following diagnoses: 1. F17.200, tobacco use disorder, severe. 2. F12.20, cannabis use disorder, severe. 3. F11.20, opioid use disorder, severe. 4. F15.20, amphetamine use disorder severe, methamphetamine type. 5. 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 ASAM DIMENSIONS: Dimension 1: Score 2. The patient has difficulty tolerating and coping with withdrawal discomfort, however, she has not been off opiates long enough to suffer withdrawal. Severe withdrawal could be anticipated with abrupt cessation of opiates. Dimension 2: Score 2. The patient has physical problems and neglect care including diabetes type 1 and thyroid problems. Dimension 3: Score 2. The patient is reporting to Dr. Giraldo that she is having anxiety and depression. However, she seems to feel that it may be situational. She appears to have some difficulty functioning in significant life areas but is able to participate in most treatment activities. Dimension 4: Score 4. The patient is minimally cooperative, is not amenable to treatment and has little to no awareness of her addiction and is unwilling to explore change or in total denial. Dimension 5: Score 3+. The patient has little recognition and understanding of relapse and recidivism issues and displays high vulnerability for further substance use or mental health issues. Dimension 6: Score 3+. The patient is not engaged in structured meaningful activity, has little social support. There is legal system involvement and her significant other is a methamphetamine user. ASSESSMENT SUMMARY: The patient appears to be a young woman who has a biologically driven addiction to poly substances, cannabis, opiates, methamphetamine, nicotine, and a rule out for sedative hypnotic and anxiolytic dependence. She has been involved with maladaptive substance use since she was a teenager and it now appears that her primary drug of choice is opiates. She is demonstrating behavior consistent with opiate use disorder severe, drug-seeking behavior, and willingness to disclose physician information, and appearance of doctor shopping, very high tolerance, defensive behavior and perceived inability to function without narcotics. In consulting with Dr. Riddhi, the patient's reported level of pain does not appear to be proportionate to the procedure. She is also using medical marijuana for pain which confuses the need for opiates. The patient is quite guarded in her self report and caution should be taken with regard to continued opiate prescribing. RECOMMENDATIONS: The patient meets ASAM criteria for a level 3.5, clinically managed medium intensity residential treatment. However, the patient is unamenable to voluntarily be admitted to a substance abuse treatment program with a limited self report and collateral information available. The patient does not meet eminent danger criteria requiring a petition for involuntary commitment. The patient's medical treatment team should be advised that the patient is polysubstance dependent with opiates, her primary drug of choice. Consideration of weaning to discontinuation of opiates is recommended. The patient's medical marijuana use may assist with the patient's pain and withdrawal symptoms during the weaning process. The patient was offered information regarding area treatment programs as well as [facility] diagnosis program. ISIAAH /[id number]
[2017-07-22] MEDS: Levothyroxine 112 MCG Tab PO SCH (06:06)
[2017-07-22] MEDS: Aspirin 325 MG Tab.EC PO SCH (09:52)
[2017-07-22] MEDS: Lisinopril 10 MG Tab PO SCH (09:53)
[2017-07-22 09:55] VITALS: BP 125/85
[2017-07-22] MEDS: Insulin Aspart 100 Units/ML 3 ML Pen SUBCUT SCH ×3 (09:55→10:57)
[2017-07-22] MEDS: Topiramate 25 MG Tab PO SCH (10:00)
--- NOTE | 2017-07-22 10:14 | PCM.SURGPN ---
- General Info Date of Service: 07/22/17 POD#: 4 Functional Status: Reports: Pain Controlled, Tolerating Diet, Ambulating, Urinating - Review of Systems Musculoskeletal: Reports: Other (The pt has been active in her room.) - Patient Data Vitals - Most Recent: Last Vital Signs Temp 97.5 F 07/22/17 04:05 Pulse 61 07/22/17 04:05 Resp 14 07/22/17 04:05 BP 125/85 07/22/17 09:53 Pulse Ox 99 07/22/17 04:05 Weight - Most Recent: 138 lb I&O - Last 24 Hours: Intake & Output 07/21/17 07/22/17 07/22/17 22:59 06:59 14:59 Intake Total 1410 625 Output Total 1900 950 Balance -490 -325 Lab Results Last 24 Hrs: Laboratory Results - last 24 hr 07/21/17 07/21/17 07/21/17 Range/Units 11:46 17:13 20:25 WBC (3.98-10.04) K/mm3 RBC (3.98-5.22) M/mm3 Hgb (11.2-15.7) gm/L Hct (34.1-44.9) % MCV (79.4-94.8) fl MCH (25.6-32.2) pg MCHC (32.2-35.5) g/dl RDW Std Deviation (36.4-46.3) fL Plt Count (182-369) K/mm3 MPV (9.4-12.3) fl Neut % (Auto) (34.0-71.1) % Lymph % (Auto) (19.3-51.7) % Phillips % (Auto) (4.7-12.5) % Eos % (Auto) (0.7-5.8) Baso % (Auto) (0.1-1.2) % Neut # (Auto) (1.56-6.13) K/mm3 Lymph # (Auto) (1.18-3.74) K/mm3 Phillips # (Auto) (0.24-0.36) K/mm3 Eos # (Auto) (0.04-0.36) K/mm3 Baso # (Auto) (0.01-0.08) K/mm3 Sodium (136-145) mEq/L Potassium (3.5-5.1) mEq/L Chloride (98-107) mEq/L Carbon Dioxide (21-32) mEq/L Anion Gap (5-15) BUN (7-18) mg/dL Creatinine (0.55-1.02) mg/dL Est Cr Clr Drug Dosing mL/min Estimated GFR (MDRD) (>60) mL/min BUN/Creatinine Ratio (14-18) Glucose (74-106) mg/dL POC Glucose 102 193 H 299 H (70-105) mg/dL Calcium (8.5-10.1) mg/dL C-Reactive Protein (<1.0) mg/dL Vancomycin Trough (10.0-20.0) 07/22/17 07/22/17 07/22/17 Range/Units 06:08 06:08 06:08 WBC 5.09 (3.98-10.04) K/mm3 RBC 4.43 (3.98-5.22) M/mm3 Hgb 12.1 (11.2-15.7) gm/L Hct 36.0 (34.1-44.9) % MCV 81.3 (79.4-94.8) fl MCH 27.3 (25.6-32.2) pg MCHC 33.6 (32.2-35.5) g/dl RDW Std Deviation 40.2 (36.4-46.3) fL Plt Count 251 (182-369) K/mm3 MPV 10.1 (9.4-12.3) fl Neut % (Auto) 37.9 (34.0-71.1) % Lymph % (Auto) 40.1 (19.3-51.7) % Phillips % (Auto) 13.9 H (4.7-12.5) % Eos % (Auto) 7.1 H (0.7-5.8) Baso % (Auto) 0.8 (0.1-1.2) % Neut # (Auto) 1.93 (1.56-6.13) K/mm3 Lymph # (Auto) 2.04 (1.18-3.74) K/mm3 Phillips # (Auto) 0.71 H (0.24-0.36) K/mm3 Eos # (Auto) 0.36 (0.04-0.36) K/mm3 Baso # (Auto) 0.04 (0.01-0.08) K/mm3 Sodium 137 (136-145) mEq/L Potassium 4.1 (3.5-5.1) mEq/L Chloride 103 (98-107) mEq/L Carbon Dioxide 27 (21-32) mEq/L Anion Gap 11.1 (5-15) BUN 19 H (7-18) mg/dL Creatinine 0.6 (0.55-1.02) mg/dL Est Cr Clr Drug Dosing 103.50 mL/min Estimated GFR (MDRD) > 60 (>60) mL/min BUN/Creatinine Ratio 31.7 H (14-18) Glucose 263 H (74-106) mg/dL POC Glucose (70-105) mg/dL Calcium 8.7 (8.5-10.1) mg/dL C-Reactive Protein 2.1 H* (<1.0) mg/dL Vancomycin Trough 14.7 (10.0-20.0) 07/22/17 Range/Units 06:10 WBC (3.98-10.04) K/mm3 RBC (3.98-5.22) M/mm3 Hgb (11.2-15.7) gm/L Hct (34.1-44.9) % MCV (79.4-94.8) fl MCH (25.6-32.2) pg MCHC (32.2-35.5) g/dl RDW Std Deviation (36.4-46.3) fL Plt Count (182-369) K/mm3 MPV (9.4-12.3) fl Neut % (Auto) (34.0-71.1) % Lymph % (Auto) (19.3-51.7) % Phillips % (Auto) (4.7-12.5) % Eos % (Auto) (0.7-5.8) Baso % (Auto) (0.1-1.2) % Neut # (Auto) (1.56-6.13) K/mm3 Lymph # (Auto) (1.18-3.74) K/mm3 Phillips # (Auto) (0.24-0.36) K/mm3 Eos # (Auto) (0.04-0.36) K/mm3 Baso # (Auto) (0.01-0.08) K/mm3 Sodium (136-145) mEq/L Potassium (3.5-5.1) mEq/L Chloride (98-107) mEq/L Carbon Dioxide (21-32) mEq/L Anion Gap (5-15) BUN (7-18) mg/dL Creatinine (0.55-1.02) mg/dL Est Cr Clr Drug Dosing mL/min Estimated GFR (MDRD) (>60) mL/min BUN/Creatinine Ratio (14-18) Glucose (74-106) mg/dL POC Glucose 271 H (70-105) mg/dL Calcium (8.5-10.1) mg/dL C-Reactive Protein (<1.0) mg/dL Vancomycin Trough (10.0-20.0) Vince Results Last 24 Hrs: Microbiology 07/18/17 13:00 Gram Stain - Final Wrist, Left Anaerobic Culture - Final Streptococcus Intermedius Med Orders - Current: Current Medications Albuterol/Ipratropium (Duoneb 3.0-0.5 Mg/3 Ml) 3 ml NEB Q4H PRN PRN Reason: Shortness Of Breath/wheezing Aspirin (Ecotrin) 325 mg PO BID SB Last Admin: 07/22/17 09:52 Dose: 325 mg Bisacodyl (Dulcolax) 5 mg PO DAILY PRN PRN Reason: Constipation Dextrose/Water (Dextrose 50% In Water) 50 ml IVPUSH ASDIRECTED PRN PRN Reason: Hypoglycemia Diphenhydramine HCl (Benadryl) 25 mg IVPUSH Q6H PRN PRN Reason: Pruritis Last Admin: 07/22/17 01:29 Dose: 25 mg Docusate Sodium (Colace) 100 mg PO BID PRN PRN Reason: Constipation Hydralazine HCl (Apresoline) 20 mg IVPUSH Q4H PRN PRN Reason: Hypertension Hydromorphone HCl (Dilaudid) 0.5 mg IVPUSH Q2H PRN PRN Reason: Pain Last Admin: 07/22/17 09:54 Dose: 0.5 mg Promethazine HCl 12.5 mg/ (Sodium Chloride) 50.5 mls @ 100 mls/hr IV Q6H PRN PRN Reason: Nausea/Vomiting Vancomycin HCl 1 gm/ Sodium (Chloride) 250 mls @ 250 mls/hr IV Q8H [facility] Last Admin: 07/22/17 06:06 Dose: 250 mls/hr Ibuprofen (Motrin) 600 mg PO Q6H PRN PRN Reason: Pain Last Admin: 07/21/17 20:20 Dose: 600 mg Insulin Aspart (Novolog) 0 unit SUBCUT QIDACANDBED [facility] PRN Reason: Protocol Last Admin: 07/22/17 09:55 Dose: 9 units Insulin Detemir (Levemir) 20 unit SUBCUT BEDTIME [facility] Last Admin: 07/21/17 20:41 Dose: 20 units Levothyroxine Sodium (Levothyroxine) 112 mcg PO ACBREAKFAST [facility] Last Admin: 07/22/17 06:06 Dose: 112 mcg Lisinopril (Prinivil) 10 mg PO DAILY [facility] Last Admin: 07/22/17 09:53 Dose: 10 mg Lorazepam (Ativan) 2 mg IVPUSH Q4H PRN PRN Reason: Seizures Lorazepam (Ativan) 1 mg IVPUSH Q12HR PRN PRN Reason: Anxiety Last Admin: 07/21/17 20:38 Dose: 1 mg Magnesium Sulfate (Pharmacy To Dose - Magnesium Replacement) 0 dose .XX ASDIRECTED PRN PRN Reason: RX TO WATCH MAG LEVELS Metoprolol Tartrate (Lopressor) 5 mg IVPUSH Q4H PRN PRN Reason: Tachycardia Ondansetron HCl (Zofran) 4 mg IV Q6H PRN PRN Reason: Nausea/Vomiting Oxycodone HCl (Oxycodone) 5 - 10 mg PO Q4H PRN PRN Reason: Pain Last Admin: 07/22/17 09:53 Dose: 10 mg Polyethylene Glycol (Miralax) 17 gm PO DAILY PRN PRN Reason: Constipation Potassium Chloride (Pharmacy To Dose - Potassium Replacement) 0 dose .XX ASDIRECTED PRN PRN Reason: RX TO WATCH K LEVELS Senna/Docusate Sodium (Senna Plus) 1 tab PO BID PRN PRN Reason: Constipation Temazepam (Restoril) 15 mg PO BEDTIME PRN PRN Reason: Sleep Last Admin: 07/19/17 02:02 Dose: 15 mg Topiramate (Topamax) 25 mg PO BID [facility] Last Admin: 07/22/17 10:00 Dose: 25 mg Vancomycin HCl (Pharmacy To Dose - Vancomycin) 0 dose .XX ASDIRECTED PRN PRN Reason: RX TO DOSE VANCOMYCIN Discontinued Medications Cefazolin Sodium (Ancef) Confirm Administered Dose 2 gm .ROUTE .STK-MED ONE Stop: 07/18/17 13:11 Fentanyl (Sublimaze) Confirm Administered Dose 250 mcg .ROUTE .STK-MED ONE Stop: 07/18/17 11:55 Fentanyl (Sublimaze) 50 mcg IVPUSH Q5M PRN PRN Reason: Pain Stop: 07/18/17 14:38 Last Admin: 07/18/17 14:51 Dose: 50 mcg Hydromorphone HCl (Dilaudid) 1 mg IM ONETIME ONE Stop: 07/17/17 20:07 Last Admin: 07/17/17 20:10 Dose: 1 mg Hydromorphone HCl (Dilaudid) Confirm Administered Dose 0.5 mg .ROUTE .STK-MED ONE Stop: 07/17/17 23:38 Last Admin: 07/17/17 23:56 Dose: Not Given Hydromorphone HCl (Dilaudid) 0.5 mg IVPUSH Q15M PRN PRN Reason: Pain (severe 7-10) Stop: 07/18/17 14:38 Last Admin: 07/18/17 14:55 Dose: 0.5 mg Vancomycin HCl 1 gm/ Sodium (Chloride) 250 mls @ 100 mls/hr IV BID ONE Stop: 07/18/17 00:15 Last Admin: 07/17/17 23:49 Dose: 100 mls/hr Dextrose/Water (Dextrose 5% In Water) 1,000 mls @ 100 mls/hr IV ASDIRECTED [facility] Last Admin: 07/18/17 06:11 Dose: 100 mls/hr Dextrose/Water (Dextrose 5% In Water) Confirm Administered Dose 1,000 mls @ as directed .ROUTE .STK-MED ONE Stop: 07/18/17 06:05 Last Admin: 07/18/17 08:03 Dose: Not Given Vancomycin HCl 1 gm/ Sodium (Chloride) 250 mls @ 250 mls/hr IV Q12H [facility] Last Admin: 07/21/17 00:06 Dose: Not Given Lidocaine HCl (Xylocaine-Mpf 1%) Confirm Administered Dose 4 mls @ as directed .ROUTE .STK-MED ONE Stop: 07/18/17 11:56 Lactated Ringer's (Ringers, Lactated) Confirm Administered Dose 1,000 mls @ as directed .ROUTE .STK-MED ONE Stop: 07/18/17 14:03 Magnesium Sulfate 2 gm/ Premix 50 mls @ 25 mls/hr IV ONETIME ONE Stop: 07/19/17 13:29 Last Admin: 07/19/17 12:12 Dose: 25 mls/hr Insulin Detemir (Levemir) 13 unit SUBCUT BEDTIME [facility] Last Admin: 07/19/17 22:04 Dose: 13 units Insulin Detemir (Levemir) 15 unit SUBCUT ONETIME ONE Stop: 07/17/17 21:57 Last Admin: 07/18/17 02:54 Dose: Not Given Insulin Detemir (Levemir) 15 unit SUBCUT ONETIME ONE Stop: 07/18/17 00:31 Last Admin: 07/18/17 00:24 Dose: Not Given Insulin Detemir (Levemir) 15 unit SUBCUT BEDTIME [facility] Last Admin: 07/20/17 20:05 Dose: 15 units Ketorolac Tromethamine (Toradol) 60 mg IM ONETIME ONE Stop: 07/17/17 20:07 Last Admin: 07/17/17 20:10 Dose: 60 mg Levothyroxine Sodium (Synthroid) 100 mcg PO ACBREAKFAST [facility] Lorazepam (Ativan) 1 mg IV Q6H PRN PRN Reason: Anxiety Last Admin: 07/18/17 23:59 Dose: 1 mg Meperidine HCl (Demerol) 12.5 mg IVPUSH ONETIME PRN PRN Reason: Shivering Stop: 07/18/17 16:00 Midazolam HCl (Versed 1 Mg/Ml) Confirm Administered Dose 2 mg .ROUTE .STK-MED ONE Stop: 07/18/17 11:55 Morphine Sulfate (Morphine) 2 mg IVPUSH Q2H PRN PRN Reason: Pain (moderate 4-6) Ondansetron HCl (Zofran Odt) 4 mg PO Q6H ONE Stop: 07/17/17 21:47 Last Admin: 07/17/17 23:51 Dose: Not Given Ondansetron HCl (Zofran) Confirm Administered Dose 4 mg .ROUTE .STK-MED ONE Stop: 07/18/17 11:56 Ondansetron HCl (Zofran) 4 mg IVPUSH ONETIME PRN PRN Reason: Nausea/Vomiting Stop: 07/18/17 16:00 Oxycodone HCl (Oxycodone) 5 mg PO Q4H PRN PRN Reason: Pain Pneumococcal Polyvalent Vaccine (Pneumovax 23) 0.5 ml IM .ONCE ONE Stop: 07/18/17 03:01 Propofol (Diprivan 20 Ml) Confirm Administered Dose 200 mg .ROUTE .STK-MED ONE Stop: 07/18/17 11:55 Succinylcholine Chloride (Quelicin) Confirm Administered Dose 200 mg .ROUTE .STK -MED ONE Stop: 07/18/17 12:18 - Exam Wound/Incisions: Dressing Dry and Intact General: Alert, Cooperative, No Acute Distress Lungs: Normal Respiratory Effort Extremities: Other (NVS intact for LUE.) - Problem List Review Problem List Initiated/Reviewed/Updated: Yes - My Orders Last 24 Hours: Active Orders 24 hr Category Date Time Status Ready for Discharge [RC] PER UNIT ROUTINE Care 07/22/17 10:11 Ordered BASIC METABOLIC PANEL,BMP [CHEM] DAILY Lab 07/23/17 05:00 Ordered C-REACTIVE PROTEIN [CHEM] DAILY Lab 07/23/17 05:00 Ordered CBC WITH AUTO DIFF [HEME] DAILY Lab 07/23/17 05:00 Ordered Insulin Detemir [Levemir] Med 07/21/17 21:00 Active 20 unit SUBCUT BEDTIME Medication Orders Albuterol/Ipratropium (Duoneb 3.0-0.5 Mg/3 Ml) 3 ml NEB Q4H PRN PRN Reason: Shortness Of Breath/wheezing Aspirin (Ecotrin) 325 mg PO BID SB Last Admin: 07/22/17 09:52 Dose: 325 mg Admin: 07/21/17 20:20 Dose: 325 mg Admin: 07/21/17 09:32 Dose: 325 mg Admin: 07/20/17 20:05 Dose: 325 mg Admin: 07/20/17 11:28 Dose: 325 mg Bisacodyl (Dulcolax) 5 mg PO DAILY PRN PRN Reason: Constipation Dextrose/Water (Dextrose 50% In Water) 50 ml IVPUSH ASDIRECTED PRN PRN Reason: Hypoglycemia Diphenhydramine HCl (Benadryl) 25 mg IVPUSH Q6H PRN PRN Reason: Pruritis Last Admin: 07/22/17 01:29 Dose: 25 mg Admin: 07/21/17 02:23 Dose: 25 mg Admin: 07/20/17 20:04 Dose: 25 mg Docusate Sodium (Colace) 100 mg PO BID PRN PRN Reason: Constipation Hydralazine HCl (Apresoline) 20 mg IVPUSH Q4H PRN PRN Reason: Hypertension Hydromorphone HCl (Dilaudid) 0.5 mg IVPUSH Q2H PRN PRN Reason: Pain Last Admin: 07/22/17 09:54 Dose: 0.5 mg Admin: 07/22/17 06:09 Dose: 0.5 mg Admin: 07/22/17 04:05 Dose: 0.5 mg Admin: 07/22/17 01:25 Dose: 0.5 mg Admin: 07/21/17 22:28 Dose: 0.5 mg Admin: 07/21/17 20:38 Dose: 0.5 mg Admin: 07/21/17 18:22 Dose: 0.5 mg Admin: 07/21/17 16:15 Dose: 0.5 mg Admin: 07/21/17 14:13 Dose: 0.5 mg Admin: 07/21/17 11:41 Dose: 0.5 mg Admin: 07/21/17 09:34 Dose: 0.5 mg Admin: 07/21/17 07:22 Dose: 0.5 mg Admin: 07/21/17 05:02 Dose: 0.5 mg Admin: 07/21/17 02:18 Dose: 0.5 mg Admin: 07/20/17 23:06 Dose: 0.5 mg Admin: 07/20/17 20:04 Dose: 0.5 mg Admin: 07/20/17 17:52 Dose: 0.5 mg Admin: 07/20/17 15:11 Dose: 0.5 mg Admin: 07/20/17 12:58 Dose: 0.5 mg Admin: 07/20/17 09:11 Dose: 0.5 mg Admin: 07/20/17 00:26 Dose: 0.5 mg Admin: 07/19/17 22:03 Dose: 0.5 mg Admin: 07/19/17 19:39 Dose: 0.5 mg Admin: 07/19/17 17:32 Dose: 0.5 mg Admin: 07/19/17 14:46 Dose: 0.5 mg Admin: 07/19/17 12:23 Dose: 0.5 mg Admin: 07/19/17 09:40 Dose: 0.5 mg Admin: 07/19/17 07:37 Dose: 0.5 mg Admin: 07/19/17 05:28 Dose: 0.5 mg Admin: 07/19/17 02:02 Dose: 0.5 mg Admin: 07/18/17 23:16 Dose: 0.5 mg Admin: 07/18/17 21:15 Dose: 0.5 mg Admin: 07/18/17 18:22 Dose: 0.5 mg Admin: 07/18/17 16:20 Dose: 0.5 mg Admin: 07/18/17 10:03 Dose: 0.5 mg Admin: 07/18/17 06:17 Dose: 0.5 mg Admin: 07/18/17 03:57 Dose: 0.5 mg Admin: 07/17/17 23:42 Dose: 0.5 mg Promethazine HCl 12.5 mg/ (Sodium Chloride) 50.5 mls @ 100 mls/hr IV Q6H PRN PRN Reason: Nausea/Vomiting Vancomycin HCl 1 gm/ Sodium (Chloride) 250 mls @ 250 mls/hr IV Q8H [facility] Last Admin: 07/22/17 06:06 Dose: 250 mls/hr Infusion: 07/21/17 23:28 Dose: 250 mls/hr Admin: 07/21/17 22:28 Dose: 250 mls/hr Infusion: 07/21/17 14:01 Dose: 250 mls/hr Admin: 07/21/17 13:01 Dose: 250 mls/hr Infusion: 07/21/17 07:40 Dose: 250 mls/hr Admin: 07/21/17 06:40 Dose: 250 mls/hr Infusion: 07/20/17 23:59 Dose: 250 mls/hr Admin: 07/20/17 22:59 Dose: 250 mls/hr Ibuprofen (Motrin) 600 mg PO Q6H PRN PRN Reason: Pain Last Admin: 07/21/17 20:20 Dose: 600 mg Admin: 07/19/17 03:05 Dose: 600 mg Insulin Aspart (Novolog) 0 unit SUBCUT QIDACANDBED [facility] PRN Reason: Protocol Last Admin: 07/22/17 09:55 Dose: 9 units Admin: 07/21/17 22:37 Dose: Admin: 07/21/17 20:42 Dose: 9 units Admin: 07/21/17 17:15 Dose: 3 units Admin: 07/21/17 11:46 Dose: Not Given Admin: 07/21/17 06:40 Dose: 12 units Admin: 07/20/17 22:59 Dose: 9 units Admin: 07/20/17 17:56 Dose: 6 units Admin: 07/20/17 12:46 Dose: 4 units Admin: 07/20/17 11:20 Dose: Not Given Admin: 07/19/17 22:05 Dose: 10 units Admin: 07/19/17 18:10 Dose: 2 units Admin: 07/19/17 12:13 Dose: 2 units Admin: 07/19/17 06:54 Dose: 4 units Admin: 07/18/17 22:02 Dose: Not Given Admin: 07/18/17 17:30 Dose: 2 units Admin: 07/18/17 15:21 Dose: Not Given Admin: 07/18/17 08:03 Dose: Not Given Admin: 07/18/17 00:05 Dose: Not Given Insulin Detemir (Levemir) 20 unit SUBCUT BEDTIME [facility] Last Admin: 07/21/17 20:41 Dose: 20 units Levothyroxine Sodium (Levothyroxine) 112 mcg PO ACBREAKFAST [facility] Last Admin: 07/22/17 06:06 Dose: 112 mcg Admin: 07/21/17 06:40 Dose: 112 mcg Admin: 07/20/17 11:20 Dose: Admin: 07/19/17 05:28 Dose: 112 mcg Admin: 07/18/17 09:29 Dose: 112 mcg Lisinopril (Prinivil) 10 mg PO DAILY [facility] Last Admin: 07/22/17 09:53 Dose: 10 mg Admin: 07/21/17 09:32 Dose: 10 mg Admin: 07/20/17 09:10 Dose: 10 mg Admin: 07/19/17 09:35 Dose: 10 mg Admin: 07/18/17 09:29 Dose: 10 mg Lorazepam (Ativan) 2 mg IVPUSH Q4H PRN PRN Reason: Seizures Lorazepam (Ativan) 1 mg IVPUSH Q12HR PRN PRN Reason: Anxiety Last Admin: 07/21/17 20:38 Dose: 1 mg Magnesium Sulfate (Pharmacy To Dose - Magnesium Replacement) 0 dose .XX ASDIRECTED PRN PRN Reason: RX TO WATCH MAG LEVELS Metoprolol Tartrate (Lopressor) 5 mg IVPUSH Q4H PRN PRN Reason: Tachycardia Ondansetron HCl (Zofran) 4 mg IV Q6H PRN PRN Reason: Nausea/Vomiting Oxycodone HCl (Oxycodone) 5 - 10 mg PO Q4H PRN PRN Reason: Pain Last Admin: 07/22/17 09:53 Dose: 10 mg Admin: 07/22/17 06:06 Dose: 10 mg Admin: 07/22/17 01:33 Dose: 10 mg Admin: 07/21/17 20:20 Dose: 10 mg Admin: 07/21/17 14:12 Dose: 10 mg Admin: 07/21/17 09:33 Dose: 10 mg Admin: 07/21/17 04:54 Dose: 10 mg Admin: 07/21/17 00:16 Dose: 10 mg Admin: 07/20/17 20:05 Dose: 10 mg Admin: 07/20/17 14:56 Dose: 10 mg Admin: 07/20/17 09:43 Dose: 10 mg Admin: 07/20/17 00:26 Dose: 10 mg Admin: 07/19/17 19:38 Dose: 10 mg Admin: 07/19/17 14:45 Dose: 10 mg Admin: 07/19/17 07:04 Dose: 10 mg Admin: 07/19/17 03:04 Dose: 10 mg Admin: 07/18/17 23:16 Dose: 10 mg Admin: 07/18/17 18:00 Dose: 10 mg Admin: 07/18/17 09:34 Dose: 10 mg Admin: 07/18/17 00:20 Dose: 10 mg Polyethylene Glycol (Miralax) 17 gm PO DAILY PRN PRN Reason: Constipation Potassium Chloride (Pharmacy To Dose - Potassium Replacement) 0 dose .XX ASDIRECTED PRN PRN Reason: RX TO WATCH K LEVELS Senna/Docusate Sodium (Senna Plus) 1 tab PO BID PRN PRN Reason: Constipation Temazepam (Restoril) 15 mg PO BEDTIME PRN PRN Reason: Sleep Last Admin: 07/19/17 02:02 Dose: 15 mg Topiramate (Topamax) 25 mg PO BID SB Last Admin: 07/22/17 10:00 Dose: 25 mg Admin: 07/21/17 20:21 Dose: 25 mg Admin: 07/21/17 09:33 Dose: 25 mg Admin: 07/20/17 20:05 Dose: 25 mg Admin: 07/20/17 09:10 Dose: 25 mg Admin: 07/19/17 20:39 Dose: 25 mg Vancomycin HCl (Pharmacy To Dose - Vancomycin) 0 dose .XX ASDIRECTED PRN PRN Reason: RX TO DOSE VANCOMYCIN - Assessment Assessment (Free Text/Narrative):: POD#4 - s/p I&D of left wrist abscess - Plan Plan (Free Text/Narrative):: 1. Discharge to home today. 2. PO antibiotic therapy. 3. 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 4. Counseled on need for continued close monitoring of blood sugars. 5. Follow-up at outpatient [facility] next week. The pt is to elevate the limb, use ice as needed, and keep bandage in place until follow-up. The pt's case has been discussed with Dr. Melgar.
--- NOTE | 2017-07-22 10:18 | PCM.SURGPN ---
- General Info Date of Service: 07/21/17 POD#: 3 Functional Status: Reports: Pain Controlled, Tolerating Diet, Ambulating, Urinating, Other (The pt reports no increase in discomfort.) - Patient Data Vitals - Most Recent: Last Vital Signs Temp 97.5 F 07/22/17 04:05 Pulse 61 07/22/17 04:05 Resp 14 07/22/17 04:05 BP 125/85 07/22/17 09:53 Pulse Ox 99 07/22/17 04:05 Weight - Most Recent: 138 lb I&O - Last 24 Hours: Intake & Output 07/21/17 07/22/17 07/22/17 22:59 06:59 14:59 Intake Total 1410 625 Output Total 1900 950 Balance -490 -325 Lab Results Last 24 Hrs: Laboratory Results - last 24 hr 07/21/17 07/21/17 07/21/17 Range/Units 11:46 17:13 20:25 WBC (3.98-10.04) K/mm3 RBC (3.98-5.22) M/mm3 Hgb (11.2-15.7) gm/L Hct (34.1-44.9) % MCV (79.4-94.8) fl MCH (25.6-32.2) pg MCHC (32.2-35.5) g/dl RDW Std Deviation (36.4-46.3) fL Plt Count (182-369) K/mm3 MPV (9.4-12.3) fl Neut % (Auto) (34.0-71.1) % Lymph % (Auto) (19.3-51.7) % [place] % (Auto) (4.7-12.5) % Eos % (Auto) (0.7-5.8) Baso % (Auto) (0.1-1.2) % Neut # (Auto) (1.56-6.13) K/mm3 Lymph # (Auto) (1.18-3.74) K/mm3 [place] # (Auto) (0.24-0.36) K/mm3 Eos # (Auto) (0.04-0.36) K/mm3 Baso # (Auto) (0.01-0.08) K/mm3 Sodium (136-145) mEq/L Potassium (3.5-5.1) mEq/L Chloride (98-107) mEq/L Carbon Dioxide (21-32) mEq/L Anion Gap (5-15) BUN (7-18) mg/dL Creatinine (0.55-1.02) mg/dL Est Cr Clr Drug Dosing mL/min Estimated GFR (MDRD) (>60) mL/min BUN/Creatinine Ratio (14-18) Glucose (74-106) mg/dL POC Glucose 102 193 H 299 H (70-105) mg/dL Calcium (8.5-10.1) mg/dL C-Reactive Protein (<1.0) mg/dL Vancomycin Trough (10.0-20.0) 07/22/17 07/22/17 07/22/17 Range/Units 06:08 06:08 06:08 WBC 5.09 (3.98-10.04) K/mm3 RBC 4.43 (3.98-5.22) M/mm3 Hgb 12.1 (11.2-15.7) gm/L Hct 36.0 (34.1-44.9) % MCV 81.3 (79.4-94.8) fl MCH 27.3 (25.6-32.2) pg MCHC 33.6 (32.2-35.5) g/dl RDW Std Deviation 40.2 (36.4-46.3) fL Plt Count 251 (182-369) K/mm3 MPV 10.1 (9.4-12.3) fl Neut % (Auto) 37.9 (34.0-71.1) % Lymph % (Auto) 40.1 (19.3-51.7) % [place] % (Auto) 13.9 H (4.7-12.5) % Eos % (Auto) 7.1 H (0.7-5.8) Baso % (Auto) 0.8 (0.1-1.2) % Neut # (Auto) 1.93 (1.56-6.13) K/mm3 Lymph # (Auto) 2.04 (1.18-3.74) K/mm3 [place] # (Auto) 0.71 H (0.24-0.36) K/mm3 Eos # (Auto) 0.36 (0.04-0.36) K/mm3 Baso # (Auto) 0.04 (0.01-0.08) K/mm3 Sodium 137 (136-145) mEq/L Potassium 4.1 (3.5-5.1) mEq/L Chloride 103 (98-107) mEq/L Carbon Dioxide 27 (21-32) mEq/L Anion Gap 11.1 (5-15) BUN 19 H (7-18) mg/dL Creatinine 0.6 (0.55-1.02) mg/dL Est Cr Clr Drug Dosing 103.50 mL/min Estimated GFR (MDRD) > 60 (>60) mL/min BUN/Creatinine Ratio 31.7 H (14-18) Glucose 263 H (74-106) mg/dL POC Glucose (70-105) mg/dL Calcium 8.7 (8.5-10.1) mg/dL C-Reactive Protein 2.1 H* (<1.0) mg/dL Vancomycin Trough 14.7 (10.0-20.0) 07/22/17 Range/Units 06:10 WBC (3.98-10.04) K/mm3 RBC (3.98-5.22) M/mm3 Hgb (11.2-15.7) gm/L Hct (34.1-44.9) % MCV (79.4-94.8) fl MCH (25.6-32.2) pg MCHC (32.2-35.5) g/dl RDW Std Deviation (36.4-46.3) fL Plt Count (182-369) K/mm3 MPV (9.4-12.3) fl Neut % (Auto) (34.0-71.1) % Lymph % (Auto) (19.3-51.7) % [place] % (Auto) (4.7-12.5) % Eos % (Auto) (0.7-5.8) Baso % (Auto) (0.1-1.2) % Neut # (Auto) (1.56-6.13) K/mm3 Lymph # (Auto) (1.18-3.74) K/mm3 [place] # (Auto) (0.24-0.36) K/mm3 Eos # (Auto) (0.04-0.36) K/mm3 Baso # (Auto) (0.01-0.08) K/mm3 Sodium (136-145) mEq/L Potassium (3.5-5.1) mEq/L Chloride (98-107) mEq/L Carbon Dioxide (21-32) mEq/L Anion Gap (5-15) BUN (7-18) mg/dL Creatinine (0.55-1.02) mg/dL Est Cr Clr Drug Dosing mL/min Estimated GFR (MDRD) (>60) mL/min BUN/Creatinine Ratio (14-18) Glucose (74-106) mg/dL POC Glucose 271 H (70-105) mg/dL Calcium (8.5-10.1) mg/dL C-Reactive Protein (<1.0) mg/dL Vancomycin Trough (10.0-20.0) Vince Results Last 24 Hrs: Microbiology 07/18/17 13:00 Gram Stain - Final Wrist, Left Anaerobic Culture - Final Streptococcus Intermedius Med Orders - Current: Current Medications Albuterol/Ipratropium (Duoneb 3.0-0.5 Mg/3 Ml) 3 ml NEB Q4H PRN PRN Reason: Shortness Of Breath/wheezing Aspirin (Ecotrin) 325 mg PO BID SB Last Admin: 07/22/17 09:52 Dose: 325 mg Bisacodyl (Dulcolax) 5 mg PO DAILY PRN PRN Reason: Constipation Dextrose/Water (Dextrose 50% In Water) 50 ml IVPUSH ASDIRECTED PRN PRN Reason: Hypoglycemia Diphenhydramine HCl (Benadryl) 25 mg IVPUSH Q6H PRN PRN Reason: Pruritis Last Admin: 07/22/17 01:29 Dose: 25 mg Docusate Sodium (Colace) 100 mg PO BID PRN PRN Reason: Constipation Hydralazine HCl (Apresoline) 20 mg IVPUSH Q4H PRN PRN Reason: Hypertension Hydromorphone HCl (Dilaudid) 0.5 mg IVPUSH Q2H PRN PRN Reason: Pain Last Admin: 07/22/17 09:54 Dose: 0.5 mg Promethazine HCl 12.5 mg/ (Sodium Chloride) 50.5 mls @ 100 mls/hr IV Q6H PRN PRN Reason: Nausea/Vomiting Vancomycin HCl 1 gm/ Sodium (Chloride) 250 mls @ 250 mls/hr IV Q8H [facility] Last Admin: 07/22/17 06:06 Dose: 250 mls/hr Ibuprofen (Motrin) 600 mg PO Q6H PRN PRN Reason: Pain Last Admin: 07/21/17 20:20 Dose: 600 mg Insulin Aspart (Novolog) 0 unit SUBCUT QIDACANDBED [facility] PRN Reason: Protocol Last Admin: 07/22/17 09:55 Dose: 9 units Insulin Detemir (Levemir) 20 unit SUBCUT BEDTIME [facility] Last Admin: 07/21/17 20:41 Dose: 20 units Levothyroxine Sodium (Levothyroxine) 112 mcg PO ACBREAKFAST [facility] Last Admin: 07/22/17 06:06 Dose: 112 mcg Lisinopril (Prinivil) 10 mg PO DAILY [facility] Last Admin: 07/22/17 09:53 Dose: 10 mg Lorazepam (Ativan) 2 mg IVPUSH Q4H PRN PRN Reason: Seizures Lorazepam (Ativan) 1 mg IVPUSH Q12HR PRN PRN Reason: Anxiety Last Admin: 07/21/17 20:38 Dose: 1 mg Magnesium Sulfate (Pharmacy To Dose - Magnesium Replacement) 0 dose .XX ASDIRECTED PRN PRN Reason: RX TO WATCH MAG LEVELS Metoprolol Tartrate (Lopressor) 5 mg IVPUSH Q4H PRN PRN Reason: Tachycardia Ondansetron HCl (Zofran) 4 mg IV Q6H PRN PRN Reason: Nausea/Vomiting Oxycodone HCl (Oxycodone) 5 - 10 mg PO Q4H PRN PRN Reason: Pain Last Admin: 07/22/17 09:53 Dose: 10 mg Polyethylene Glycol (Miralax) 17 gm PO DAILY PRN PRN Reason: Constipation Potassium Chloride (Pharmacy To Dose - Potassium Replacement) 0 dose .XX ASDIRECTED PRN PRN Reason: RX TO WATCH K LEVELS Senna/Docusate Sodium (Senna Plus) 1 tab PO BID PRN PRN Reason: Constipation Temazepam (Restoril) 15 mg PO BEDTIME PRN PRN Reason: Sleep Last Admin: 07/19/17 02:02 Dose: 15 mg Topiramate (Topamax) 25 mg PO BID [facility] Last Admin: 07/22/17 10:00 Dose: 25 mg Vancomycin HCl (Pharmacy To Dose - Vancomycin) 0 dose .XX ASDIRECTED PRN PRN Reason: RX TO DOSE VANCOMYCIN Discontinued Medications Cefazolin Sodium (Ancef) Confirm Administered Dose 2 gm .ROUTE .STK-MED ONE Stop: 07/18/17 13:11 Fentanyl (Sublimaze) Confirm Administered Dose 250 mcg .ROUTE .STK-MED ONE Stop: 07/18/17 11:55 Fentanyl (Sublimaze) 50 mcg IVPUSH Q5M PRN PRN Reason: Pain Stop: 07/18/17 14:38 Last Admin: 07/18/17 14:51 Dose: 50 mcg Hydromorphone HCl (Dilaudid) 1 mg IM ONETIME ONE Stop: 07/17/17 20:07 Last Admin: 07/17/17 20:10 Dose: 1 mg Hydromorphone HCl (Dilaudid) Confirm Administered Dose 0.5 mg .ROUTE .STK-MED ONE Stop: 07/17/17 23:38 Last Admin: 07/17/17 23:56 Dose: Not Given Hydromorphone HCl (Dilaudid) 0.5 mg IVPUSH Q15M PRN PRN Reason: Pain (severe 7-10) Stop: 07/18/17 14:38 Last Admin: 07/18/17 14:55 Dose: 0.5 mg Vancomycin HCl 1 gm/ Sodium (Chloride) 250 mls @ 100 mls/hr IV BID ONE Stop: 07/18/17 00:15 Last Admin: 07/17/17 23:49 Dose: 100 mls/hr Dextrose/Water (Dextrose 5% In Water) 1,000 mls @ 100 mls/hr IV ASDIRECTED [facility] Last Admin: 07/18/17 06:11 Dose: 100 mls/hr Dextrose/Water (Dextrose 5% In Water) Confirm Administered Dose 1,000 mls @ as directed .ROUTE .STK-MED ONE Stop: 07/18/17 06:05 Last Admin: 07/18/17 08:03 Dose: Not Given Vancomycin HCl 1 gm/ Sodium (Chloride) 250 mls @ 250 mls/hr IV Q12H [facility] Last Admin: 07/21/17 00:06 Dose: Not Given Lidocaine HCl (Xylocaine-Mpf 1%) Confirm Administered Dose 4 mls @ as directed .ROUTE .STK-MED ONE Stop: 07/18/17 11:56 Lactated Ringer's (Ringers, Lactated) Confirm Administered Dose 1,000 mls @ as directed .ROUTE .STK-MED ONE Stop: 07/18/17 14:03 Magnesium Sulfate 2 gm/ Premix 50 mls @ 25 mls/hr IV ONETIME ONE Stop: 07/19/17 13:29 Last Admin: 07/19/17 12:12 Dose: 25 mls/hr Insulin Detemir (Levemir) 13 unit SUBCUT BEDTIME [facility] Last Admin: 07/19/17 22:04 Dose: 13 units Insulin Detemir (Levemir) 15 unit SUBCUT ONETIME ONE Stop: 07/17/17 21:57 Last Admin: 07/18/17 02:54 Dose: Not Given Insulin Detemir (Levemir) 15 unit SUBCUT ONETIME ONE Stop: 07/18/17 00:31 Last Admin: 07/18/17 00:24 Dose: Not Given Insulin Detemir (Levemir) 15 unit SUBCUT BEDTIME [facility] Last Admin: 07/20/17 20:05 Dose: 15 units Ketorolac Tromethamine (Toradol) 60 mg IM ONETIME ONE Stop: 07/17/17 20:07 Last Admin: 07/17/17 20:10 Dose: 60 mg Levothyroxine Sodium (Synthroid) 100 mcg PO ACBREAKFAST [facility] Lorazepam (Ativan) 1 mg IV Q6H PRN PRN Reason: Anxiety Last Admin: 07/18/17 23:59 Dose: 1 mg Meperidine HCl (Demerol) 12.5 mg IVPUSH ONETIME PRN PRN Reason: Shivering Stop: 07/18/17 16:00 Midazolam HCl (Versed 1 Mg/Ml) Confirm Administered Dose 2 mg .ROUTE .STK-MED ONE Stop: 07/18/17 11:55 Morphine Sulfate (Morphine) 2 mg IVPUSH Q2H PRN PRN Reason: Pain (moderate 4-6) Ondansetron HCl (Zofran Odt) 4 mg PO Q6H ONE Stop: 07/17/17 21:47 Last Admin: 07/17/17 23:51 Dose: Not Given Ondansetron HCl (Zofran) Confirm Administered Dose 4 mg .ROUTE .STK-MED ONE Stop: 07/18/17 11:56 Ondansetron HCl (Zofran) 4 mg IVPUSH ONETIME PRN PRN Reason: Nausea/Vomiting Stop: 07/18/17 16:00 Oxycodone HCl (Oxycodone) 5 mg PO Q4H PRN PRN Reason: Pain Pneumococcal Polyvalent Vaccine (Pneumovax 23) 0.5 ml IM .ONCE ONE Stop: 07/18/17 03:01 Propofol (Diprivan 20 Ml) Confirm Administered Dose 200 mg .ROUTE .STK-MED ONE Stop: 07/18/17 11:55 Succinylcholine Chloride (Quelicin) Confirm Administered Dose 200 mg .ROUTE .STK -MED ONE Stop: 07/18/17 12:18 - Exam Wound/Incisions: Dressing Dry and Intact, Other (Wound was viewed today. No monica-wound erythema, warmth, excessive tenderness noted. No bleeding, drainage from site. All sutures intact and wound appears to be healing without complicating process.) General: Alert, Cooperative, No Acute Distress Lungs: Normal Respiratory Effort Extremities: Other (The pt was able to flex and extend all fingers of left hand. NVS intact for LUE. Left forearm soft and nontender. LUE without erythema, warmth, tenderness. Gentle left wrist ROM without complaint.) - Problem List Review Problem List Initiated/Reviewed/Updated: Yes - My Orders Last 24 Hours: Active Orders 24 hr Category Date Time Status Ready for Discharge [RC] PER UNIT ROUTINE Care 07/22/17 10:11 Ordered BASIC METABOLIC PANEL,BMP [CHEM] DAILY Lab 07/23/17 05:00 Ordered C-REACTIVE PROTEIN [CHEM] DAILY Lab 07/23/17 05:00 Ordered CBC WITH AUTO DIFF [HEME] DAILY Lab 07/23/17 05:00 Ordered Insulin Detemir [Levemir] Med 07/21/17 21:00 Active 20 unit SUBCUT BEDTIME Medication Orders Albuterol/Ipratropium (Duoneb 3.0-0.5 Mg/3 Ml) 3 ml NEB Q4H PRN PRN Reason: Shortness Of Breath/wheezing Aspirin (Ecotrin) 325 mg PO BID SB Last Admin: 07/22/17 09:52 Dose: 325 mg Admin: 07/21/17 20:20 Dose: 325 mg Admin: 07/21/17 09:32 Dose: 325 mg Admin: 07/20/17 20:05 Dose: 325 mg Admin: 07/20/17 11:28 Dose: 325 mg Bisacodyl (Dulcolax) 5 mg PO DAILY PRN PRN Reason: Constipation Dextrose/Water (Dextrose 50% In Water) 50 ml IVPUSH ASDIRECTED PRN PRN Reason: Hypoglycemia Diphenhydramine HCl (Benadryl) 25 mg IVPUSH Q6H PRN PRN Reason: Pruritis Last Admin: 07/22/17 01:29 Dose: 25 mg Admin: 07/21/17 02:23 Dose: 25 mg Admin: 07/20/17 20:04 Dose: 25 mg Docusate Sodium (Colace) 100 mg PO BID PRN PRN Reason: Constipation Hydralazine HCl (Apresoline) 20 mg IVPUSH Q4H PRN PRN Reason: Hypertension Hydromorphone HCl (Dilaudid) 0.5 mg IVPUSH Q2H PRN PRN Reason: Pain Last Admin: 07/22/17 09:54 Dose: 0.5 mg Admin: 07/22/17 06:09 Dose: 0.5 mg Admin: 07/22/17 04:05 Dose: 0.5 mg Admin: 07/22/17 01:25 Dose: 0.5 mg Admin: 07/21/17 22:28 Dose: 0.5 mg Admin: 07/21/17 20:38 Dose: 0.5 mg Admin: 07/21/17 18:22 Dose: 0.5 mg Admin: 07/21/17 16:15 Dose: 0.5 mg Admin: 07/21/17 14:13 Dose: 0.5 mg Admin: 07/21/17 11:41 Dose: 0.5 mg Admin: 07/21/17 09:34 Dose: 0.5 mg Admin: 07/21/17 07:22 Dose: 0.5 mg Admin: 07/21/17 05:02 Dose: 0.5 mg Admin: 07/21/17 02:18 Dose: 0.5 mg Admin: 07/20/17 23:06 Dose: 0.5 mg Admin: 07/20/17 20:04 Dose: 0.5 mg Admin: 07/20/17 17:52 Dose: 0.5 mg Admin: 07/20/17 15:11 Dose: 0.5 mg Admin: 07/20/17 12:58 Dose: 0.5 mg Admin: 07/20/17 09:11 Dose: 0.5 mg Admin: 07/20/17 00:26 Dose: 0.5 mg Admin: 07/19/17 22:03 Dose: 0.5 mg Admin: 07/19/17 19:39 Dose: 0.5 mg Admin: 07/19/17 17:32 Dose: 0.5 mg Admin: 07/19/17 14:46 Dose: 0.5 mg Admin: 07/19/17 12:23 Dose: 0.5 mg Admin: 07/19/17 09:40 Dose: 0.5 mg Admin: 07/19/17 07:37 Dose: 0.5 mg Admin: 07/19/17 05:28 Dose: 0.5 mg Admin: 07/19/17 02:02 Dose: 0.5 mg Admin: 07/18/17 23:16 Dose: 0.5 mg Admin: 07/18/17 21:15 Dose: 0.5 mg Admin: 07/18/17 18:22 Dose: 0.5 mg Admin: 07/18/17 16:20 Dose: 0.5 mg Admin: 07/18/17 10:03 Dose: 0.5 mg Admin: 07/18/17 06:17 Dose: 0.5 mg Admin: 07/18/17 03:57 Dose: 0.5 mg Admin: 07/17/17 23:42 Dose: 0.5 mg Promethazine HCl 12.5 mg/ (Sodium Chloride) 50.5 mls @ 100 mls/hr IV Q6H PRN PRN Reason: Nausea/Vomiting Vancomycin HCl 1 gm/ Sodium (Chloride) 250 mls @ 250 mls/hr IV Q8H [facility] Last Admin: 07/22/17 06:06 Dose: 250 mls/hr Infusion: 07/21/17 23:28 Dose: 250 mls/hr Admin: 07/21/17 22:28 Dose: 250 mls/hr Infusion: 07/21/17 14:01 Dose: 250 mls/hr Admin: 07/21/17 13:01 Dose: 250 mls/hr Infusion: 07/21/17 07:40 Dose: 250 mls/hr Admin: 07/21/17 06:40 Dose: 250 mls/hr Infusion: 07/20/17 23:59 Dose: 250 mls/hr Admin: 07/20/17 22:59 Dose: 250 mls/hr Ibuprofen (Motrin) 600 mg PO Q6H PRN PRN Reason: Pain Last Admin: 07/21/17 20:20 Dose: 600 mg Admin: 07/19/17 03:05 Dose: 600 mg Insulin Aspart (Novolog) 0 unit SUBCUT QIDACANDBED [facility] PRN Reason: Protocol Last Admin: 07/22/17 09:55 Dose: 9 units Admin: 07/21/17 22:37 Dose: Admin: 07/21/17 20:42 Dose: 9 units Admin: 07/21/17 17:15 Dose: 3 units Admin: 07/21/17 11:46 Dose: Not Given Admin: 07/21/17 06:40 Dose: 12 units Admin: 07/20/17 22:59 Dose: 9 units Admin: 07/20/17 17:56 Dose: 6 units Admin: 07/20/17 12:46 Dose: 4 units Admin: 07/20/17 11:20 Dose: Not Given Admin: 07/19/17 22:05 Dose: 10 units Admin: 07/19/17 18:10 Dose: 2 units Admin: 07/19/17 12:13 Dose: 2 units Admin: 07/19/17 06:54 Dose: 4 units Admin: 07/18/17 22:02 Dose: Not Given Admin: 07/18/17 17:30 Dose: 2 units Admin: 07/18/17 15:21 Dose: Not Given Admin: 07/18/17 08:03 Dose: Not Given Admin: 07/18/17 00:05 Dose: Not Given Insulin Detemir (Levemir) 20 unit SUBCUT BEDTIME [facility] Last Admin: 07/21/17 20:41 Dose: 20 units Levothyroxine Sodium (Levothyroxine) 112 mcg PO ACBREAKFAST [facility] Last Admin: 07/22/17 06:06 Dose: 112 mcg Admin: 07/21/17 06:40 Dose: 112 mcg Admin: 07/20/17 11:20 Dose: Admin: 07/19/17 05:28 Dose: 112 mcg Admin: 07/18/17 09:29 Dose: 112 mcg Lisinopril (Prinivil) 10 mg PO DAILY [facility] Last Admin: 07/22/17 09:53 Dose: 10 mg Admin: 07/21/17 09:32 Dose: 10 mg Admin: 07/20/17 09:10 Dose: 10 mg Admin: 07/19/17 09:35 Dose: 10 mg Admin: 07/18/17 09:29 Dose: 10 mg Lorazepam (Ativan) 2 mg IVPUSH Q4H PRN PRN Reason: Seizures Lorazepam (Ativan) 1 mg IVPUSH Q12HR PRN PRN Reason: Anxiety Last Admin: 07/21/17 20:38 Dose: 1 mg Magnesium Sulfate (Pharmacy To Dose - Magnesium Replacement) 0 dose .XX ASDIRECTED PRN PRN Reason: RX TO WATCH MAG LEVELS Metoprolol Tartrate (Lopressor) 5 mg IVPUSH Q4H PRN PRN Reason: Tachycardia Ondansetron HCl (Zofran) 4 mg IV Q6H PRN PRN Reason: Nausea/Vomiting Oxycodone HCl (Oxycodone) 5 - 10 mg PO Q4H PRN PRN Reason: Pain Last Admin: 07/22/17 09:53 Dose: 10 mg Admin: 07/22/17 06:06 Dose: 10 mg Admin: 07/22/17 01:33 Dose: 10 mg Admin: 07/21/17 20:20 Dose: 10 mg Admin: 07/21/17 14:12 Dose: 10 mg Admin: 07/21/17 09:33 Dose: 10 mg Admin: 07/21/17 04:54 Dose: 10 mg Admin: 07/21/17 00:16 Dose: 10 mg Admin: 07/20/17 20:05 Dose: 10 mg Admin: 07/20/17 14:56 Dose: 10 mg Admin: 07/20/17 09:43 Dose: 10 mg Admin: 07/20/17 00:26 Dose: 10 mg Admin: 07/19/17 19:38 Dose: 10 mg Admin: 07/19/17 14:45 Dose: 10 mg Admin: 07/19/17 07:04 Dose: 10 mg Admin: 07/19/17 03:04 Dose: 10 mg Admin: 07/18/17 23:16 Dose: 10 mg Admin: 07/18/17 18:00 Dose: 10 mg Admin: 07/18/17 09:34 Dose: 10 mg Admin: 07/18/17 00:20 Dose: 10 mg Polyethylene Glycol (Miralax) 17 gm PO DAILY PRN PRN Reason: Constipation Potassium Chloride (Pharmacy To Dose - Potassium Replacement) 0 dose .XX ASDIRECTED PRN PRN Reason: RX TO WATCH K LEVELS Senna/Docusate Sodium (Senna Plus) 1 tab PO BID PRN PRN Reason: Constipation Temazepam (Restoril) 15 mg PO BEDTIME PRN PRN Reason: Sleep Last Admin: 07/19/17 02:02 Dose: 15 mg Topiramate (Topamax) 25 mg PO BID SB Last Admin: 07/22/17 10:00 Dose: 25 mg Admin: 07/21/17 20:21 Dose: 25 mg Admin: 07/21/17 09:33 Dose: 25 mg Admin: 07/20/17 20:05 Dose: 25 mg Admin: 07/20/17 09:10 Dose: 25 mg Admin: 07/19/17 20:39 Dose: 25 mg Vancomycin HCl (Pharmacy To Dose - Vancomycin) 0 dose .XX ASDIRECTED PRN PRN Reason: RX TO DOSE VANCOMYCIN - Assessment Assessment (Free Text/Narrative):: POD#3 - s/p I&D left wrist for hx soft tissue abscess - Plan Plan (Free Text/Narrative):: 07-21-2017 1. Improvements noted with CRP and clinicially. Wound healing well. Suspect will be able to d/c on PO medication. 2. D/C to home tomorrow. D/C PICC tomorrow. 3. Medical management per Hospitalist service. The pt will have Chemical Dependency eval today. The pt's case has been discussed with Dr. Melgar.
--- NOTE | 2017-07-25 09:01 | PCM.DCSUM1 ---
Discharge Summary - Hospital Course Brief History: Genesis is a 37 yo female who was admitted to Hospital on 2016 for cellulitis at left hand and left wrist abscess. She underwent I&D of soft tissue abscess at left wrist on 07-18-2017. Aspiration of the wrist joint at time of surgery indicated no evidence of infection at left wrist joint. The pt had a PICC line placed at time of surgery and received IV vancomycin therapy. Strep species was noted on culture and the pt remained on vancomycin. The pt's pain was controlled with IV and PO pain medication. Medical management was provided by the Hospitalist service. The pt has hx DM type 1 and blood sugars were closely monitored by the Hospitalist staff. During Hospitalization the pt underwent chemical depedency screening due to hx positive urine drug screen. The pt's CRP and clinical status improved and decision was made to discharge pt to home on 07-22-2017. PICC line was removed, the pt was provided PO antibiotic, and she was advised to f/u at Clinic the following week. - Discharge Data Discharge Date: 07/22/17 Discharge Disposition: Home, Self-Care 01 Condition: Good - Patient Summary/Data Consults: Consultations 07/19/17 13:08 Consult to Physician [CONS] Routine 07/19/17 13:09 Consult to Hairspring I Inspector [CONS] Routine 07/20/17 17:35 Consult for Substance Abuse [CONS] Routine - Patient Instructions Diet: Usual Diet as Tolerated, Drink 8-10+ Glasses/Day, Diabetic Diet Activity: Apply Ice, Elevate Extremity Driving: Do Not Drive Wound/Incision Care: Keep Operative Site/Wound Site Clean and Dry, Do NOT Change Dressing Notify Provider of: Fever, Increased Pain, Swelling and Redness, Nausea and/or Vomiting - Discharge Plan Prescriptions/Med Rec: Acetaminophen/HYDROcodone [Thornton 325-5 MG] 1 tab PO Q8H PRN #15 tablet PRN Reason: Pain Levofloxacin [Levaquin] 750 mg PO DAILY #5 tablet Meloxicam 7.5 mg PO BID #20 tablet Home Medications: Home Meds Levothyroxine [Synthroid] 100 mcg PO ACBREAKFAST 07/17/17 [History] ALPRAZolam [Xanax] 0.5 mg PO BID 07/18/17 [History] Tresiba 85 units SQ DAILY 07/18/17 [History] Acetaminophen/HYDROcodone [Thornton 325-5 MG] 1 tab PO Q8H PRN #15 tablet 07/21/17 [Rx] Levofloxacin [Levaquin] 750 mg PO DAILY #5 tablet 07/21/17 [Rx] Meloxicam 7.5 mg PO BID #20 tablet 07/21/17 [Rx] Patient Handouts: Smoking Cessation, Tips for Success, [id number], Cannabis Use Disorder, Type 1 Diabetes Mellitus, Adult, Cellulitis, Adult, [id number] Referrals: Denver Burnett PA-C [Primary Care Provider] - - Patient Data Vitals - Most Recent: Last Vital Signs Temp 98.8 F 07/22/17 07:39 Pulse 77 07/22/17 07:39 Resp 17 07/22/17 07:39 BP 125/85 07/22/17 09:53 Pulse Ox 98 07/22/17 07:39 Weight - Most Recent: 138 lb Med Orders - Current: Current Medications Discontinued Medications Albuterol/Ipratropium (Duoneb 3.0-0.5 Mg/3 Ml) 3 ml NEB Q4H PRN PRN Reason: Shortness Of Breath/wheezing Aspirin (Ecotrin) 325 mg PO BID SB Last Admin: 07/22/17 09:52 Dose: 325 mg Bisacodyl (Dulcolax) 5 mg PO DAILY PRN PRN Reason: Constipation Cefazolin Sodium (Ancef) Confirm Administered Dose 2 gm .ROUTE .STK-MED ONE Stop: 07/18/17 13:11 Dextrose/Water (Dextrose 50% In Water) 50 ml IVPUSH ASDIRECTED PRN PRN Reason: Hypoglycemia Diphenhydramine HCl (Benadryl) 25 mg IVPUSH Q6H PRN PRN Reason: Pruritis Last Admin: 07/22/17 01:29 Dose: 25 mg Docusate Sodium (Colace) 100 mg PO BID PRN PRN Reason: Constipation Fentanyl (Sublimaze) Confirm Administered Dose 250 mcg .ROUTE .STK-MED ONE Stop: 07/18/17 11:55 Fentanyl (Sublimaze) 50 mcg IVPUSH Q5M PRN PRN Reason: Pain Stop: 07/18/17 14:38 Last Admin: 07/18/17 14:51 Dose: 50 mcg Hydralazine HCl (Apresoline) 20 mg IVPUSH Q4H PRN PRN Reason: Hypertension Hydromorphone HCl (Dilaudid) 1 mg IM ONETIME ONE Stop: 07/17/17 20:07 Last Admin: 07/17/17 20:10 Dose: 1 mg Hydromorphone HCl (Dilaudid) 0.5 mg IVPUSH Q2H PRN PRN Reason: Pain Last Admin: 07/22/17 11:55 Dose: 0.5 mg Hydromorphone HCl (Dilaudid) Confirm Administered Dose 0.5 mg .ROUTE .STK-MED ONE Stop: 07/17/17 23:38 Last Admin: 07/17/17 23:56 Dose: Not Given Hydromorphone HCl (Dilaudid) 0.5 mg IVPUSH Q15M PRN PRN Reason: Pain (severe 7-10) Stop: 07/18/17 14:38 Last Admin: 07/18/17 14:55 Dose: 0.5 mg Vancomycin HCl 1 gm/ Sodium (Chloride) 250 mls @ 100 mls/hr IV BID ONE Stop: 07/18/17 00:15 Last Admin: 07/17/17 23:49 Dose: 100 mls/hr Promethazine HCl 12.5 mg/ (Sodium Chloride) 50.5 mls @ 100 mls/hr IV Q6H PRN PRN Reason: Nausea/Vomiting Dextrose/Water (Dextrose 5% In Water) 1,000 mls @ 100 mls/hr IV ASDIRECTED [facility] Last Admin: 07/18/17 06:11 Dose: 100 mls/hr Dextrose/Water (Dextrose 5% In Water) Confirm Administered Dose 1,000 mls @ as directed .ROUTE .STK-MED ONE Stop: 07/18/17 06:05 Last Admin: 07/18/17 08:03 Dose: Not Given Vancomycin HCl 1 gm/ Sodium (Chloride) 250 mls @ 250 mls/hr IV Q12H [facility] Last Admin: 07/21/17 00:06 Dose: Not Given Lidocaine HCl (Xylocaine-Mpf 1%) Confirm Administered Dose 4 mls @ as directed .ROUTE .STK-MED ONE Stop: 07/18/17 11:56 Lactated Ringer's (Ringers, Lactated) Confirm Administered Dose 1,000 mls @ as directed .ROUTE .STK-MED ONE Stop: 07/18/17 14:03 Magnesium Sulfate 2 gm/ Premix 50 mls @ 25 mls/hr IV ONETIME ONE Stop: 07/19/17 13:29 Last Admin: 07/19/17 12:12 Dose: 25 mls/hr Vancomycin HCl 1 gm/ Sodium (Chloride) 250 mls @ 250 mls/hr IV Q8H [facility] Last Admin: 07/22/17 06:06 Dose: 250 mls/hr Ibuprofen (Motrin) 600 mg PO Q6H PRN PRN Reason: Pain Last Admin: 07/21/17 20:20 Dose: 600 mg Insulin Aspart (Novolog) 0 unit SUBCUT QIDACANDBED [facility] PRN Reason: Protocol Last Admin: 07/22/17 10:57 Dose: 9 units Insulin Detemir (Levemir) 13 unit SUBCUT BEDTIME [facility] Last Admin: 07/19/17 22:04 Dose: 13 units Insulin Detemir (Levemir) 15 unit SUBCUT ONETIME ONE Stop: 07/17/17 21:57 Last Admin: 07/18/17 02:54 Dose: Not Given Insulin Detemir (Levemir) 15 unit SUBCUT ONETIME ONE Stop: 07/18/17 00:31 Last Admin: 07/18/17 00:24 Dose: Not Given Insulin Detemir (Levemir) 15 unit SUBCUT BEDTIME [facility] Last Admin: 07/20/17 20:05 Dose: 15 units Insulin Detemir (Levemir) 20 unit SUBCUT BEDTIME [facility] Last Admin: 07/21/17 20:41 Dose: 20 units Ketorolac Tromethamine (Toradol) 60 mg IM ONETIME ONE Stop: 07/17/17 20:07 Last Admin: 07/17/17 20:10 Dose: 60 mg Levothyroxine Sodium (Synthroid) 100 mcg PO ACBREAKFAST [facility] Levothyroxine Sodium (Levothyroxine) 112 mcg PO ACBREAKFAST [facility] Last Admin: 07/22/17 06:06 Dose: 112 mcg Lisinopril (Prinivil) 10 mg PO DAILY [facility] Last Admin: 07/22/17 09:53 Dose: 10 mg Lorazepam (Ativan) 2 mg IVPUSH Q4H PRN PRN Reason: Seizures Lorazepam (Ativan) 1 mg IV Q6H PRN PRN Reason: Anxiety Last Admin: 07/18/17 23:59 Dose: 1 mg Lorazepam (Ativan) 1 mg IVPUSH Q12HR PRN PRN Reason: Anxiety Last Admin: 07/21/17 20:38 Dose: 1 mg Magnesium Sulfate (Pharmacy To Dose - Magnesium Replacement) 0 dose .XX ASDIRECTED PRN PRN Reason: RX TO WATCH MAG LEVELS Meperidine HCl (Demerol) 12.5 mg IVPUSH ONETIME PRN PRN Reason: Shivering Stop: 07/18/17 16:00 Metoprolol Tartrate (Lopressor) 5 mg IVPUSH Q4H PRN PRN Reason: Tachycardia Midazolam HCl (Versed 1 Mg/Ml) Confirm Administered Dose 2 mg .ROUTE .STK-MED ONE Stop: 07/18/17 11:55 Morphine Sulfate (Morphine) 2 mg IVPUSH Q2H PRN PRN Reason: Pain (moderate 4-6) Ondansetron HCl (Zofran Odt) 4 mg PO Q6H ONE Stop: 07/17/17 21:47 Last Admin: 07/17/17 23:51 Dose: Not Given Ondansetron HCl (Zofran) 4 mg IV Q6H PRN PRN Reason: Nausea/Vomiting Ondansetron HCl (Zofran) Confirm Administered Dose 4 mg .ROUTE .STK-MED ONE Stop: 07/18/17 11:56 Ondansetron HCl (Zofran) 4 mg IVPUSH ONETIME PRN PRN Reason: Nausea/Vomiting Stop: 07/18/17 16:00 Oxycodone HCl (Oxycodone) 5 mg PO Q4H PRN PRN Reason: Pain Oxycodone HCl (Oxycodone) 5 - 10 mg PO Q4H PRN PRN Reason: Pain Last Admin: 07/22/17 09:53 Dose: 10 mg Pneumococcal Polyvalent Vaccine (Pneumovax 23) 0.5 ml IM .ONCE ONE Stop: 07/18/17 03:01 Last Admin: 07/22/17 11:06 Dose: Not Given Polyethylene Glycol (Miralax) 17 gm PO DAILY PRN PRN Reason: Constipation Potassium Chloride (Pharmacy To Dose - Potassium Replacement) 0 dose .XX ASDIRECTED PRN PRN Reason: RX TO WATCH K LEVELS Propofol (Diprivan 20 Ml) Confirm Administered Dose 200 mg .ROUTE .STK-MED ONE Stop: 07/18/17 11:55 Senna/Docusate Sodium (Senna Plus) 1 tab PO BID PRN PRN Reason: Constipation Succinylcholine Chloride (Quelicin) Confirm Administered Dose 200 mg .ROUTE .STK -MED ONE Stop: 07/18/17 12:18 Temazepam (Restoril) 15 mg PO BEDTIME PRN PRN Reason: Sleep Last Admin: 07/19/17 02:02 Dose: 15 mg Topiramate (Topamax) 25 mg PO BID SB Last Admin: 07/22/17 10:00 Dose: 25 mg Vancomycin HCl (Pharmacy To Dose - Vancomycin) 0 dose .XX ASDIRECTED PRN PRN Reason: RX TO DOSE VANCOMYCIN *Q Meaningful Use (DIS) - VTE *Q VTE Criteria *Q: - Stroke *Q Stroke Criteria *Q: - AMI *Q AMI Criteria *Q:
--- NOTE | 2017-07-25 21:46 | PCM.OPNOTE ---
- General Post-Op/Procedure Note Date of Surgery/Procedure: 07/18/17 Operative Procedure(s): incision and drainage of left wrist subcutaneous abscess Pre Op Diagnosis: left wrist subcutaneous abscess Post-Op Diagnosis: Same Anesthesia Technique: General LMA Primary Surgeon: Krishna Melgar Anesthesia Provider: Gaudencio Nash Land Use Planner: Anastasia Joyce in mLs: 5 Complications: None Condition: Good
--- NOTE | 2017-07-25 23:06 | OR ---
DATE OF OPERATION: 07/18/2017 SURGEON: Krishna Melgar MD OPERATION PERFORMED: Incision and drainage of the left wrist subcutaneous abscess. PREOPERATIVE DIAGNOSIS: Left wrist subcutaneous abscess. POSTOPERATIVE DIAGNOSIS: Left wrist subcutaneous abscess. ANESTHESIA: General LMA. ANESTHESIA PROVIDER: Gaudencio Nash. ASSISTANTS: Anastasia Joyce PA-C. ESTIMATED BLOOD LOSS: 5 mL. COMPLICATIONS: None. CONDITION: Stable. DESCRIPTION OF PROCEDURE: The patient was identified in the preop holding area. Proper site was marked and identified by the surgeon. The patient was taken back to the operative theater where after adequate anesthesia, the patient's left upper extremity was then sterilely prepped and draped in the usual sterile fashion. OR time-out was performed. At this time, the subcutaneous palpable abscess over the ulnar side of the left wrist was palpated. A semi-elliptical incision was made directly over the palpable abscess. This was taken through the subcutaneous tissues down through the fascial layer. It was noted not to go into the carpal joint. Purulent material then came out of this abscess region. Both anaerobic and aerobic cultures were then taken and sent to the lab. A 3 L of normal saline was rinsed through the abscess and a curette was used to roughen the tissue. All of the tissue was then debrided out. At this time, it was found to be adequately irrigated. 4-0 nylon simple suture was used for closure of the skin. The patient was placed in a sterile soft dressing. At this time, the patient tolerated the procedure well and sent to PACU in stable condition. MMODAL /[id number]
== END 2017-07-22 12:05 | disposition home or self-care (01) | DRG 603 ==
LOC: JD.ED 17:55 → JD.MS 22:05
PROVIDERS: ADMIT Orthopaedic Surgery; ATTEND Orthopaedic Surgery
PROC: 0X9F0ZX Drainage of Left Lower Arm, Open Approach, Diagnostic (ICD-10-PCS; principal; 2017-07-18)
DX: L03.114 Cellulitis of left upper limb (principal); F11.20 Opioid dependence, uncomplicated; F15.20 Other stimulant dependence, uncomplicated; F13.20 Sedative, hypnotic or anxiolytic dependence, uncomplicated; M19.90 Unspecified osteoarthritis, unspecified site; F41.9 Anxiety disorder, unspecified; E10.65 Type 1 diabetes mellitus with hyperglycemia; Z79.84 Long term (current) use of oral hypoglycemic drugs; E03.9 Hypothyroidism, unspecified; Z88.0 Allergy status to penicillin; Z88.1 Allergy status to other antibiotic agents; Z88.8 Allergy status to other drugs, medicaments and biological substances; Z79.899 Other long term (current) drug therapy; F17.200 Nicotine dependence, unspecified, uncomplicated; F12.20 Cannabis dependence, uncomplicated; F32.9 Major depressive disorder, single episode, unspecified
CPT/HCPCS: 00400; 20610; 36415; 73100-26-LT; 73100-LT; 80048; 80053; 80061; 80202; 80306; 81001; 81025; 82043; 82044; 82962; 83036; 83735; 84439; 84443; 85025; 85652; 86140; 87075; 87077; 87184; 87205; 87641; 93971-26-LT; 93971-LT; 94762; 96372; 99284; 99285-25; A9270-GY; C1751; G0480; J0330; J0690; J1170; J1200; J1815-GY; J1885; J2060; J2250; J2405; J2704; J3010; J3370; J3475; J7050; J7060; J7120